=== PATIENT | female | born 1965 | race Caucasian/White ===

== ENCOUNTER 2016-07-23 20:27 | Observation (INO) | payer BC ==
[2016-07-23] MEDS ORDERED: BABY ASPIRIN 81 MG CHEW PO ONE (20:47)
[2016-07-23] MEDS ORDERED: Zofran 4 MG/2 ML VIAL IV ONE (20:53)
[2016-07-23] MEDS ORDERED: Hydromorphone 1 mg/ml Ampule IV ONE (20:54)
[2016-07-23] MEDS ORDERED: Sodium Chloride 0.9% 1000 ML 1,000 ML ONE (20:59)
[2016-07-23] MEDS ORDERED: Zofran 4 MG/2 ML VIAL ONE (20:59)
[2016-07-23] MEDS ORDERED: BABY ASPIRIN 81 MG CHEW ONE (20:59)
[2016-07-23] MEDS ORDERED: Hydromorphone 1 mg/ml Ampule ONE (20:59)
--- NOTE | 2016-07-23 21:00 | ERPHSYRPT ---
- History of Present Illness Time Seen by Provider: 07/23/16 20:45 Historian: patient Exam Limitations: clinical condition Patient Subjective Stated Complaint: pt is co pain in right shoulder radiating down arm to chest -increased pain with movement -no injury increased pain with movement Triage Nursing Assessment: pt is awake and alert and able to answer questions Physician History: PATIENT WITH A HISTORY OF HYPOTHYROIDISM COMPLAINS OF CHRONIC RIGHT SHOULDER PAIN FOR YEARS, NOW HAS RIGHT SIDED CHEST PAIN ADJACENT TO RIGHT SHOULDER. HAS HAD A PRODUCTIVE COUGH YELLOW GREEN SPUTUM FOR 3 WEEKS. DENIES FEVER OR CHILLS OR DYSPNEA. Timing/Duration: day(s) Activities at Onset: none Quality: sharpness Location: other (RIGHT LATERAL CHEST) Severity of Pain-Max: moderate Severity of Pain-Current: moderate Modifying Factors: Improves With: coughing, change in position Associated Symptoms: cough, hurts to breathe Prior Chest Pain/Cardiac Workup: no prior cardiac workup Nitro Today/Relief: no nitro taken today Aspirin Treatment Today: 81 mg x 4, provided by ED Allergies/Adverse Reactions: morphine Adverse Reaction (Mild, Verified 08/27/15 23:20) ITCH Home Medications: Acyclovir 800 mg [Zovirax 800 mg] 800 mg PO UD 07/20/15 [History] Duloxetine HCl 30 mg [Cymbalta 30 MG Capsule] 60 mg PO DAILY 07/20/15 [ History] Estradiol [Estrace] 2 mg PO DAILY 07/20/15 [History] Levothyroxine Sodium 150 Mcg [Synthroid 150 Mcg] 137 mcg PO DAILY 07/20/15 [History] Oxcarbazepine 300 mg [Trileptal 300 MG Tablet] 300 mg PO BID 07/20/15 [ History] Hx Tetanus, Diphtheria Vaccination/Date Given: Yes Hx Influenza Vaccination/Date Given: No Hx Pneumococcal Vaccination/Date Given: No - Review of Systems Constitutional: No Fever, No Chills Eyes: No Symptoms Ears, Nose, & Throat: No Symptoms Respiratory: Cough, No Dyspnea Cardiac: No Chest Pain, No Edema, No Syncope Abdominal/Gastrointestinal: No Symptoms, No Abdominal Pain, No Nausea, No Vomiting, No Diarrhea Genitourinary Symptoms: No Symptoms, No Dysuria Musculoskeletal: Joint Pain, Joint Swelling, No Back Pain, No Neck Pain Skin: No Rash Neurological: No Dizziness, No Focal Weakness, No Sensory Changes Psychological: No Symptoms Endocrine: No Symptoms All Other Systems: Reviewed and Negative - Past Medical History Pertinent Past Medical History: Yes Neurological History: No Pertinent History ENT History: No Pertinent History Cardiac History: No Pertinent History Respiratory History: No Pertinent History Endocrine Medical History: Diabetes Type II, Hypothyroidism Musculoskeletal History: No Pertinent History GI Medical History: No Pertinent History History: No Pertinent History Psycho-Social History: No Pertinent History Female Reproductive Disorders: Other Other Medical History: uterine ablation - Past Surgical History Past Surgical History: Yes Neuro Surgical History: No Pertinent History Cardiac: No Pertinent History Respiratory: No Pertinent History Gastrointestinal: No Pertinent History Musculoskeletal: Other Female Surgical History: Section, Hysterectomy, Lumpectomy Other Surgical History: carpal tunnel - Social History Smoking Status: Never smoker Exposure to second hand smoke: No Drug Use: none Patient Lives Alone: No Significant Family History: no pertinent family hx - Female History Hx Last Menstrual Period: hyst Hx Now: No - Nursing Vital Signs Temperature: 98 F Temperature Source: Oral Pulse Rate: 78 Respiratory Rate: 16 Pain Intensity: 8 - Physical Exam General Appearance: mild distress Eye Exam: PERRL/EOMI, eyes nml inspection Ears, Nose, Throat Exam: normal ENT inspection, moist mucous membranes Neck Exam: normal inspection, non-tender, supple, full range of motion Respiratory Exam: normal breath sounds, chest tenderness (TENDERNESS RIGHT CHEST WALL 1ST TO 4TH ICS ADJACENT TO RIGHT SHOULDER), diminished breath sounds (AT RIGHT BASE), No respiratory distress Cardiovascular Exam: regular rate/rhythm, normal heart sounds Gastrointestinal/Abdomen Exam: soft, normal bowel sounds, No tenderness, No mass Back Exam: normal inspection, No CVA tenderness, No vertebral tenderness Extremity Exam: normal inspection, limited range of motion, tenderness (MARKED TENDERNESS RIGHT HUMERAL HEAD, NO SWELLING OR ECCHYMOSIS) Neurologic Exam: alert, oriented x 3, cooperative, normal mood/affect, sensation nml, No motor deficits Skin Exam: normal color, warm, dry SpO2 Interpretation: normal SpO2: 99 Oxygen Delivery: Room Air - Course EKG Interpreted by Me: RATE, Sinus Rhythm, NORMAL AXIS, Right [place] Deviation - Radiology Exams Chest X-ray Interpretation: Interpreted by me (RIGHT INFRAHILAR INFILTRATE,) Ordered Tests: Active Orders 24 hr Category Date Time Status Activity as Tolerated TOLERATED Activity 07/23/16 23:26 Ordered Admission/Status Order ROUTINE Care 07/23/16 23:23 Ordered Call Admit Doctor for Orders ROUTINE Care 07/23/16 23:23 Ordered Code Status Order ROUTINE Care 07/23/16 23:23 Ordered EKG-ER Only STAT Care 07/23/16 20:47 Active EKG-ER Only STAT Care 07/23/16 20:50 Active IV Care Q6H Care 07/23/16 23:23 Ordered IV Insertion STAT Care 07/23/16 20:47 Active IV Insertion STAT Care 07/23/16 20:49 Active Implement Chest Pain Pathway ROUTINE Care 07/23/16 23:23 Ordered Oxygen-ED Only NASAL CANNULA 2 lpm Care 07/23/16 20:47 Active Jose Raul Alonzo, Apply ROUTINE Care 07/23/16 23:23 Ordered Telemetry ROUTINE Care 07/23/16 23:23 Ordered Vital Signs Q4H Care 07/23/16 23:23 Ordered Weight,Daily 0600 Care 07/23/16 23:23 Ordered Cardiac Diet Diet 07/23/16 Breakfast Ordered CHEST 1 VIEW (PORTABLE) Stat Exams 07/23/16 22:28 Taken BLOOD CULTURE Stat Lab 07/23/16 20:45 Ordered CBC W DIFF Stat Lab 07/23/16 21:02 Completed CMP Stat Lab 07/23/16 21:02 Completed D-DIMER QUANTITATION Stat Lab 07/23/16 21:00 Completed PROTIME WITH INR Stat Lab 07/23/16 21:02 Completed TROPONIN Q3H Lab 07/23/16 21:02 Completed TROPONIN Q3H Lab 07/24/16 00:00 Ordered TROPONIN Q3H Lab 07/24/16 03:00 Ordered TROPONIN Q3H Lab 07/24/16 06:00 Ordered TROPONIN Q3H Lab 07/24/16 09:00 Ordered EKG Q8HX2,QAMX3,PRN RT 07/23/16 23:23 Ordered Pulse Oximetry Q4H RT 07/23/16 23:23 Ordered Transfer Order Routine Transfer 07/23/16 23:22 Ordered Medication Summary Generic Name Dose Route Start Last Admin Trade Name Freq PRN Reason Stop Dose Admin Acetaminophen 650 mg 07/23/16 23:23 Tylenol 325 Mg PO 08/22/16 23:22 Q4H PRN PRN PAIN AND/OR FEVER Acetaminophen/Hydrocodone Bitart 1 tab 07/23/16 23:28 Lena 10/325 Mg Tablet PO 07/28/16 23:27 Q6H PRN PRN PAIN Aspirin 325 mg 07/24/16 10:00 Ecotrin 325 Mg PO 08/23/16 09:59 DAILY REGINA Duloxetine HCl 60 mg 07/24/16 22:00 Cymbalta 30 Mg Capsule PO 08/23/16 21:59 HS REGINA Sodium Chloride 1,000 mls @ 100 mls/hr 07/23/16 21:00 07/23/16 21:09 Sodium Chloride 0.9% 1000 Ml IV 08/22/16 20:59 100 mls/hr .Q10H REGINA Administration Azithromycin 250 mls @ 125 mls/hr 07/23/16 23:11 Zithromax 500 Mg/ 250 Ml Nacl Premix IV 07/24/16 01:10 STAT ONE Ceftriaxone Sodium/Dextrose 50 mls @ 100 mls/hr 07/23/16 23:11 07/23/16 23:23 Rocephin 1 Gm-D5w 50 Ml Bag IV 07/23/16 23:40 100 mls/hr STAT ONE Administration Ceftriaxone Sodium/Dextrose 1 g in 50 mls @ 100 mls/hr 07/23/16 23:30 Rocephin 1 Gm-D5w 50 Ml Bag IV 08/22/16 23:29 Q24H REGINA Sodium Chloride 500 mls @ 50 mls/hr 07/23/16 23:30 Sodium Chloride 0.9% 500 Ml IV 08/22/16 23:29 .Q10H [facility] Levothyroxine Sodium 150 mcg 07/24/16 10:00 Synthroid 150 Mcg PO 08/23/16 09:59 QAM [facility] Nitroglycerin 0.4 mg 07/23/16 23:23 Nitrostat 0.4 Mg Tablet SL 08/22/16 23:22 .Q5MIN PRN CHEST PAIN Ondansetron HCl 4 mg 07/23/16 23:23 Zofran 4 Mg/2 Ml Vial IV 08/22/16 23:22 Q4H PRN PRN NAUSEA/VOMITING Oxcarbazepine 300 mg 07/24/16 10:00 Trileptal 300 Mg Tablet PO 08/23/16 09:59 BID REGINA Discontinued Medications Generic Name Dose Route Start Last Admin Trade Name Guillermina PRKem Reason Stop Dose Admin Aspirin 324 mg 07/23/16 20:47 07/23/16 21:08 Baby Aspirin 81 Mg Chew PO 07/23/16 20:48 324 mg STAT ONE Administration Aspirin Confirm 07/23/16 20:59 Baby Aspirin 81 Mg Chew Administered 07/23/16 21:00 Dose 324 mg .ROUTE .STK-MED ONE Hydromorphone HCl 1 mg 07/23/16 20:54 07/23/16 21:09 Hydromorphone 1 Mg/Ml Ampule IV 07/23/16 20:55 1 mg STAT ONE Administration Hydromorphone HCl Confirm 07/23/16 20:59 Hydromorphone 1 Mg/Ml Ampule Administered 07/23/16 21:00 Dose 1 mg .ROUTE .STK-MED ONE Ceftriaxone Sodium/Dextrose Confirm 07/23/16 23:20 Rocephin 1 Gm-D5w 50 Ml Bag Administered 07/23/16 23:21 Dose 50 mls @ ud IV .STK-MED ONE Ketorolac Tromethamine 30 mg 07/23/16 22:11 07/23/16 22:23 Toradol 30 Mg Injection IV 07/23/16 22:12 30 mg STAT ONE Administration Ketorolac Tromethamine Confirm 07/23/16 22:21 Toradol 30 Mg Injection Administered 07/23/16 22:22 Dose 30 mg .ROUTE .STK-MED ONE Ondansetron HCl 4 mg 07/23/16 20:53 07/23/16 21:08 Zofran 4 Mg/2 Ml Vial IV 07/23/16 20:54 4 mg STAT ONE Administration Ondansetron HCl Confirm 07/23/16 20:59 Zofran 4 Mg/2 Ml Vial Administered 07/23/16 21:00 Dose 4 mg .ROUTE .STK-MED ONE Lab/Rad Data: Laboratory Result Diagrams 07/23/16 21:02 07/23/16 21:02 Laboratory Results 07/23/16 07/23/16 07/23/16 Range/Units 21:02 21:02 21:02 WBC (4.0-10.5) K/mm3 RBC (4.1-5.4) M/mm3 Hgb (12.0-16.0) gm/dl Hct (35-47) % MCV (78-100) fl MCH (26-32) pg MCHC (32-36) g/dl RDW (11.5-14.0) % Plt Count (150-450) K/mm3 MPV (6-9.5) fl Gran % (36.0-66.0) % Lymphocytes % (24.0-44.0) % Monocytes % (0.0-12.0) % Eosinophils % (0.00-5.0) % Basophils % (0.0-0.4) % Basophils # (0-0.4) INR 1.10 (0.8-3.0) D-Dimer (0.00-0.49) mg/L Sodium 137 (136-145) mEq/L Potassium 3.6 (3.5-5.1) mEq/L Chloride 101 (98-107) mEq/L Carbon Dioxide 29.1 (21-32) mEq/L Anion Gap 10.3 (5-15) MEQ/L BUN 24 H (9-20) mg/dL Creatinine 1.38 H (0.55-1.30) mg/dl Estimated GFR 43 ML/MIN Glucose 111 H (70-110) MG/DL Calcium 8.4 L (8.5-10.1) mg/dL Total Bilirubin 0.2 (0.2-1.0) mg/dL AST 22 (15-37) U/L ALT 15 (12-78) U/L Alkaline Phosphatase 149 H (46-116) U/L Troponin I < 0.017 (0.000-0.056) ng/ml Serum Total Protein 6.9 (6.4-8.2) gm/dL Albumin 3.4 (3.4-5.0) g/dL 07/23/16 07/23/16 Range/Units 21:02 21:00 WBC 10.6 H (4.0-10.5) K/mm3 RBC 4.24 (4.1-5.4) M/mm3 Hgb 12.2 (12.0-16.0) gm/dl Hct 37.0 (35-47) % MCV 87.3 (78-100) fl MCH 28.8 (26-32) pg MCHC 33.0 (32-36) g/dl RDW 12.9 (11.5-14.0) % Plt Count 280 (150-450) K/mm3 MPV 9.4 (6-9.5) fl Gran % 65.6 (36.0-66.0) % Lymphocytes % 25.2 (24.0-44.0) % Monocytes % 7.5 (0.0-12.0) % Eosinophils % 1.5 (0.00-5.0) % Basophils % 0.2 (0.0-0.4) % Basophils # 0.02 (0-0.4) INR (0.8-3.0) D-Dimer 0.257 (0.00-0.49) mg/L Sodium (136-145) mEq/L Potassium (3.5-5.1) mEq/L Chloride (98-107) mEq/L Carbon Dioxide (21-32) mEq/L Anion Gap (5-15) MEQ/L BUN (9-20) mg/dL Creatinine (0.55-1.30) mg/dl Estimated GFR ML/MIN Glucose (70-110) MG/DL Calcium (8.5-10.1) mg/dL Total Bilirubin (0.2-1.0) mg/dL AST (15-37) U/L ALT (12-78) U/L Alkaline Phosphatase (46-116) U/L Troponin I (0.000-0.056) ng/ml Serum Total Protein (6.4-8.2) gm/dL Albumin (3.4-5.0) g/dL - Progress Progress: improved Air Movement: good Blood Culture(s) Obtained: Yes Antibiotics given: Yes (ROCEPHIN 1GM, ZITHROMAX 500MG IVPB) Discussed with Dr.: Marc (AT 2245 FOR OBSERVATION) - Departure Time of Disposition: 23:30 Departure Disposition: Observation Clinical Impression: PNEUMONIA, ATYPICAL CHEST PAIN Condition: Stable Critical Care Time: No Referrals: DAHIANA DIAZ [Primary Care Provider] -
[2016-07-23 21:06] LABS: BASOPHIL % 0.2 % (0.0-0.4); Eosinophil % 1.5 % (0.00-5.0); Granulocytes % 65.6 % (36.0-66.0); Lymphocytes % 25.2 % (24.0-44.0); Mean Cell Volume 87.3 fl (78-100); Mean Corpuscular Hemoglobin 28.8 pg (26-32); Mean Platelet Volume 9.4 fl (6-9.5); Monocytes % 7.5 % (0.0-12.0); Platelet Count 280 K/mm3 (150-450); Red Blood Count 4.24 M/mm3 (4.1-5.4); Red Cell Distribution Width 12.9 % (11.5-14.0); White Blood Count 10.6 K/mm3 (4.0-10.5)
[2016-07-23] MEDS: Sodium Chloride 0.9% 1000 ML 1,000 ML IV SCH (21:09)
[2016-07-23 21:25] LABS: ALBUMIN 3.4 g/dL (3.4-5.0); ANION GAP 10.3 MEQ/L (5-15); BILIRUBIN,TOTAL 0.2 mg/dL (0.2-1.0); Carbon Dioxide 29.1 mEq/L (21-32); Potassium 3.6 mEq/L (3.5-5.1); Total Protein 6.9 gm/dL (6.4-8.2)
[2016-07-23 21:27] LABS: INR 1.1 (0.8-3.0); PROTIME 12.3 SECONDS (9.95-12.35)
[2016-07-23] MEDS ORDERED: TORAdol 30 mg Injection IV ONE (22:11)
[2016-07-23] MEDS ORDERED: TORAdol 30 mg Injection ONE (22:21)
[2016-07-23] MEDS ORDERED: ROCEPHIN 1 Gm-D5w 50 ml Bag** 50 ML IV ONE ×2 (23:11→23:20)
[2016-07-23] MEDS ORDERED: Zithromax 500 MG/ 250 ML NaCl Premix 250 ML IV ONE ×2 (23:11→23:33)
[2016-07-23] MEDS ORDERED: Nitrostat 0.4 MG Tablet SL PRN (23:23)
[2016-07-23] MEDS ORDERED: Zofran 4 MG/2 ML VIAL IV PRN (23:23)
[2016-07-23] MEDS ORDERED: TYLENOL 325 MG PO PRN (23:23)
[2016-07-23] MEDS ORDERED: ROCEPHIN 1 Gm-D5w 50 ml Bag** 1 G/50 ML IVPB IV SCH (23:30)
[2016-07-23] MEDS ORDERED: Sodium Chloride 0.9% 500 ML 500 ML IV SCH (23:30)
[2016-07-24] MEDS: Norco 10/325 MG Tablet PO PRN ×4 (01:41→20:54)
[2016-07-24] MEDS: Sodium Chloride 0.9% 1000 ML 1,000 ML IV SCH ×2 (07:12→20:58)
--- NOTE | 2016-07-24 08:45 | XRAY ---
Indication: Chest pain. Comparison: April 26, 2011. Portable chest less inflated today accentuating the cardiopulmonary structures. Query subtle right infrahilar infiltrate/atelectasis. Remaining heart, lungs, and bony thorax normal.
--- NOTE | 2016-07-24 09:14 | PCM.HP ---
History of Present Illness - Chief Complaint Chief Complaint: shoulder and chest pain History of Present Illness: is a 50 year old female who came to ER last night c/o R shoulder pain x 1 d. Pain is anterior R shoulder radiating into R upper chest and R upper back. Was 9/10 last night and she came to the ER. Worse with movement, better with pain meds. Troponins have been normal. CXR revealed R infrahilar infiltrates; abx given. D-dimer neg. BP elevated to 180 systolic. Creatinine elevated from past labs. Pt c/o some intermittent shoulder pain over the past few months. - Review of Systems Constitutional: Fever (2 wks ago) Respiratory: Cough (x 3 wjs) Cardiac: Chest Pain Abdominal/Gastrointestinal: Abdominal Pain (lower abd pain, intermittent, with diarrhea), Diarrhea (more frequent stools in past week or so. ) Musculoskeletal: Joint Pain Psychological: No Anxiety, No Depression, No Suicidal Ideations Medications & Allergies Home Medications: Home Medication List Acyclovir 800 mg [Zovirax 800 mg] 800 mg PO UD 07/20/15 [History Confirmed 07/24/16] Duloxetine HCl 30 mg [Cymbalta 30 MG Capsule] 60 mg PO DAILY 07/20/15 [ History Confirmed 07/24/16] Estradiol [Estrace] 2 mg PO DAILY 07/20/15 [History Confirmed 07/24/16] Levothyroxine Sodium 150 Mcg [Synthroid 150 Mcg] 137 mcg PO DAILY 07/20/15 [History Confirmed 07/24/16] Oxcarbazepine 300 mg [Trileptal 300 MG Tablet] 300 mg PO BID 07/20/15 [ History Confirmed 07/24/16] Hydrocodone/APAP 10/325 mg [[place] 10/325 MG Tablet] 1 tab PO Q4H PRN PRN # 15 tablet 08/28/15 [Rx Confirmed 07/24/16] Allergies/Adverse Reactions: Allergies Allergy/AdvReac Type Severity Reaction Status Date / Time morphine AdvReac Mild ITCH Verified 08/27/15 23:20 - Past Medical History Past Medical History: Yes Neurological History: No Pertinent History ENT History: No Pertinent History Cardiac History: No Pertinent History Respiratory History: No Pertinent History Endocrine Medical History: Hypothyroidism Musculoskelatal History: No Pertinent History GI Medical History: No Pertinent History History: No Pertinent History Pyscho-Social History: No Pertinent History Reproductive Disorders: Other Comment: uterine ablation - Female History Hx Last Menstrual Period: hyst Are you now?: No - Past Surgical History Past Surgical History: Yes Neuro Surgical History: No Pertinent History Cardiac History: No Pertinent History Respiratory Surgery: No Pertinent History GI Surgical History: No Pertinent History Genitourinary Surgical Hx: No Pertinent History Musculskeletal Surgical Hx: Other Female Surgical History: Section, Hysterectomy, Lumpectomy Other Surgical History: carpal tunnel - Social History Smoking Status: Never smoker Exposure to second hand smoke: No Alcohol: None Drug Use: none Significant Family History: no pertinent family hx - Physical Exam Vital Signs: Vital Signs - 24 hr Temp Pulse Resp BP Pulse Ox 07/24/16 08:00 20 07/24/16 07:58 97.9 F 72 20 180/81 94 L 07/24/16 04:00 97.7 F 73 22 153/71 98 07/24/16 00:26 97.9 F 82 17 138/17 97 General Appearance: no apparent distress, obese Neurologic Exam: alert, oriented x 3, cooperative Eye Exam: eyes nml inspection Neck Exam: normal inspection Respiratory Exam: normal breath sounds, lungs clear, other (R superior lateral chest ttp; no lesions), No crackles/rales, No rhonchi, No wheezing Cardiovascular Exam: regular rate/rhythm, normal heart sounds, No murmur Back Exam: normal inspection Extremity Exam: other (R shoulder ttp throughout; no lesions. no crepitus.), No pedal edema, No swelling Skin Exam: normal color, warm, dry Results - Labs Lab/Micro Results: Lab Results-Last 24 Hours 07/24/16 07/24/16 Range/Units 03:18 05:50 Troponin I < 0.017 < 0.017 (0.000-0.056) ng/ml - Other Procedures and Tests Respiratory Therapy 07/25/16 05:00 EKG DAILY 07/26/16 05:00 EKG DAILY 07/27/16 05:00 EKG DAILY Assessment/Plan (1) Chest pain Current Visit: Yes Status: Acute Assessment & Plan: troponins are negative Code(s): R07.9 - CHEST PAIN, UNSPECIFIED (2) Pneumonia Current Visit: Yes Status: Acute Qualifiers: Pneumonia type: due to unspecified organism Laterality: right Lung location: middle lobe of lung Qualified Code(s): J18.1 - Lobar pneumonia, unspecified organism Assessment & Plan: She is on zithromax and rocephin IV. exam benign. Code(s): J18.9 - PNEUMONIA, UNSPECIFIED ORGANISM (3) Shoulder pain Current Visit: Yes Status: Acute Qualifiers: Laterality: right Chronicity: acute Qualified Code(s): M25.511 - Pain in right shoulder Assessment & Plan: acute on chronic. check XR. Code(s): M25.519 - PAIN IN UNSPECIFIED SHOULDER (4) Renal insufficiency Current Visit: Yes Status: Acute Assessment & Plan: recheck in a.m., continue on IV fluids. previous Cr 1.09 in Apr 2016. (5) Elevated blood pressure reading without diagnosis of hypertension Current Visit: Yes Status: Acute Assessment & Plan: give norvasc here Code(s): R03.0 - ELEVATED BLOOD-PRESSURE READING, W/O DIAGNOSIS OF HTN
--- NOTE | 2016-07-24 09:48 | XRAY ---
Indication: Pain. No known injury. Comparison: None 3 views of the right shoulder demonstrates right lung calcified granuloma. No other bony, articular, or soft tissue abnormalities.
[2016-07-24] MEDS: SYNTHROID 150 MCG PO SCH (10:06)
[2016-07-24] MEDS: Trileptal 300 MG Tablet PO SCH ×2 (10:06→20:51)
[2016-07-24] MEDS: Ecotrin 325 MG PO SCH (10:06)
[2016-07-24] MEDS: NORVASC 5 MG PO SCH (10:08)
[2016-07-24] MEDS ORDERED: Cymbalta 30 MG Capsule PO SCH (22:00)
[2016-07-24] MEDS ORDERED: Zithromax 500 MG/ 250 ML NaCl Premix 250 ML IV SCH (22:00)
[2016-07-24] MEDS ORDERED: ROCEPHIN 1 Gm-D5w 50 ml Bag** 1 G/50 ML IVPB IV SCH (22:00)
[2016-07-25 06:01] LABS: BASOPHIL % 0.3 % (0.0-0.4); Eosinophil % 2.3 % (0.00-5.0); Lymphocytes % 34.3 % (24.0-44.0); Mean Cell Volume 89.1 fl (78-100); Mean Platelet Volume 9.5 fl (6-9.5); Monocytes % 5.1 % (0.0-12.0); Platelet Count 234 K/mm3 (150-450); Red Blood Count 3.96 M/mm3 (4.1-5.4); Red Cell Distribution Width 12.8 % (11.5-14.0); White Blood Count 6.8 K/mm3 (4.0-10.5)
[2016-07-25 07:20] VITALS: O2SAT 94
--- NOTE | 2016-07-25 08:50 | PCM.DS ---
Discharge Summary Date of Admission: 07/24/16 00:10 Admitting Physician: DAHIANA DIAZ Primary Care Provider: DAHIANA DIAZ Allergies Allergies morphine Adverse Reaction (Mild, Verified 08/27/15 23:20) ITCH Hospital Summary - Hospital Course Hospital Course: Pt admitted through ER with shoulder pain, found to have pneumonia. Today Pt is feeling much better. Shoulder pain has resolved. Maye po well. - Vitals & Intake/Output Vital Signs: Vital Signs Temperature 97.9 F 07/25/16 07:19 Pulse Rate 86 07/25/16 07:19 Respiratory Rate 18 07/25/16 07:19 Blood Pressure 135/65 07/25/16 07:19 O2 Sat by Pulse Oximetry 94 L 07/25/16 07:19 Intake & Output: Intake & Output 07/22/16 07/23/16 07/24/16 07/25/16 11:59 11:59 11:59 11:59 Intake Total 1323 3694 Output Total 600 Balance 723 3694 Weight 95.98 kg 96.887 kg - Lab Result Diagrams: 07/25/16 05:38 07/23/16 21:02 Lab Results-Last 24 Hrs: Lab Results-Last 24 Hours 07/24/16 07/25/16 Range/Units 09:00 05:38 WBC 6.8 (4.0-10.5) K/mm3 RBC 3.96 L (4.1-5.4) M/mm3 Hgb 11.5 L (12.0-16.0) gm/dl Hct 35.3 (35-47) % MCV 89.1 (78-100) fl MCH 29.0 (26-32) pg MCHC 32.6 (32-36) g/dl RDW 12.8 (11.5-14.0) % Plt Count 234 (150-450) K/mm3 MPV 9.5 (6-9.5) fl Gran % 58.0 (36.0-66.0) % Lymphocytes % 34.3 (24.0-44.0) % Monocytes % 5.1 (0.0-12.0) % Eosinophils % 2.3 (0.00-5.0) % Basophils % 0.3 (0.0-0.4) % Basophils # 0.02 (0-0.4) Troponin I < 0.017 (0.000-0.056) ng/ml - Radiology Exams Ordered Rad Exams-Entire Visit: Radiology Procedures Category Date Time Status SHOULDER Routine Exams 07/24/16 09:18 Completed - Procedures and Test Procedures and Tests throughout Hospitalization: Therapy Orders & Screens 07/23/16 23:23 EKG Q8HX2,QAMX3,PRN Comment: 07/24/16 06:59 EKG ROUTINE Comment: Diagnosis: shoulder and chest pain 07/25/16 05:00 EKG DAILY Comment: Diagnosis: shoulder and chest pain 07/26/16 05:00 EKG DAILY Comment: Diagnosis: shoulder and chest pain 07/27/16 05:00 EKG DAILY Comment: Diagnosis: shoulder and chest pain Discharge Exam General Appearance: no apparent distress Neurologic Exam: alert, oriented x 3, cooperative Skin Exam: normal color, warm, dry Respiratory Exam: normal breath sounds, lungs clear, No crackles/rales, No rhonchi, No wheezing Cardiovascular Exam: regular rate/rhythm, normal heart sounds, murmur Extremity Exam: No pedal edema, No swelling Back Exam: normal inspection Final Diagnosis/Problem List - Final Discharge Diagnosis/Problem (1) Chest pain Current Visit: Yes Status: Acute Assessment & Plan: MA ruled out. shoulder pain has resolved! Will discuss on follow up doing outpatient treadmill testing. (2) Pneumonia Current Visit: Yes Status: Acute Assessment & Plan: Home on po antibiotics after today's dose of IV antibiotics. (3) Shoulder pain Current Visit: Yes Status: Resolved (4) Renal insufficiency Current Visit: Yes Status: Resolved Assessment & Plan: Resolved with IV fluids. (5) Elevated blood pressure reading without diagnosis of hypertension Current Visit: Yes Status: Acute Assessment & Plan: much better; I started her on po norvasc and will continue this for now. Re- evaluate next week. - Discharge Disposition: Home, Self-Care Condition: Stable Prescriptions: New Amlodipine Besylate 5 mg [Norvasc 5 mg] 5 mg PO QAM #30 tablet Azithromycin [Zithromax] 250 mg PO DAILY #3 tablet Continue Estradiol [Estrace] 2 mg PO DAILY Duloxetine HCl 30 mg [Cymbalta 30 MG Capsule] 60 mg PO DAILY Oxcarbazepine 300 mg [Trileptal 300 MG Tablet] 300 mg PO BID Acyclovir 800 mg [Zovirax 800 mg] 800 mg PO UD Levothyroxine Sodium 150 Mcg [Synthroid 150 Mcg] 137 mcg PO DAILY Hydrocodone/APAP 10/325 mg [[place] 10/325 MG Tablet] 1 tab PO Q4H PRN PRN #15 tablet PRN Reason: Pain Follow up with: DAHIANA DIAZ [Primary Care Provider] -
[2016-07-25] MEDS: Ecotrin 325 MG PO SCH (09:27)
[2016-07-25] MEDS: SYNTHROID 150 MCG PO SCH (09:27)
[2016-07-25] MEDS: NORVASC 5 MG PO SCH (09:27)
[2016-07-25] MEDS: Trileptal 300 MG Tablet PO SCH (09:29)
[2016-07-25] MEDS ORDERED: FLUZONE QUAD 2016-2017 SYRINGE 36MO-64YO IM ONE (10:00)
[2016-07-25 11:44] VITALS: BP 133/72; PULSE 91
== END 2016-07-25 12:00 | disposition home or self-care (01) ==
LOC: ED 20:27 → MED SURG 07-24 00:10
PROVIDERS: ADMIT Family Medicine; ATTEND Family Medicine
DX: R07.9 Chest pain, unspecified (principal); J18.9 Pneumonia, unspecified organism; M25.511 Pain in right shoulder; N28.9 Disorder of kidney and ureter, unspecified; R03.0 Elevated blood-pressure reading, without diagnosis of hypertension; E03.9 Hypothyroidism, unspecified; Z79.899 Other long term (current) drug therapy; Z23 Encounter for immunization
CPT/HCPCS: 36000; 36415; 71010; 73030; 80048; 80053; 84484; 85025; 85379; 85610; 87040; 90686; 93005; 93268; 96374; 96375; 99285; G0378; J0456; J0696; J1170; J1885; J2405; A9270-GY

== ENCOUNTER 2017-10-04 06:08 | Day surgery (SDC) | payer BC ==
[2017-10-04] MEDS ORDERED: Ketamine HCl 50 MG/ML IV ONE (06:09)
[2017-10-04] MEDS ORDERED: DIPRIVAN 200 MG/20 ML IV ONE (06:09)
[2017-10-04] MEDS ORDERED: Lactated Ringers 1,000 ML IV ONE ×2 (06:21→08:27)
[2017-10-04] MEDS ORDERED: Lactated Ringers 1,000 ML IV SCH (06:30)
[2017-10-04 10:10] VITALS: O2SAT 98
[2017-10-04 10:12] VITALS: BP 155/89; PULSE 64
--- NOTE | 2017-10-04 12:55 | OP ---
SURGERY DATE/TIME: 10/04/2017 0800 PREOPERATIVE DIAGNOSIS: Screening colonoscopy. POSTOPERATIVE DIAGNOSIS: Proximal sigmoid colon polyp. PROCEDURE: Colonoscopy. SURGEON: Walter Crow M.D. ANESTHESIA: MAC by Ajith Vernon CRNA. ESTIMATED BLOOD LOSS: Minimal. SPECIMENS: Hot forceps polypectomy from proximal sigmoid colon. DESCRIPTION OF PROCEDURE: After informed written consent was obtained, the patient was taken to the endoscopy suite. She underwent monitored anesthesia and digital rectal exam showed normal sphincter tone and no internal lesions. The scope was inserted into the rectum and sequentially the entire colonic mucosa was traversed. The level of cecum was reached and verified with direct visualization of ileocecal valve. Upon withdrawal careful mucosal inspection revealed no gross abnormalities until the proximal sigmoid colon was reached. There was a sessile polyp which was removed with hot forceps in separate pieces with good hemostasis. The entire polyp appeared to be destroyed and removed following removal. No other lesions were encountered upon withdrawal. Retroflexion was performed and showed no internal lesions. The scope was removed and the patient was transferred to the recovery room in excellent condition.
== END 2017-10-04 09:45 | disposition home or self-care (01) ==
LOC: SDC 06:08
PROVIDERS: ATTEND Family Medicine
DX: K63.5 Polyp of colon (principal); Z12.11 Encounter for screening for malignant neoplasm of colon
CPT/HCPCS: 88305; J2704

== ENCOUNTER 2018-02-03 23:57 | Observation (INO) | payer BC ==
--- NOTE | 2018-02-04 00:22 | ERPHSYRPT ---
- History of Present Illness Time Seen by Provider: 02/04/18 00:16 Historian: patient Exam Limitations: no limitations Physician History: The patient is a 52-year-old female with her complaining of sudden onset of epigastric pain with nausea this afternoon. It was hurting before she ate lunch but became worse after eating. She's had similar pain for several years and has been intermittent but nothing this severe. She denies fever or chills. She denies vomiting. She denies diarrhea. Her past medical history is significant for hypothyroidism, trigeminal neuralgia, , and hysterectomy. Timing/Duration: today, hour(s) (9), sudden, worse Activities at Onset: none Quality: sharpness, stabbing Abdominal Pain Onset Location: epigastric Pain Radiation: no radiation Severity of Pain-Max: severe Severity of Pain-Current: severe Modifying Factors: Improves With: eating (worse) Associated Symptoms: nausea, No diarrhea, No fever/chills, No heartburn, No vomiting Previous symptoms: same symptoms as today, no recent treatment Allergies/Adverse Reactions: shrimp Allergy (Severe, Verified 10/04/17 07:14) Swelling of Tongue and Lips morphine Adverse Reaction (Mild, Verified 10/04/17 07:14) ITCH Home Medications: Estradiol [Estrace] 2 mg PO DAILY 07/20/15 [History] Levothyroxine Sodium 150 Mcg [Synthroid 150 Mcg] 150 mcg PO DAILY 07/20/15 [History] Oxcarbazepine 300 mg [Trileptal 300 MG Tablet] 300 mg PO BID 07/20/15 [ History] Bupropion HCl Xl 150 mg [Wellbutrin XL 150 MG] 150 mg PO DAILY 09/25/17 [ History] Duloxetine HCl 30 mg [Cymbalta 30 MG Capsule] 30 mg PO DAILY 10/04/17 [ History] Hx Tetanus, Diphtheria Vaccination/Date Given: Yes Hx Influenza Vaccination/Date Given: No Hx Pneumococcal Vaccination/Date Given: No - Review of Systems Constitutional: No Fever, No Chills Eyes: No Symptoms Ears, Nose, & Throat: No Symptoms Respiratory: No Cough, No Dyspnea Cardiac: No Chest Pain, No Edema, No Syncope Abdominal/Gastrointestinal: Abdominal Pain, Nausea, No Vomiting, No Diarrhea Genitourinary Symptoms: No Dysuria Musculoskeletal: No Back Pain, No Neck Pain Skin: No Rash Neurological: No Dizziness, No Focal Weakness, No Sensory Changes Psychological: No Symptoms Endocrine: No Symptoms Hematologic/Lymphatic: No Symptoms Immunological/Allergic: No Symptoms All Other Systems: Reviewed and Negative - Past Medical History Pertinent Past Medical History: Yes Neurological History: No Pertinent History ENT History: No Pertinent History Cardiac History: No Pertinent History Respiratory History: No Pertinent History Endocrine Medical History: Hypothyroidism Musculoskeletal History: No Pertinent History GI Medical History: Ulcer History: No Pertinent History Psycho-Social History: No Pertinent History Female Reproductive Disorders: Other Other Medical History: uterine ablation, hx of [facility]- 2014 - Past Surgical History Past Surgical History: Yes Neuro Surgical History: No Pertinent History Cardiac: No Pertinent History Respiratory: No Pertinent History Gastrointestinal: No Pertinent History Genitourinary: No Pertinent History Musculoskeletal: Other Female Surgical History: Section, Hysterectomy, Lumpectomy Other Surgical History: carpal tunnel- bilateral. uterine ablation - Social History Smoking Status: Never smoker Exposure to second hand smoke: No Drug Use: none Patient Lives Alone: No Significant Family History: no pertinent family hx - Nursing Vital Signs Nursing Vital Signs: Initial Vital Signs Temperature 98.4 F 02/03/18 23:58 Pulse Rate 84 02/03/18 23:58 Respiratory Rate 20 02/03/18 23:58 Blood Pressure 184/102 02/03/18 23:58 O2 Sat by Pulse Oximetry 95 02/03/18 23:58 Pain Scale Pain Intensity 9 - Physical Exam General Appearance: moderate distress, obese Eye Exam: PERRL/EOMI, eyes nml inspection Ears, Nose, Throat Exam: normal ENT inspection, pharynx normal, moist mucous membranes Neck Exam: normal inspection, non-tender, supple, full range of motion Respiratory Exam: normal breath sounds, lungs clear, No respiratory distress Cardiovascular Exam: regular rate/rhythm, normal heart sounds Gastrointestinal/Abdomen Exam: tenderness (epigastric) Pelvic Exam: not done Rectal Exam: not done Back Exam: normal inspection, normal range of motion, No CVA tenderness, No vertebral tenderness Extremity Exam: normal inspection, normal range of motion, pelvis stable Neurologic Exam: alert, oriented x 3, cooperative, normal mood/affect, nml cerebellar function, sensation nml, No motor deficits Skin Exam: normal color, warm, dry SpO2 Interpretation: normal SpO2: 95 Oxygen Delivery: Room Air - CT Exams Abdomen/Pelvis CT Interpretation: Tele-radiologist Report (per Dr Tinajero), Other (mild GB distention and mild wall edema) Ordered Tests: Active Orders 24 hr Category Date Time Status Clean Catch Urine Specimen STAT Care 02/04/18 00:25 Active EKG-ER Only STAT Care 02/04/18 00:25 Active IV Insertion STAT Care 02/04/18 00:25 Active ABDOMEN AND PELVIS W/0 CONTRAS [CT] Stat Exams 02/04/18 00:26 Taken CBC W DIFF Stat Lab 02/04/18 00:25 Completed CMP Stat Lab 02/04/18 00:25 Completed LIPASE Stat Lab 02/04/18 00:25 Completed Lactic Acid Stat Lab 02/04/18 00:25 Completed TROPONIN Q3H Lab 02/04/18 00:25 Received TROPONIN Q3H Lab 02/04/18 03:30 Ordered TROPONIN Q3H Lab 02/04/18 06:30 Ordered TROPONIN Q3H Lab 02/04/18 09:30 Ordered TROPONIN Q3H Lab 02/04/18 12:30 Ordered UA W/RFX UR CULTURE Stat Lab 02/04/18 00:25 Uncollected Urine Triage Profile Stat Lab 02/04/18 00:25 Uncollected Medication Summary Generic Name Dose Route Start Last Admin Trade Name Freq PRN Reason Stop Dose Admin Sodium Chloride 1,000 mls @ 999 mls/hr 02/04/18 00:25 02/04/18 00:55 Sodium Chloride 0.9% 1000 Ml IV 02/04/18 01:25 999 mls/hr .Q1H1M STA Administration Discontinued Medications Generic Name Dose Route Start Last Admin Trade Name Freq PRN Reason Stop Dose Admin Al Hydrox/Mg Hydrox/Simethicone Confirm 02/04/18 00:30 Maalox Es 30 Ml Unit Dose Administered 02/04/18 00:31 Dose 30 ml .ROUTE .STK-MED ONE Hydromorphone HCl 1 mg 02/04/18 00:25 02/04/18 00:55 Hydromorphone 1 Mg/Ml Ampule IV 02/04/18 00:26 1 mg STAT ONE Administration Hydromorphone HCl Confirm 02/04/18 00:42 Hydromorphone 1 Mg/Ml Ampule Administered 02/04/18 00:43 Dose 1 mg .ROUTE .STK-MED ONE Sodium Chloride Confirm 02/04/18 00:31 Sodium Chloride 0.9% 1000 Ml Administered 02/04/18 00:32 Dose 1,000 mls @ ud .ROUTE .STK-MED ONE Lidocaine HCl Confirm 02/04/18 00:30 Xylocaine Hcl Viscous * Administered 02/04/18 00:31 Dose 15 ml .ROUTE .STK-MED ONE Magnesium Hydroxide 45 ml 02/04/18 00:25 02/04/18 00:55 Gi Cocktail 45 Ml (Maalox/Lidocaine) PO 02/04/18 00:26 45 ml STAT ONE Administration Promethazine HCl 12.5 mg 02/04/18 00:25 02/04/18 00:55 Phenergan 25 Mg Inj IV 02/04/18 00:26 12.5 mg STAT ONE Administration Promethazine HCl Confirm 02/04/18 00:30 Phenergan 25 Mg Inj Administered 02/04/18 00:31 Dose 25 mg .ROUTE .STK-MED ONE Lab/Rad Data: Laboratory Result Diagrams 02/04/18 00:25 02/04/18 00:25 Laboratory Results 02/04/18 02/04/18 02/04/18 Range/Units 00:25 00:25 00:25 WBC 8.4 (4.0-10.5) K/mm3 RBC 4.98 (4.1-5.4) M/mm3 Hgb 14.6 (12.0-16.0) gm/dl Hct 42.8 (35-47) % MCV 85.9 (78-100) fl MCH 29.3 (26-32) pg MCHC 34.1 (32-36) g/dl RDW 13.1 (11.5-14.0) % Plt Count 310 (150-450) K/mm3 MPV 9.7 H (6-9.5) fl Gran % 57.9 (36.0-66.0) % Eos # (Auto) 0.19 (0-0.5) Absolute Lymphs (auto) 2.79 (1.0-4.6) Absolute Monos (auto) 0.55 (0.0-1.3) Lymphocytes % 33.1 (24.0-44.0) % Monocytes % 6.5 (0.0-12.0) % Eosinophils % 2.3 (0.00-5.0) % Basophils % 0.2 (0.0-0.4) % Absolute Granulocytes 4.87 (1.4-6.9) Basophils # 0.02 (0-0.4) Sodium 140 (137-145) mmol/L Potassium 4.1 (3.5-5.1) mmol/L Chloride 103 (98-107) mmol/L Carbon Dioxide 27 (22-30) mmol/L Anion Gap 15.2 H (5-15) MEQ/L BUN 22 H (7-17) mg/dL Creatinine 1.19 H (0.52-1.04) mg/dL Estimated GFR 50.6 ML/MIN Glucose 102 (74-106) mg/dL Lactic Acid 1.5 (0.4-2.0) Calcium 9.5 (8.4-10.2) mg/dL Total Bilirubin 0.20 (0.2-1.3) mg/dL AST 19 (14-36) U/L ALT 13 (0-35) U/L Alkaline Phosphatase 159 H (38-126) U/L Serum Total Protein 6.6 (6.3-8.2) g/dL Albumin 4.1 (3.5-5.0) g/dL Lipase 122 (23-300) U/L - Progress Progress: improved Discussed with : Marc Will see patient in: hospital (observation) Counseled pt/family regarding: lab results, diagnosis, rad results - Departure Time of Disposition: 01:19 Departure Disposition: Observation (per Dr Yovany Belcher) Clinical Impression: Abdominal pain, Gall bladder disease Condition: Stable Critical Care Time: No Referrals: DAHIANA DIAZ [Primary Care Provider] -
[2018-02-04] MEDS ORDERED: Sodium Chloride 0.9% 1000 ML 1,000 ML IV STA (00:25)
[2018-02-04] MEDS ORDERED: GI COCKTAIL 45 ML (Maalox/Lidocaine) PO ONE (00:25)
[2018-02-04] MEDS ORDERED: Hydromorphone 1 mg/ml Ampule IV ONE (00:25)
[2018-02-04] MEDS ORDERED: Phenergan 25 MG INJ IV ONE (00:25)
[2018-02-04] MEDS ORDERED: MAALOX ES 30 ML UNIT DOSE ONE (00:30)
[2018-02-04] MEDS ORDERED: XYLOCAINE HCl Viscous ONE (00:30)
[2018-02-04] MEDS ORDERED: Phenergan 25 MG INJ ONE (00:30)
[2018-02-04] MEDS ORDERED: Sodium Chloride 0.9% 1000 ML 1,000 ML ONE (00:31)
[2018-02-04 00:39] LABS: BASOPHIL % 0.2 % (0.0-0.4); Basophil (Absolute #) 0.02 (0-0.4); Eosinophil % 2.3 % (0.00-5.0); Eosinophil (Absolute #) 0.19 (0-0.5); Granulocyte Absolute (ANC) 4.87 (1.4-6.9); Granulocytes % 57.9 % (36.0-66.0); Hematocrit 42.8 % (35-47); Hemoglobin 14.6 gm/dl (12.0-16.0); Lymphocyte (Absolute #) 2.79 (1.0-4.6); Lymphocytes % 33.1 % (24.0-44.0); Mean Cell Volume 85.9 fl (78-100); Mean Corpuscular Hemoglobin 29.3 pg (26-32); Mean Corpuscular Hgb Concent. 34.1 g/dl (32-36); Mean Platelet Volume 9.7 fl (6-9.5); Monocyte (Absolute #) 0.55 (0.0-1.3); Monocytes % 6.5 % (0.0-12.0); Platelet Count 310 K/mm3 (150-450); Red Blood Count 4.98 M/mm3 (4.1-5.4); Red Cell Distribution Width 13.1 % (11.5-14.0); White Blood Count 8.4 K/mm3 (4.0-10.5)
[2018-02-04] MEDS ORDERED: Hydromorphone 1 mg/ml Ampule ONE (00:42)
[2018-02-04 01:03] LABS: ALBUMIN 4.1 g/dL (3.5-5.0); ANION GAP 15.2 MEQ/L (5-15); BILIRUBIN,TOTAL 0.2 mg/dL (0.2-1.3); Calcium 9.5 mg/dL (8.4-10.2); Creatinine 1 1.19 mg/dL (0.52-1.04); Potassium 4.1 mmol/L (3.5-5.1); Total Protein 6.6 g/dL (6.3-8.2)
[2018-02-04] MEDS ORDERED: Sodium Chloride 0.9% 1000 ML 1,000 ML IV SCH (02:20)
[2018-02-04] MEDS ORDERED: Zofran 4 MG/2 ML VIAL IV PRN (02:20)
[2018-02-04 02:26] LABS: Appearance SLIGHTLY CLOUDY (CLEAR); Bilirubin NEGATIVE (NEGATIVE); Blood SMALL Ery/ul (0-5); Glucose NEGATIVE (NEGATIVE); Ketones NEGATIVE (NEGATIVE); Leukocyte Esterase NEGATIVE (NEGATIVE); Nitrite NEGATIVE (NEGATIVE); Protein,Urine Dip NEGATIVE (Negative); Specific Gravity 1.027 (1.005-1.025); Urobilinogen 4 mg/dL (0-1)
[2018-02-04] MEDS: DILAUDID 2 MG INJECTION IV PRN ×2 (02:28→07:23)
[2018-02-04 02:34] LABS: Amphetamine,Urine NEGATIVE (NEGATIVE); Barbiturate,Urine NEGATIVE (NEGATIVE); Benzodiazepine,Urine NEGATIVE (NEGATIVE); Cocaine,Urine NEGATIVE (NEGATIVE); Methadone,Urine NEGATIVE (NEGATIVE); Opiate,Urine POSITIVE (NEGATIVE); PCP,Urine NEGATIVE (NEGATIVE); THC,Urine NEGATIVE (NEGATIVE)
[2018-02-04] MEDS: Unasyn 3GM / NaCl 100ML 3 GM/100 ML IVPB IV SCH ×3 (05:45→18:06)
[2018-02-04] MEDS ORDERED: Zemuron 100 MG/10 ML IJ ONE (06:00)
[2018-02-04] MEDS ORDERED: DIPRIVAN 200 MG/20 ML IV ONE (06:00)
[2018-02-04] MEDS ORDERED: BRIDION 200MG/2ML IV ONE (06:00)
[2018-02-04 06:56] LABS: BASOPHIL % 0.2 % (0.0-0.4); Basophil (Absolute #) 0.01 (0-0.4); Eosinophil % 2.3 % (0.00-5.0); Eosinophil (Absolute #) 0.15 (0-0.5); Granulocyte Absolute (ANC) 3.68 (1.4-6.9); Granulocytes % 56.1 % (36.0-66.0); Hematocrit 38.1 % (35-47); Hemoglobin 12.6 gm/dl (12.0-16.0); Lymphocyte (Absolute #) 2.26 (1.0-4.6); Lymphocytes % 34.5 % (24.0-44.0); Mean Cell Volume 88.6 fl (78-100); Mean Corpuscular Hemoglobin 29.3 pg (26-32); Mean Corpuscular Hgb Concent. 33.1 g/dl (32-36); Mean Platelet Volume 9.2 fl (6-9.5); Monocyte (Absolute #) 0.45 (0.0-1.3); Monocytes % 6.9 % (0.0-12.0); Platelet Count 233 K/mm3 (150-450); Red Cell Distribution Width 13.2 % (11.5-14.0); White Blood Count 6.6 K/mm3 (4.0-10.5)
[2018-02-04 07:25] LABS: ALBUMIN 3.4 g/dL (3.5-5.0); ALKALINE PHOSPHATASE 128 U/L (38-126); ANION GAP 8.8 MEQ/L (5-15); BILIRUBIN,TOTAL < 0.10 mg/dL (0.2-1.3); BLOOD UREA NITROGEN 23 mg/dL (7-17); CHLORIDE 106 mmol/L (98-107); Calcium 8.6 mg/dL (8.4-10.2); Carbon Dioxide 30 mmol/L (22-30); Creatinine 1 1.21 mg/dL (0.52-1.04); Glucose 93 mg/dL (74-106); Potassium 4.6 mmol/L (3.5-5.1); SGOT/AST 16 U/L (14-36); SGPT/ALT 11 U/L (0-35); SODIUM 141 mmol/L (137-145)
--- NOTE | 2018-02-04 08:48 | PCM.HP ---
History of Present Illness - Chief Complaint Chief Complaint: Abdominal pain, Gallbladder disease History of Present Illness: is a 52 year old female pt of mine from [facility] with hypothyroidism and trigeminal neuralgia who came in to ER yesterday c/o abdominal pain. She has had some abd pain off and on for about 3 years, but last night was having 10/10 sharp epigastric pain, constant, no relieved by position change or deep breathing. Came to ER where teleradiology reported CT abd/pelvis with distension of abdomen and gallbladder wall thickening. Pt had pain meds just before my exam and reports pain 2/10 currently. Has had some nausea, no vomiting. - Review of Systems Constitutional: No Fever Abdominal/Gastrointestinal: Abdominal Pain, Nausea Neurological: Vertigo (at times when lying down; sometimes light headed when standing), Other (trigem neuralgia) Psychological: No Anxiety, No Depression, No Suicidal Ideations All Other Systems: Reviewed and Negative Medications & Allergies Home Medications: Home Medication List Estradiol [Estrace] 2 mg PO DAILY 07/20/15 [History Confirmed 02/04/18] Levothyroxine Sodium 150 Mcg [Synthroid 150 Mcg] 150 mcg PO DAILY 07/20/15 [History Confirmed 02/04/18] Oxcarbazepine 300 mg [Trileptal 300 MG Tablet] 300 mg PO BID 07/20/15 [ History Confirmed 02/04/18] Bupropion HCl Xl 150 mg [Wellbutrin XL 150 MG] 150 mg PO DAILY 09/25/17 [ History Confirmed 02/04/18] Duloxetine HCl 30 mg [Cymbalta 30 MG Capsule] 30 mg PO DAILY 10/04/17 [ History Confirmed 02/04/18] Allergies/Adverse Reactions: Allergies Allergy/AdvReac Type Severity Reaction Status Date / Time shrimp Allergy Severe Swelling Verified 02/04/18 02:58 of Tongue and Lips morphine AdvReac Mild ITCH Verified 02/04/18 02:58 - Past Medical History Past Medical History: Yes Neurological History: Other ENT History: No Pertinent History Cardiac History: No Pertinent History Respiratory History: No Pertinent History Endocrine Medical History: Hypothyroidism Musculoskelatal History: No Pertinent History GI Medical History: Ulcer History: No Pertinent History Pyscho-Social History: No Pertinent History Reproductive Disorders: Other Comment: hx of shingles- 2015, trigeminal neuralgia - Female History Are you now?: No - Past Surgical History Past Surgical History: Yes Neuro Surgical History: No Pertinent History Cardiac History: No Pertinent History Respiratory Surgery: No Pertinent History GI Surgical History: No Pertinent History Genitourinary Surgical Hx: No Pertinent History Musculskeletal Surgical Hx: Other Female Surgical History: Section, Hysterectomy, Lumpectomy Other Surgical History: carpal tunnel- bilateral. uterine ablation - Social History Smoking Status: Never smoker Exposure to second hand smoke: No Alcohol: None Drug Use: none Significant Family History: no pertinent family hx - Physical Exam Vital Signs: Vital Signs - 24 hr Temp Pulse Resp BP Pulse Ox 02/04/18 07:23 98.5 F 71 17 138/75 96 02/04/18 04:20 98.4 F 86 16 149/78 98 02/04/18 02:47 98.4 F 74 18 171/81 98 02/04/18 01:40 141/86 02/04/18 01:23 95 02/04/18 00:48 83 164/93 98 02/03/18 23:58 98.4 F 84 20 184/102 95 General Appearance: no apparent distress, obese Neurologic Exam: alert, oriented x 3, cooperative Eye Exam: eyes nml inspection Ears, Nose, Throat Exam: other (mild dry mouth) Neck Exam: normal inspection, non-tender, No lymphadenopathy Respiratory Exam: normal breath sounds, lungs clear, No crackles/rales, No rhonchi, No wheezing Cardiovascular Exam: regular rate/rhythm, normal heart sounds, No murmur Gastrointestinal/Abdomen Exam: soft, tenderness (RLQ, RUQ, but particularly in epigastrum), No normal bowel sounds (hypoactive but present), No distention, No mass, No guarding, No rebound Back Exam: normal inspection, No rash Extremity Exam: normal inspection, No swelling (no pretibial edema bilat) Skin Exam: normal color, warm, dry, No rash Results - Labs Lab/Micro Results: Lab Results-Last 24 Hours 02/04/18 02/04/18 02/04/18 Range/Units 00:25 00:25 00:25 WBC 8.4 (4.0-10.5) K/mm3 RBC 4.98 (4.1-5.4) M/mm3 Hgb 14.6 (12.0-16.0) gm/dl Hct 42.8 (35-47) % MCV 85.9 (78-100) fl MCH 29.3 (26-32) pg MCHC 34.1 (32-36) g/dl RDW 13.1 (11.5-14.0) % Plt Count 310 (150-450) K/mm3 MPV 9.7 H (6-9.5) fl Gran % 57.9 (36.0-66.0) % Eos # (Auto) 0.19 (0-0.5) Absolute Lymphs (auto) 2.79 (1.0-4.6) Absolute Monos (auto) 0.55 (0.0-1.3) Lymphocytes % 33.1 (24.0-44.0) % Monocytes % 6.5 (0.0-12.0) % Eosinophils % 2.3 (0.00-5.0) % Basophils % 0.2 (0.0-0.4) % Absolute Granulocytes 4.87 (1.4-6.9) Basophils # 0.02 (0-0.4) Sodium 140 (137-145) mmol/L Potassium 4.1 (3.5-5.1) mmol/L Chloride 103 (98-107) mmol/L Carbon Dioxide 27 (22-30) mmol/L Anion Gap 15.2 H (5-15) MEQ/L BUN 22 H (7-17) mg/dL Creatinine 1.19 H (0.52-1.04) mg/dL Estimated GFR 50.6 ML/MIN Glucose 102 (74-106) mg/dL Lactic Acid 1.5 (0.4-2.0) Calcium 9.5 (8.4-10.2) mg/dL Total Bilirubin 0.20 (0.2-1.3) mg/dL AST 19 (14-36) U/L ALT 13 (0-35) U/L Alkaline Phosphatase 159 H (38-126) U/L Troponin I (0.000-0.034) ng/mL Serum Total Protein 6.6 (6.3-8.2) g/dL Albumin 4.1 (3.5-5.0) g/dL Lipase 122 (23-300) U/L Urine Color (YELLOW) Urine Appearance (CLEAR) Urine pH (5-6) Ur Specific [place] (1.005-1.025) Urine Protein (Negative) Urine Ketones (NEGATIVE) Urine Blood (0-5) Contreras/ul Urine Nitrite (NEGATIVE) Urine Bilirubin (NEGATIVE) Urine Urobilinogen (0-1) mg/dL Ur Leukocyte Esterase (NEGATIVE) Urine WBC (Auto) (0-5) /HPF Urine RBC (Auto) (0-2) /HPF U Epithel Cells (Auto) (FEW) /HPF Urine Bacteria (Auto) (NEGATIVE) /HPF Urine Mucus (Auto) (NEGATIVE) /HPF Urine Culture Reflexed (NO) Urine Glucose (NEGATIVE) mg/dL Urine Opiates Level (NEGATIVE) Ur Methadone (NEGATIVE) Urine Barbiturates (NEGATIVE) Ur Phencyclidine (PCP) (NEGATIVE) Urine Amphetamine (NEGATIVE) U Benzodiazepine Level (NEGATIVE) Urine Cocaine (NEGATIVE) Urine Marijuana (THC) (NEGATIVE) 02/04/18 02/04/18 02/04/18 Range/Units 00:25 02:00 02:00 WBC (4.0-10.5) K/mm3 RBC (4.1-5.4) M/mm3 Hgb (12.0-16.0) gm/dl Hct (35-47) % MCV (78-100) fl MCH (26-32) pg MCHC (32-36) g/dl RDW (11.5-14.0) % Plt Count (150-450) K/mm3 MPV (6-9.5) fl Gran % (36.0-66.0) % Eos # (Auto) (0-0.5) Absolute Lymphs (auto) (1.0-4.6) Absolute Monos (auto) (0.0-1.3) Lymphocytes % (24.0-44.0) % Monocytes % (0.0-12.0) % Eosinophils % (0.00-5.0) % Basophils % (0.0-0.4) % Absolute Granulocytes (1.4-6.9) Basophils # (0-0.4) Sodium (137-145) mmol/L Potassium (3.5-5.1) mmol/L Chloride (98-107) mmol/L Carbon Dioxide (22-30) mmol/L Anion Gap (5-15) MEQ/L BUN (7-17) mg/dL Creatinine (0.52-1.04) mg/dL Estimated GFR ML/MIN Glucose (74-106) mg/dL Lactic Acid (0.4-2.0) Calcium (8.4-10.2) mg/dL Total Bilirubin (0.2-1.3) mg/dL AST (14-36) U/L ALT (0-35) U/L Alkaline Phosphatase (38-126) U/L Troponin I < 0.012 (0.000-0.034) ng/mL Serum Total Protein (6.3-8.2) g/dL Albumin (3.5-5.0) g/dL Lipase (23-300) U/L Urine Color YELLOW (YELLOW) Urine Appearance SLIGHTLY CLOUDY (CLEAR) Urine pH 5.0 (5-6) Ur Specific [place] 1.027 (1.005-1.025) Urine Protein NEGATIVE (Negative) Urine Ketones NEGATIVE (NEGATIVE) Urine Blood SMALL (0-5) Contreras/ul Urine Nitrite NEGATIVE (NEGATIVE) Urine Bilirubin NEGATIVE (NEGATIVE) Urine Urobilinogen 4 (0-1) mg/dL Ur Leukocyte Esterase NEGATIVE (NEGATIVE) Urine WBC (Auto) 3-5 (0-5) /HPF Urine RBC (Auto) 6-10 (0-2) /HPF U Epithel Cells (Auto) RARE (FEW) /HPF Urine Bacteria (Auto) RARE (NEGATIVE) /HPF Urine Mucus (Auto) SLIGHT (NEGATIVE) /HPF Urine Culture Reflexed NO (NO) Urine Glucose NEGATIVE (NEGATIVE) mg/dL Urine Opiates Level POSITIVE (NEGATIVE) Ur Methadone NEGATIVE (NEGATIVE) Urine Barbiturates NEGATIVE (NEGATIVE) Ur Phencyclidine (PCP) NEGATIVE (NEGATIVE) Urine Amphetamine NEGATIVE (NEGATIVE) U Benzodiazepine Level NEGATIVE (NEGATIVE) Urine Cocaine NEGATIVE (NEGATIVE) Urine Marijuana (THC) NEGATIVE (NEGATIVE) 02/04/18 02/04/18 02/04/18 Range/Units 03:30 06:35 06:35 WBC 6.6 (4.0-10.5) K/mm3 RBC 4.30 (4.1-5.4) M/mm3 Hgb 12.6 (12.0-16.0) gm/dl Hct 38.1 (35-47) % MCV 88.6 (78-100) fl MCH 29.3 (26-32) pg MCHC 33.1 (32-36) g/dl RDW 13.2 (11.5-14.0) % Plt Count 233 (150-450) K/mm3 MPV 9.2 (6-9.5) fl Gran % 56.1 (36.0-66.0) % Eos # (Auto) 0.15 (0-0.5) Absolute Lymphs (auto) 2.26 (1.0-4.6) Absolute Monos (auto) 0.45 (0.0-1.3) Lymphocytes % 34.5 (24.0-44.0) % Monocytes % 6.9 (0.0-12.0) % Eosinophils % 2.3 (0.00-5.0) % Basophils % 0.2 (0.0-0.4) % Absolute Granulocytes 3.68 (1.4-6.9) Basophils # 0.01 (0-0.4) Sodium (137-145) mmol/L Potassium (3.5-5.1) mmol/L Chloride (98-107) mmol/L Carbon Dioxide (22-30) mmol/L Anion Gap (5-15) MEQ/L BUN (7-17) mg/dL Creatinine (0.52-1.04) mg/dL Estimated GFR ML/MIN Glucose (74-106) mg/dL Lactic Acid (0.4-2.0) Calcium (8.4-10.2) mg/dL Total Bilirubin (0.2-1.3) mg/dL AST (14-36) U/L ALT (0-35) U/L Alkaline Phosphatase (38-126) U/L Troponin I < 0.012 < 0.012 (0.000-0.034) ng/mL Serum Total Protein (6.3-8.2) g/dL Albumin (3.5-5.0) g/dL Lipase (23-300) U/L Urine Color (YELLOW) Urine Appearance (CLEAR) Urine pH (5-6) Ur Specific [place] (1.005-1.025) Urine Protein (Negative) Urine Ketones (NEGATIVE) Urine Blood (0-5) Contreras/ul Urine Nitrite (NEGATIVE) Urine Bilirubin (NEGATIVE) Urine Urobilinogen (0-1) mg/dL Ur Leukocyte Esterase (NEGATIVE) Urine WBC (Auto) (0-5) /HPF Urine RBC (Auto) (0-2) /HPF U Epithel Cells (Auto) (FEW) /HPF Urine Bacteria (Auto) (NEGATIVE) /HPF Urine Mucus (Auto) (NEGATIVE) /HPF Urine Culture Reflexed (NO) Urine Glucose (NEGATIVE) mg/dL Urine Opiates Level (NEGATIVE) Ur Methadone (NEGATIVE) Urine Barbiturates (NEGATIVE) Ur Phencyclidine (PCP) (NEGATIVE) Urine Amphetamine (NEGATIVE) U Benzodiazepine Level (NEGATIVE) Urine Cocaine (NEGATIVE) Urine Marijuana (THC) (NEGATIVE) 02/04/18 02/04/18 Range/Units 06:35 07:12 WBC (4.0-10.5) K/mm3 RBC (4.1-5.4) M/mm3 Hgb (12.0-16.0) gm/dl Hct (35-47) % MCV (78-100) fl MCH (26-32) pg MCHC (32-36) g/dl RDW (11.5-14.0) % Plt Count (150-450) K/mm3 MPV (6-9.5) fl Gran % (36.0-66.0) % Eos # (Auto) (0-0.5) Absolute Lymphs (auto) (1.0-4.6) Absolute Monos (auto) (0.0-1.3) Lymphocytes % (24.0-44.0) % Monocytes % (0.0-12.0) % Eosinophils % (0.00-5.0) % Basophils % (0.0-0.4) % Absolute Granulocytes (1.4-6.9) Basophils # (0-0.4) Sodium 141 (137-145) mmol/L Potassium 4.6 (3.5-5.1) mmol/L Chloride 106 (98-107) mmol/L Carbon Dioxide 30 (22-30) mmol/L Anion Gap 8.8 (5-15) MEQ/L BUN 23 H (7-17) mg/dL Creatinine 1.21 H (0.52-1.04) mg/dL Estimated GFR 49.7 ML/MIN Glucose 93 (74-106) mg/dL Lactic Acid 0.9 (0.4-2.0) Calcium 8.6 (8.4-10.2) mg/dL Total Bilirubin < 0.10 L (0.2-1.3) mg/dL AST 16 (14-36) U/L ALT 11 (0-35) U/L Alkaline Phosphatase 128 H (38-126) U/L Troponin I (0.000-0.034) ng/mL Serum Total Protein 6.0 L (6.3-8.2) g/dL Albumin 3.4 L (3.5-5.0) g/dL Lipase (23-300) U/L Urine Color (YELLOW) Urine Appearance (CLEAR) Urine pH (5-6) Ur Specific [place] (1.005-1.025) Urine Protein (Negative) Urine Ketones (NEGATIVE) Urine Blood (0-5) Contreras/ul Urine Nitrite (NEGATIVE) Urine Bilirubin (NEGATIVE) Urine Urobilinogen (0-1) mg/dL Ur Leukocyte Esterase (NEGATIVE) Urine WBC (Auto) (0-5) /HPF Urine RBC (Auto) (0-2) /HPF U Epithel Cells (Auto) (FEW) /HPF Urine Bacteria (Auto) (NEGATIVE) /HPF Urine Mucus (Auto) (NEGATIVE) /HPF Urine Culture Reflexed (NO) Urine Glucose (NEGATIVE) mg/dL Urine Opiates Level (NEGATIVE) Ur Methadone (NEGATIVE) Urine Barbiturates (NEGATIVE) Ur Phencyclidine (PCP) (NEGATIVE) Urine Amphetamine (NEGATIVE) U Benzodiazepine Level (NEGATIVE) Urine Cocaine (NEGATIVE) Urine Marijuana (THC) (NEGATIVE) - Radiology Impressions Radiology Exams & Impressions: Radiology Procedures Category Date Time Status ABDOMEN AND PELVIS W/0 CONTRAS [CT] Stat Exams 02/04/18 00:26 Taken GALLBLADDER [US] Urgent Exams 02/04/18 Ordered Assessment/Plan (1) Abdominal pain Current Visit: Yes Status: Acute Qualifiers: Abdominal location: epigastric Qualified Code(s): R10.13 - Epigastric pain Assessment & Plan: Gallbladder dz vs gastric pain. WBC nl and afebrile. Gallbladder u/s ordered for this morning. Surgery consulted, thank you. I let pt know that surgery may opt to do EGD prior to committing to surgery, depending on what Dr. Burns thinks of the imaging. Pt is being ruled out for DC due to epigastric pain; troponins neg x 3. Code(s): R10.9 - UNSPECIFIED ABDOMINAL PAIN (2) Renal insufficiency Current Visit: No Status: Resolved Assessment & Plan: recheck in a.m.
[2018-02-04] MEDS ORDERED: Lactated Ringers 1,000 ML IV SCH (09:00)
--- NOTE | 2018-02-04 09:27 | XRAY ---
Exam: CT of the abdomen and pelvis without IV contrast from 02/04/2018. CTDI: 23.48 Comparison: CT of the abdomen and pelvis with IV contrast from 02/28/2017. Indication: 52-year-old female with upper mid abdominal and epigastric pain since 1600 hrs. which has increased. The patient gives a history of prior hysterectomy and section. Technique: Non-IV contrast axial CT images were obtained through the abdomen and pelvis. Reconstructed coronal and sagittal images were created and reviewed. Findings: I see a couple prominent calcified granulomas at the right lung base representing no change. There are also 2 stable granulomatous calcifications adjacent to the anterior margin of the distal thoracic esophagus representing no change. The remainder of the visualized lung bases appears clear. There is mild to moderate gastric distention with abundant secretions and/or fluid within it as well as a mild amount of posterior dependent high attenuation material which may relate to medication. The small bowel and colon appear nonobstructed. Moderate scattered colonic stool is seen. I see no definite bowel wall thickening. The appendix appears unremarkable within the right lower quadrant. There is no evidence of appendicitis. Evaluation of the solid organs is limited on this non-IV contrast study only. With this limitation in mind, I see no abnormality of the liver. No intrahepatic biliary duct distention is seen. The gallbladder does appear borderline dilated measuring at least 4 cm in width. There is also a question of slight gallbladder wall thickening on axial images #21 and #22. Consider further evaluation with a gallbladder ultrasound and/or radionuclide hepatobiliary scan. The spleen measures 10.8 cm in craniocaudal dimension on coronal image #57. I believe it is towards the upper limits of normal in size. At least a couple small calcified splenic granulomas are seen. The spleen appears similar as compared to 02/28/2017. Both the pancreas and adrenal glands appear unremarkable. The kidneys reveal no calculi or hydronephrosis. The kidneys are unremarkable size and reveal no gross mass, although assessment is limited on this non-IV contrast study only. The ureters appear of unremarkable diameter and reveal no definite ureterolith. The urinary bladder is only minimally distended. I see no free intraperitoneal air. No ventral abdominal wall hernia is seen. There is a small amount of atherosclerotic vascular calcification within the abdominal aorta as well as a mild amount within the iliac arteries. No abdominal aortic aneurysm or abnormal retroperitoneal lymphadenopathy is seen. The uterus is surgically absent. No enlarged pelvic lymph nodes are seen. No other pelvic mass or free intraperitoneal fluid is seen. There are a few tiny calcified phleboliths within the lower pelvis on each side of midline. The skeleton reveals no acute fractures or other aggressive bone lesion. There is mild degenerative change at the anterior margin of the T11-T12 interspace with a small amount of vacuum disc phenomena and anterior vertebral endplate spurring representing no change. Slight kyphotic deformity is seen at T11-T12 representing no change in retrospect. There is mild facet joint arthropathy at L5-S1 bilaterally and minimal facet joint arthropathy on the right at L4-L5. Impression: 1. The stomach appears dilated with abundant secretions/fluid/food within its lumen. This may be due to gastric atony. Correlate clinically regarding need for further evaluation. Other than some moderate colonic stool retention, the remainder the bowel appears unremarkable. No free air or free fluid is seen. 2. The gallbladder is borderline dilated with a gallbladder width of about 4 cm. There is also a question of mild gallbladder wall thickening. Consider further evaluation with a gallbladder ultrasound and/or radionuclide hepatobiliary scan. 3. The patient is status post hysterectomy. 4. No other acute process is seen within the abdomen or pelvis.
[2018-02-04] MEDS ORDERED: FLUZONE QUAD (36mo-64yo) 2018-2019 SYRINGE IM ONE (10:00)
[2018-02-04] MEDS ORDERED: ESTRADIOL 2 MG PO SCH (10:00)
[2018-02-04] MEDS: SYNTHROID 150 MCG PO SCH (10:27)
[2018-02-04] MEDS: ESTRACE 1 MG PO SCH (10:28)
[2018-02-04] MEDS: Trileptal 300 MG Tablet PO SCH ×2 (10:28→21:49)
[2018-02-04] MEDS: Wellbutrin XL 150 MG PO SCH (10:28)
[2018-02-04] MEDS: Cymbalta 30 MG Capsule PO SCH (10:28)
[2018-02-04] MEDS: MEFOXIN 2 GM** 2 GM in Dextrose 5%/Water IV Soln. 100ML PLUS BAG 100 ML IV SCH ×2 (10:30→10:33)
--- NOTE | 2018-02-04 11:12 | XRAY ---
Exam: Gallbladder ultrasound examination from 02/04/2018. Comparison: CT of the abdomen and pelvis without IV contrast from 02/04/2018. Indication: 52-year-old female with abdominal pain. Technique: Longitudinal and transverse sonogram images were obtained of the right upper quadrant. Findings: The gallbladder reveals multiple echogenic stones within the gallbladder lumen diagnostic of cholelithiasis. Some posterior acoustical shadowing is seen on some of the images. The gallbladder does not appear dilated on the current study. The gallbladder wall thickness 2.8 mm which is normal. The proximal common bile duct measures 6 mm in diameter which is at the upper limits of normal to borderline enlarged. No intrahepatic biliary duct distention is seen. The pancreas is obscured by overlying bowel gas. It appeared grossly unremarkable on the non-IV contrast CT examination of the abdomen and pelvis from earlier today. Color blood flow towards the liver is seen within the main portal vein. The right kidney measures 11.0 cm in length and reveals no gross mass or hydronephrosis. Impression: 1. Fairly extensive cholelithiasis is seen. I do not appreciate any significant gallbladder enlargement or gallbladder wall thickening on the current study. 2. The proximal common bile duct measures 6 mm in diameter which is towards the upper limits of normal to borderline enlarged. No intrahepatic biliary duct distention is seen. 3. The pancreas and is obscured by overlying bowel gas, although this appeared grossly unremarkable on the non-IV contrast CT study from earlier today. 4. The remainder of the right upper quadrant abdominal ultrasound appears unremarkable.
--- NOTE | 2018-02-04 11:49 | CONS ---
CONSULT DATE: 02/04/2018 HISTORY: A 52 year-old female with some intermittent history of some upper abdominal pain radiating to her back, associated with nausea. It has been going on for a while in the past. It was worse yesterday after eating. She came into the emergency room late last night and ended up being admitted. She had CT scan of gallbladder. Preliminary report on the ultrasound was cholelithiasis. Question whether she had symptomatic cholelithiasis, chronic cholecystitis. She denies any recent upper endoscopy. PAST MEDICAL HISTORY: Includes history of some hypothyroidism in the past. She had some anxiety and depression as well. History of shingles in the past. PAST SURGICAL HISTORY: Lumpectomy in the past. Hysterectomy in the past. section in the past. Carpal tunnel in the past. Uterine ablation in the past. FAMILY HISTORY: Negative in regards to this problem. SOCIAL HISTORY: No smoking or alcohol abuse. REVIEW OF SYSTEMS: Twelve systems reviewed per admission assessment. No current chest pain or palpitations. Pertinent for the GI complaints as noted above. No chest pain or shortness of breath. PHYSICAL EXAMINATION: Axillary she has been afebrile. Pulse is 84. Blood pressure 149/79, respiratory rate 16. Pulse ox 98% on room air. GENERAL: No acute distress. HEENT: Sclera nonicteric when she was admitted. NECK: No JVD. CHEST: Equal excursion, nonlabored breathing. CVS: Regular rate and rhythm. ABDOMEN: Soft, some mild tenderness epigastrium. No peritoneal signs. EXTREMITIES: No significant edema. NEURO: Alert, moving extremities grossly symmetrically. LAB DATA AND TESTS: Labs reviewed. Lipase was okay. Liver function test was okay. White blood cell count was normal. Lactic acid normal. White blood cell count 6.6, hemoglobin 12.6, PLT 250,000. IMPRESSION: Acute upper abdominal pain. She had abnormal CT and ultrasound consistent with possible acute exacerbation of chronic cholecystitis and possible cholecystitis. I feel she would benefit from laparoscopic cholecystectomy possible open. Risks and benefits explained in detail but not limited to bleeding or infection, risk of trocar injury or hernia, small risk bowel, bladder or blood vessel injury, small risk of bile leak, bile duct injury, retained stone or sludge possibly requiring further procedure either open or ERCP, general risk of anesthesia, deep venous thrombosis, pulmonary embolism or pneumonia. Perioperative risk of aches, pains, bloating, constipation and/or loose stools possibly chronic in nature. She also understands possibility this procedure may not improve her symptoms that she may need further work up and/or testing, endoscopy, other studies or procedures. She understands and agrees to the planned procedure, will proceed with laparoscopic cholecystectomy possible open when OR time available later today. This patient is seen for Dr. Cota who was radiation oncology nurse for our group today when the consult came in. As he is tied up in [place] I will proceed with laparoscopic cholecystectomy possible open when OR time available.
[2018-02-04] MEDS ORDERED: Sensorcaine 0.25% 10 ML ONE (13:17)
[2018-02-04] MEDS ORDERED: SUBLIMAZE 100 MCG/2 ML ONE ×2 (14:28→14:52)
[2018-02-04] MEDS ORDERED: TORAdol 30 mg Injection ONE (14:42)
[2018-02-04] MEDS ORDERED: TRANDATE 100 MG/20 ML MDV FOR DRIP IV ONE (14:45)
--- NOTE | 2018-02-04 14:45 | OP ---
SURGERY DATE/TIME: 02/04/2018 1325 PREOPERATIVE DIAGNOSIS: Symptomatic cholelithiasis, chronic cholecystitis. POSTOPERATIVE DIAGNOSIS: Symptomatic cholelithiasis, chronic cholecystitis. PROCEDURE: Laparoscopic cholecystectomy. SURGEON: Dr. Anselmo Quigley. ANESTHESIA: General. ESTIMATED BLOOD LOSS: Minimal. INDICATIONS: As noted above. Risks and benefits explained in detail but not limited to and consent obtained. DESCRIPTION OF PROCEDURE AND FINDINGS: The patient was taken to the OR. General anesthesia induced. Abdomen prepped and draped in the usual sterile fashion. After official time out and no disagreement with planned procedure, a transverse incision made. She had some scarring whether from previous surgery or piercing in supraumbilical area going up above the clean area, a transverse incision made. Fascia grasped and pulled upward. Veress needle inserted and tested with saline. Pneumoperitoneum accomplished insufflating opening pressure of 0-15. An 11 mm bladeless port and camera inserted without difficulty followed by two - 5 mm right upper quadrant ports and 5 mm epigastric portion under direct vision of the camera. The gallbladder grasped and retracted over the edge of the liver. It had some chronic inflammatory reaction. Dissection carried posterior, lateral to anterior fashion. Slowly and carefully cystic duct and infundibular junction as well the main cystic artery was isolated until critical view obtained both anteriorly and posteriorly. Once this was accomplished cystic duct and cystic artery clipped x3 and divided in usual fashion. The gallbladder slowly and carefully dissected free from its dense almost concrete attachments to the liver bed staying directly on the gallbladder wall clipping additional oozing side branches off the cystic artery directly on the gallbladder wall as necessary. Just prior to releasing from final attachments to the anterior edge of the liver the liver bed re-inspected. Clips noted to be in place in cystic duct and cystic artery stumps. There is no sign of any active bleeding or bile leakage. It was felt there is no benefit from drain placement. Gallbladder released from final attachments to the anterior edge of the liver placed in Pleatman sac and pulled out through 11 port site at the supraumbilical area and passed off. This fascial defect closed with puncture closure device with #1 Vicryl. Liver bed re-inspected. Clips noted in place in cystic duct and cystic artery stumps. There were no signs of any active bleeding or bile leakage. It was felt there is no benefit from drain placement. Copious amount of irrigation accomplished lateral to the liver and subhepatic space irrigating until clear. At this point pneumoperitoneum decompressed. The wound was irrigated out. Skin incision closed with 4-0 Vicryl. Steri-Strips and sterile dressing applied. 0.25% Marcaine local injected along the skin incision fascial defect. The patient tolerated the procedure well. There were no immediate complications. Findings discussed with the family out in the waiting area. She was transferred to the recovery room in stable condition.
[2018-02-04] MEDS ORDERED: Lactated Ringers 0 ML IV ONE (15:14)
[2018-02-04] MEDS: SUBLIMAZE 100 MCG/2 ML IV PRN ×2 (16:36→21:09)
[2018-02-05] MEDS: Unasyn 3GM / NaCl 100ML 3 GM/100 ML IVPB IV SCH ×2 (00:17→06:06)
[2018-02-05] MEDS: SUBLIMAZE 100 MCG/2 ML IV PRN (00:23)
[2018-02-05] MEDS: NORCO 5/325 MG PO PRN ×2 (04:28→09:15)
[2018-02-05 05:43] LABS: BASOPHIL % 0.1 % (0.0-0.4); Basophil (Absolute #) 0.01 (0-0.4); Eosinophil % 1.2 % (0.00-5.0); Granulocyte Absolute (ANC) 6.85 (1.4-6.9); Granulocytes % 83.6 % (36.0-66.0); Hematocrit 36.5 % (35-47); Lymphocyte (Absolute #) 0.81 (1.0-4.6); Lymphocytes % 9.9 % (24.0-44.0); Mean Cell Volume 88.6 fl (78-100); Mean Corpuscular Hemoglobin 29.1 pg (26-32); Mean Corpuscular Hgb Concent. 32.9 g/dl (32-36); Mean Platelet Volume 8.8 fl (6-9.5); Monocyte (Absolute #) 0.43 (0.0-1.3); Monocytes % 5.2 % (0.0-12.0); Platelet Count 196 K/mm3 (150-450); Red Blood Count 4.12 M/mm3 (4.1-5.4); Red Cell Distribution Width 12.9 % (11.5-14.0); White Blood Count 8.2 K/mm3 (4.0-10.5)
[2018-02-05 06:13] LABS: ALBUMIN 3.6 g/dL (3.5-5.0); ALKALINE PHOSPHATASE 128 U/L (38-126); ANION GAP 8.6 MEQ/L (5-15); BLOOD UREA NITROGEN 13 mg/dL (7-17); CHLORIDE 99 mmol/L (98-107); Calcium 8.8 mg/dL (8.4-10.2); Carbon Dioxide 32 mmol/L (22-30); Glucose 105 mg/dL (74-106); Potassium 4.5 mmol/L (3.5-5.1); SGOT/AST 34 U/L (14-36); SGPT/ALT 17 U/L (0-35); SODIUM 135 mmol/L (137-145); Total Protein 6.2 g/dL (6.3-8.2)
[2018-02-05 07:32] VITALS: BP 142/81; PULSE 92; O2SAT 97
--- NOTE | 2018-02-05 08:50 | PCM.DS ---
Discharge Summary Date of Admission: 02/04/18 02:18 Admitting Physician: DAHIANA DIAZ Consults: Consults on Case 02/04/18 01:23 Consult Surgery ROUTINE Primary Care Provider: DAHIANA DIAZ Allergies Allergies shrimp Allergy (Severe, Verified 02/04/18 02:58) Swelling of Tongue and Lips morphine Adverse Reaction (Mild, Verified 02/04/18 02:58) ITCH Hospital Summary - Hospital Course Hospital Course: Pt is 52 yo female pt of mine from [facility] who was admitted through ER with abdominal pain. CT with some GB wall thickening; u/s showed cholelithiasis. Dr. Burns removed the patient's gallbladder laparoscopically, thank you. She is eating now and c/o abd soreness but no antoni pain. Urinating well. During surgery there was some concern about her breathing; she has failed a sleep study but it was years ago. She will get a sleep study outpatient. Her BP has been elevated in the 160s so I am starting her on po amlodipine 5mg/d. F/u with surgery as ordered and with me in 2 weeks. - Vitals & Intake/Output Vital Signs: Vital Signs Temperature 99.2 F 02/05/18 07:31 Pulse Rate 92 H 02/05/18 07:31 Respiratory Rate 18 02/05/18 07:31 Blood Pressure 142/81 02/05/18 07:31 O2 Sat by Pulse Oximetry 97 02/05/18 07:31 Oxygen-Last Documented O2 Percentage 2 Liters = 28% Intake & Output: Intake & Output 02/02/18 02/03/18 02/04/18 02/05/18 11:59 11:59 11:59 11:59 Intake Total 164 2573 Output Total 250 2600 Balance -86 -27 Weight 88 kg - Lab Result Diagrams: 02/05/18 05:33 02/05/18 05:33 Lab Results-Last 24 Hrs: Lab Results-Last 24 Hours 02/04/18 02/04/18 02/04/18 Range/Units 06:36 09:33 12:44 WBC (4.0-10.5) K/mm3 RBC (4.1-5.4) M/mm3 Hgb (12.0-16.0) gm/dl Hct (35-47) % MCV (78-100) fl MCH (26-32) pg MCHC (32-36) g/dl RDW (11.5-14.0) % Plt Count (150-450) K/mm3 MPV (6-9.5) fl Gran % (36.0-66.0) % Eos # (Auto) (0-0.5) Absolute Lymphs (auto) (1.0-4.6) Absolute Monos (auto) (0.0-1.3) Lymphocytes % (24.0-44.0) % Monocytes % (0.0-12.0) % Eosinophils % (0.00-5.0) % Basophils % (0.0-0.4) % Absolute Granulocytes (1.4-6.9) Basophils # (0-0.4) Sodium (137-145) mmol/L Potassium (3.5-5.1) mmol/L Chloride (98-107) mmol/L Carbon Dioxide (22-30) mmol/L Anion Gap (5-15) MEQ/L BUN (7-17) mg/dL Creatinine (0.52-1.04) mg/dL Estimated GFR ML/MIN Glucose (74-106) mg/dL Calcium (8.4-10.2) mg/dL Total Bilirubin (0.2-1.3) mg/dL Direct Bilirubin 0.1 (0.0-0.4) mg/dL AST (14-36) U/L ALT (0-35) U/L Alkaline Phosphatase (38-126) U/L Troponin I < 0.012 < 0.012 (0.000-0.034) ng/mL Serum Total Protein (6.3-8.2) g/dL Albumin (3.5-5.0) g/dL 02/05/18 02/05/18 Range/Units 05:33 05:33 WBC 8.2 (4.0-10.5) K/mm3 RBC 4.12 (4.1-5.4) M/mm3 Hgb 12.0 (12.0-16.0) gm/dl Hct 36.5 (35-47) % MCV 88.6 (78-100) fl MCH 29.1 (26-32) pg MCHC 32.9 (32-36) g/dl RDW 12.9 (11.5-14.0) % Plt Count 196 (150-450) K/mm3 MPV 8.8 (6-9.5) fl Gran % 83.6 H (36.0-66.0) % Eos # (Auto) 0.10 (0-0.5) Absolute Lymphs (auto) 0.81 L (1.0-4.6) Absolute Monos (auto) 0.43 (0.0-1.3) Lymphocytes % 9.9 L (24.0-44.0) % Monocytes % 5.2 (0.0-12.0) % Eosinophils % 1.2 (0.00-5.0) % Basophils % 0.1 (0.0-0.4) % Absolute Granulocytes 6.85 (1.4-6.9) Basophils # 0.01 (0-0.4) Sodium 135 L (137-145) mmol/L Potassium 4.5 (3.5-5.1) mmol/L Chloride 99 (98-107) mmol/L Carbon Dioxide 32 H (22-30) mmol/L Anion Gap 8.6 (5-15) MEQ/L BUN 13 (7-17) mg/dL Creatinine 0.80 (0.52-1.04) mg/dL Estimated GFR > 60.0 ML/MIN Glucose 105 (74-106) mg/dL Calcium 8.8 (8.4-10.2) mg/dL Total Bilirubin 0.30 (0.2-1.3) mg/dL Direct Bilirubin (0.0-0.4) mg/dL AST 34 (14-36) U/L ALT 17 (0-35) U/L Alkaline Phosphatase 128 H (38-126) U/L Troponin I (0.000-0.034) ng/mL Serum Total Protein 6.2 L (6.3-8.2) g/dL Albumin 3.6 (3.5-5.0) g/dL - Radiology Exams Ordered Rad Exams-Entire Visit: Radiology Procedures Category Date Time Status ABDOMEN AND PELVIS W/0 CONTRAS [CT] Stat Exams 02/04/18 00:26 Completed GALLBLADDER [US] Urgent Exams 02/04/18 10:00 Completed Discharge Exam General Appearance: no apparent distress, alert, obese Neurologic Exam: oriented x 3, cooperative Skin Exam: normal color, warm, dry, No rash Respiratory Exam: normal breath sounds, lungs clear, No crackles/rales, No rhonchi, No wheezing Cardiovascular Exam: regular rate/rhythm, normal heart sounds, No murmur Gastrointestinal/Abdomen Exam: soft, other (wounds c/d/i), No normal bowel sounds (hypoactive but present), No distention, No guarding, No rebound Extremity Exam: No pedal edema, No swelling Back Exam: normal inspection, No rash Final Diagnosis/Problem List - Final Discharge Diagnosis/Problem (1) S/P cholecystectomy Current Visit: Yes Status: Acute Assessment & Plan: Doing well - d/c home today. (2) Renal insufficiency Current Visit: No Status: Resolved Assessment & Plan: resolved today. - Discharge Disposition: Home, Self-Care Condition: Good Prescriptions: New Amlodipine Besylate 5 mg [Norvasc 5 mg] 5 mg PO QAM #30 tablet Continue Estradiol [Estrace] 2 mg PO DAILY Oxcarbazepine 300 mg [Trileptal 300 MG Tablet] 300 mg PO BID Levothyroxine Sodium 150 Mcg [Synthroid 150 Mcg] 150 mcg PO DAILY Bupropion HCl Xl 150 mg [Wellbutrin XL 150 MG] 150 mg PO DAILY Duloxetine HCl 30 mg [Cymbalta 30 MG Capsule] 30 mg PO DAILY Follow up with: ASTRID BROWNLEE [COURTESY STAFF] - 02/18/18 9:55 am ([facility] [place] [facility] [place]
[2018-02-05] MEDS ORDERED: FLUZONE QUAD (36mo-64yo) 2018-2019 SYRINGE IM ONE (09:00)
[2018-02-05] MEDS: ESTRACE 1 MG PO SCH (09:09)
[2018-02-05] MEDS: Wellbutrin XL 150 MG PO SCH (09:09)
[2018-02-05] MEDS: SYNTHROID 150 MCG PO SCH (09:10)
[2018-02-05] MEDS: Cymbalta 30 MG Capsule PO SCH (09:10)
[2018-02-05] MEDS: Trileptal 300 MG Tablet PO SCH (09:10)
[2018-02-05] MEDS ORDERED: Versed 2 MG/2 ML Injection IV ONE (09:44)
[2018-02-05] MEDS ORDERED: SUBLIMAZE 250 MCG/5 ML IJ ONE (09:44)
[2018-02-05] MEDS ORDERED: NORVASC 5 MG PO SCH (10:00)
== END 2018-02-05 09:45 | disposition home or self-care (01) ==
LOC: ED 23:57 → MED SURG 02-04 02:18
PROVIDERS: ADMIT Family Medicine; ATTEND Family Medicine
DX: K80.10 Calculus of gallbladder with chronic cholecystitis without obstruction (principal); E03.9 Hypothyroidism, unspecified; F41.9 Anxiety disorder, unspecified; F32.9 Major depressive disorder, single episode, unspecified; G47.33 Obstructive sleep apnea (adult) (pediatric); G50.0 Trigeminal neuralgia
CPT/HCPCS: 36000; 36415; 47562; 74176; 76705; 80053; 80307; 81001; 82248; 83605; 83690; 84484; 85025; 93005; 96360; 96374; 96375; 99285; G0378; 88304; 90686; G0008; J0295; J0694; J1170; J1885; J2250; J2550; J2704; J3010; A9270-GY

== ENCOUNTER 2018-08-31 01:57 | Emergency (ER) | payer BC ==
[2018-08-31 03:41] VITALS: O2SAT 96
[2018-08-31] MEDS ORDERED: Hydromorphone 1 mg/ml Ampule IV ONE (03:41)
[2018-08-31] MEDS ORDERED: Zofran 4 MG/2 ML VIAL IV ONE (03:41)
--- NOTE | 2018-08-31 03:41 | ERPHSYRPT ---
- History of Present Illness Time Seen by Provider: 08/31/18 03:35 Source: patient Exam Limitations: clinical condition Physician History: PATIENT WITH A HISTORY OF FACIAL AND SCALP NEURALGIA DUE TO SHINGLES, CHRONIC HEADACHES FOR 5 YEARS COMPLAINS OF A PERSISTENT HEADACHE FOR 4 DAYS ASSOCIATED WITH PHOTOPHOBIA,AND NAUSEA. DENIES FEVER, OR NECK STIFFNESS. Timing/Duration: day(s) Quality: throbbing Head Pain Location: global Severity of Pain-Max: severe Severity of Pain-Current: severe Recent Head Trauma: no recent headache/trauma Modifying Factors: Improves With: exposure to light Associated Symptoms: facial pain, sensitive to light Previous symptoms: same symptoms as today Allergies/Adverse Reactions: shrimp Allergy (Severe, Verified 08/31/18 03:59) Swelling of Tongue and Lips morphine Adverse Reaction (Mild, Verified 08/31/18 03:59) ITCH Home Medications: Estradiol [Estrace] 2 mg PO DAILY 07/20/15 [History] Levothyroxine Sodium 150 Mcg [Synthroid 150 Mcg] 200 mcg PO DAILY 07/20/15 [History] Oxcarbazepine 300 mg [Trileptal 300 MG Tablet] 300 mg PO DAILY 07/20/15 [ History] Duloxetine HCl 30 mg [Cymbalta 30 MG Capsule] 60 mg PO DAILY 10/04/17 [ History] Hx Tetanus, Diphtheria Vaccination/Date Given: Yes Hx Influenza Vaccination/Date Given: No Hx Pneumococcal Vaccination/Date Given: No - Review of Systems Constitutional: No Fever, No Chills Eyes: No Symptoms Ears, Nose, & Throat: No Symptoms Respiratory: No Symptoms, No Cough, No Dyspnea Cardiac: No Symptoms, No Chest Pain, No Edema, No Syncope Abdominal/Gastrointestinal: No Symptoms, No Abdominal Pain, No Nausea, No Vomiting, No Diarrhea Genitourinary Symptoms: No Symptoms, No Dysuria Musculoskeletal: No Symptoms, No Back Pain, No Neck Pain Skin: No Rash Neurological: Headache, No Dizziness, No Focal Weakness, No Sensory Changes Psychological: No Symptoms Endocrine: No Symptoms All Other Systems: Reviewed and Negative - Past Medical History Pertinent Past Medical History: Yes Neurological History: Other ENT History: No Pertinent History Cardiac History: No Pertinent History Respiratory History: Sleep Apnea Endocrine Medical History: Hypothyroidism Musculoskeletal History: No Pertinent History GI Medical History: Ulcer History: No Pertinent History Psycho-Social History: No Pertinent History Female Reproductive Disorders: Other Other Medical History: N/T into medial side of R foot, gallbladder removal surgery - Past Surgical History Past Surgical History: Yes Neuro Surgical History: No Pertinent History Cardiac: No Pertinent History Respiratory: No Pertinent History Gastrointestinal: No Pertinent History Genitourinary: No Pertinent History Musculoskeletal: Other Female Surgical History: Section, Hysterectomy, Lumpectomy Other Surgical History: carpal tunnel- bilateral. uterine ablation - Social History Smoking Status: Never smoker Exposure to second hand smoke: No Drug Use: none Patient Lives Alone: No Significant Family History: no pertinent family hx - Nursing Vital Signs Nursing Vital Signs: Initial Vital Signs Temperature 97.5 F 08/31/18 03:36 Pulse Rate 79 08/31/18 03:36 Respiratory Rate 18 08/31/18 03:36 Blood Pressure 148/97 08/31/18 03:36 O2 Sat by Pulse Oximetry 96 08/31/18 03:36 Pain Scale Pain Intensity 5 - Physical Exam General Appearance: mild distress Eye Exam: PERRL/EOMI Ears, Nose, Throat Exam: normal ENT inspection Neck Exam: normal inspection, non-tender Respiratory Exam: normal breath sounds Cardiovascular Exam: regular rate/rhythm Back Exam: normal inspection, normal range of motion Extremity Exam: normal inspection Mental Status Exam: 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, 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 Exam: normal hearing, normal speech Coordination/Gait Exam: normal finger to nose, positive Romberg's sign Motor/Sensory Exam: no motor deficit, no sensory deficit DTR Exam: bicep (R): 2+, bicep (L): 2+, tricep (R): 2+, tricep (L): 2+, knee (R) : 2+, knee (L): 2+, ankle (R): 2+, ankle (L): 2+ Skin Exam: normal color SpO2 Interpretation: normal SpO2: 96 - CT Exams Head CT Interpretation: Tele-radiologist Report, No/Intracranial Hemorrhag Ordered Tests: Active Orders 24 hr Category Date Time Status HEAD WITHOUT CONTRAST [CT] Stat Exams 08/31/18 03:42 Taken Medication Summary Generic Name Dose Route Start Last Admin Trade Name Freq PRN Reason Stop Dose Admin Sodium Chloride 1,000 mls @ 200 mls/hr 08/31/18 03:45 08/31/18 04:16 Sodium Chloride 0.9% 1000 Ml IV 09/30/18 03:44 200 mls/hr .Q5H REGINA Administration Discontinued Medications Generic Name Dose Route Start Last Admin Trade Name Guillermina PRN Reason Stop Dose Admin Fentanyl Citrate 100 mcg 08/31/18 05:46 08/31/18 05:52 Sublimaze 100 Mcg/2 Ml IV 08/31/18 05:47 100 mcg STAT ONE Administration Fentanyl Citrate Confirm 08/31/18 05:50 Sublimaze 100 Mcg/2 Ml Administered 08/31/18 05:51 Dose 100 mcg .ROUTE .STK-MED ONE Hydromorphone HCl 1 mg 08/31/18 03:41 08/31/18 04:17 Hydromorphone 1 Mg/Ml Ampule IV 08/31/18 03:42 1 mg STAT ONE Administration Hydromorphone HCl Confirm 08/31/18 04:13 Hydromorphone 1 Mg/Ml Ampule Administered 08/31/18 04:14 Dose 1 mg .ROUTE .STK-MED ONE Ketorolac Tromethamine 30 mg 08/31/18 05:31 08/31/18 05:36 Toradol 30 Mg Injection IV 08/31/18 05:32 30 mg STAT ONE Administration Ketorolac Tromethamine Confirm 08/31/18 05:32 Toradol 30 Mg Injection Administered 08/31/18 05:33 Dose 30 mg .ROUTE .STK-MED ONE Ondansetron HCl 4 mg 08/31/18 03:41 08/31/18 04:17 Zofran 4 Mg/2 Ml Vial IV 08/31/18 03:42 4 mg STAT ONE Administration Ondansetron HCl Confirm 08/31/18 04:12 Zofran 4 Mg/2 Ml Vial Administered 08/31/18 04:13 Dose 4 mg .ROUTE .STK-MED ONE - Progress Progress Note: 08/31/18 03:40 IV NORMAL SALINE 100ML/HR, ZOFRAN 4MG, DILAUDID 1MG IV, TORADOL 30MG, FENTANYL 100MCG IV, MARKED RELIEF OF PAIN. 08/31/18 06:29 Counseled pt/family regarding: diagnosis, rad results - Departure Departure Disposition: Home Clinical Impression: ACUTE CEPHALGIA Condition: Stable Critical Care Time: No Referrals: DAHIANA DIAZ [Primary Care Provider] - Additional Instructions: FIORINAL WITH CODEINE EVERY 6 HOURS NEEDED FOR PAIN. CONSULT YOUR PRIMARY CARE PROVIDER FOR EVALUATION IN 4-5 DAYS. RETURN TO EMERGENCY ROOM FOR INCREASING PAIN. Prescriptions: Codeine/Butalbital/ASA/Caffein [Fiorinal-Cod [id number] Cap] 1 each PO Q6H PRN PRN #10 capsule PRN Reason: Headache
[2018-08-31] MEDS ORDERED: Sodium Chloride 0.9% 1000 ML 1,000 ML IV SCH (03:45)
[2018-08-31] MEDS ORDERED: Zofran 4 MG/2 ML VIAL ONE (04:12)
[2018-08-31] MEDS ORDERED: Sodium Chloride 0.9% 1000 ML 1,000 ML ONE (04:13)
[2018-08-31] MEDS ORDERED: Hydromorphone 1 mg/ml Ampule ONE (04:13)
[2018-08-31] MEDS ORDERED: TORAdol 30 mg Injection IV ONE (05:31)
[2018-08-31] MEDS ORDERED: TORAdol 30 mg Injection ONE (05:32)
[2018-08-31] MEDS ORDERED: SUBLIMAZE 100 MCG/2 ML IV ONE (05:46)
[2018-08-31] MEDS ORDERED: SUBLIMAZE 100 MCG/2 ML ONE (05:50)
[2018-08-31 07:08] VITALS: BP 147/82; PULSE 70
--- NOTE | 2018-08-31 08:27 | XRAY ---
Indication: Headache, nausea, and photophobia. Multiple contiguous axial images obtained through the head without contrast. Comparison: November 05, 2011. Again normal appearing brain parenchyma, ventricles, and bony calvarium. Visualized paranasal sinuses and mastoid air cells are clear. Impression: Stable normal CT head without contrast exam. Comment: Preliminary interpretation was made by [facility]. No discrepancy. CTDI 68.98
== END 2018-08-31 07:17 | disposition home or self-care (01) ==
LOC: ED 01:57
DX: R51 Headache (principal)
CPT/HCPCS: 70450; 96360; 96361; 96374; 96375; 99284; J1170; J1885; J2405; J3010

== ENCOUNTER 2018-11-21 19:58 | Emergency (ER) | payer BC ==
[2018-11-21] MEDS ORDERED: NORCO 5/325 MG PO ONE ×2 (22:11→23:16)
--- NOTE | 2018-11-21 22:14 | ERPHSYRPT ---
- History of Present Illness Time Seen by Provider: 11/21/18 22:07 Source: patient Exam Limitations: no limitations Patient Subjective Stated Complaint: pt states, "I was mowing the yard and went to get off the mower, tripped and fell over a bungee cord and tried to catch myself, landing on my right wrist". Triage Nursing Assessment: pt alert and oriented, c/o pain to rt wrist, rt hand and rt forearm from fall. Slight edema noted to rt forearm, ice pack in place. Lungs clear, heart tones reg, abd soft with active bs x4 quad, non-tender. Rates pain to rt wrist a 6 on 0-10 scale. Physician History: 53-year-old white female arrives with complaint of pain in her right hand and wrist symptoms for 3 or 4:00 this afternoon she states she was mowing her lawn tripped and fell injuring her right hand and wrist she has pain in her right wrist and right hand she has decreased range of motion arrives wrist secondary to pain she also has pain with movement of her right hand located in the proximal hand. Past medical history includes hypothyroidism, pneumonia, sleep apnea, gallbladder disease, ulcers, Past surgical history includes tonsillectomy, , hysterectomy, lumpectomy, carpal tunnel, uterine ablation Occurred: this afternoon (3 or 4:00 this afternoon) Method of Injury: fell Quality: constant Severity of Pain-Max: moderate Severity of Pain-Current: moderate Extremities Pain Location: wrist: right, thumb: right Modifying Factors: Improves With: movement Associated Symptoms: none Allergies/Adverse Reactions: shrimp Allergy (Severe, Verified 08/31/18 03:59) Swelling of Tongue and Lips morphine Adverse Reaction (Mild, Verified 08/31/18 03:59) ITCH Home Medications: Estradiol [Estrace] 2 mg PO DAILY 07/20/15 [History] Oxcarbazepine 300 mg [Trileptal 300 MG Tablet] 300 mg PO DAILY 07/20/15 [ History] Hx Tetanus, Diphtheria Vaccination/Date Given: Yes Hx Influenza Vaccination/Date Given: No Hx Pneumococcal Vaccination/Date Given: No Immunizations Up to Date: Yes - Review of Systems Constitutional: No Fever, No Chills Eyes: No Symptoms Ears, Nose, & Throat: No Symptoms Respiratory: No Cough, No Dyspnea Cardiac: No Chest Pain, No Edema, No Syncope Abdominal/Gastrointestinal: No Abdominal Pain, No Nausea, No Vomiting, No Diarrhea Genitourinary Symptoms: No Dysuria Musculoskeletal: Other (right hand and wrist pain) Skin: No Rash Neurological: No Dizziness, No Focal Weakness, No Sensory Changes Psychological: No Symptoms Endocrine: No Symptoms All Other Systems: Reviewed and Negative - Past Medical History Pertinent Past Medical History: Yes Neurological History: Other ENT History: No Pertinent History Cardiac History: No Pertinent History Respiratory History: Pneumonia, Sleep Apnea Endocrine Medical History: Hypothyroidism Musculoskeletal History: No Pertinent History GI Medical History: Gallbladder Disease, Ulcer History: No Pertinent History Psycho-Social History: No Pertinent History Female Reproductive Disorders: Other Other Medical History: N/T into medial side of R foot - Past Surgical History Past Surgical History: Yes Neuro Surgical History: No Pertinent History Cardiac: No Pertinent History Respiratory: No Pertinent History Gastrointestinal: Cholecystectomy Genitourinary: No Pertinent History Musculoskeletal: Other Female Surgical History: Section, Hysterectomy, Lumpectomy Other Surgical History: carpal tunnel- bilateral. uterine ablation - Social History Smoking Status: Never smoker Exposure to second hand smoke: No Drug Use: none Patient Lives Alone: No Significant Family History: no pertinent family hx - Female History Hx Now: No - Nursing Vital Signs Nursing Vital Signs: Initial Vital Signs Temperature 98.4 F 11/21/18 19:58 Pulse Rate 96 H 11/21/18 19:58 Respiratory Rate 18 11/21/18 19:58 Blood Pressure 163/94 11/21/18 19:58 O2 Sat by Pulse Oximetry 97 11/21/18 19:58 Pain Scale Pain Intensity 7 - Physical Exam SpO2: 97 - Course Nursing assessment & vital signs reviewed: Yes - Radiology Exams Right Hand X-ray Interpretation: Interpreted by me (x-ray right hand no fracture, no subluxation) Right Wrist X-ray Interpretation: Interpreted by me (X-ray right wrist no fracture no subluxation) Ordered Tests: Active Orders 24 hr Category Date Time Status Splint STAT Care 11/21/18 23:15 Active HAND (MINIMUM 3 VIEWS) Stat Exams 11/21/18 22:11 Taken WRIST (MIN 3 VIEWS) Stat Exams 11/21/18 22:11 Taken Medication Summary Discontinued Medications Generic Name Dose Route Start Last Admin Trade Name Freq PRN Reason Stop Dose Admin Hydrocodone Bitart/Acetaminophen 1 tab 11/21/18 22:11 11/21/18 22:17 [place] 5/325 Mg PO 11/21/18 22:12 1 tab STAT ONE Administration Hydrocodone Bitart/Acetaminophen Confirm 11/21/18 22:16 [place] 5/325 Mg Administered 11/21/18 22:17 Dose 1 tab .ROUTE .STK-MED ONE Hydrocodone Bitart/Acetaminophen 2 tab 11/21/18 23:16 11/21/18 23:43 [place] 5/325 Mg PO 11/21/18 23:17 2 tab SENT HOME W/ PATIENT ONE Administration Hydrocodone Bitart/Acetaminophen Confirm 11/21/18 23:42 [place] 5/325 Mg Administered 11/21/18 23:43 Dose 2 tab .ROUTE .STK-MED ONE - Progress Progress: improved Progress Note: 11/21/18 23:11 Patient improved but still with pain right hand and wrist after receiving [place]. X-ray right hand and wrist no fracture no subluxation (my read). Will go ahead and place right wristlet. Will write for [place] for pain patient denies problem with narcotics and states she is not on any narcotics at this time. - Departure Departure Disposition: Home Clinical Impression: Right hand pain Accidental fall Qualifiers: Encounter type: initial encounter Qualified Code(s): W19.XXXA - Unspecified fall, initial encounter Right wrist sprain Qualifiers: Encounter type: initial encounter Qualified Code(s): S63.501A - Unspecified sprain of right wrist, initial encounter Condition: Fair Critical Care Time: No Referrals: DAHIANA DIAZ [Primary Care Provider] - Additional Instructions: Return home. Ice and elevate right hand and wrist 24-48 hours. Wear wristlet 48-72 hours longer if pain persists. [place] as prescribed. Followup with your family Dr. if symptoms are worse, no better in 48 hours to 72 hours or persist longer than one week. Return for acute distress or for severe symptoms Prescriptions: Hydrocodone/APAP 5-325 Tab^^^ [[place] 5-325 Tablet^^^] 1 tab PO Q6HPRN PRN #10 tablet MDD 6 PRN Reason: right wrist and hand pain
[2018-11-21] MEDS ORDERED: NORCO 5/325 MG ONE ×2 (22:16→23:42)
[2018-11-22 00:07] VITALS: BP 154/82; PULSE 77; O2SAT 95
--- NOTE | 2018-11-22 09:29 | XRAY ---
Indication: Pain following fall. Comparison: None 3 views of the right wrist demonstrates posterior carpal ossification without obvious donor site. Cortical fracture is of primary concern. No other bony, articular, or soft tissue abnormalities. Comment: Ossification not reported by preliminary interpreting ER clinician. Telephone report given to Dr. Tineo in the ER at 0925 hrs. on November 22, 2018.
--- NOTE | 2018-11-22 09:29 | XRAY ---
Indication: Pain following fall. Comparison: None 3 views of the right hand demonstrates tiny posterior wrist ossification without obvious donor site. Cortical fracture is of primary concern. No other bony, articular, or soft tissue abnormalities. Comment: Ossification not reported by preliminary interpreting ER clinician. Telephone report given to Dr. Tineo in the ER at 0925 hrs. on November 22, 2018.
== END 2018-11-21 23:58 | disposition home or self-care (01) ==
LOC: ED 19:58
DX: S62.101A Fracture of unspecified carpal bone, right wrist, initial encounter for closed fracture (principal); S63.501A Unspecified sprain of right wrist, initial encounter; M25.531 Pain in right wrist; M79.641 Pain in right hand; W01.198A Fall on same level from slipping, tripping and stumbling with subsequent striking against other object, initial encounter; Y93.H9 Activity, other involving exterior property and land maintenance, building and construction; Y92.096 Garden or yard of other non-institutional residence as the place of occurrence of the external cause
CPT/HCPCS: 73110; 73130; 99284; L3908; A9270-GY

== ENCOUNTER 2019-04-20 10:13 | Emergency (ER) | payer BC ==
[2019-04-20] MEDS ORDERED: Sodium Chloride 0.9% 1000 ML 1,000 ML IV STA ×2 (10:42→11:41)
[2019-04-20] MEDS ORDERED: Zofran 4 MG/2 ML VIAL IV ONE (10:42)
--- NOTE | 2019-04-20 10:49 | ERPHSYRPT ---
- History of Present Illness Time Seen by Provider: 04/20/19 10:48 Source: patient Exam Limitations: no limitations Patient Subjective Stated Complaint: Pt c/o of N&V, diarrhea since , last vomiting was Sunday Triage Nursing Assessment: Pt walked into the ER, hypertensive, pulses normal, bowel sounds heard in all 4, afebrile, decreased fluid intake, having trouble urinating Physician History: Pt c/o of N&V, diarrhea since , last vomiting was Sunday, no fever or chills Timing/Duration: day(s) (2 days) Severity: moderate Associated Symptoms: nausea, vomiting Allergies/Adverse Reactions: shrimp Allergy (Severe, Verified 04/20/19 10:26) Swelling of Tongue and Lips morphine Adverse Reaction (Mild, Verified 04/20/19 10:26) ITCH Home Medications: Estradiol [Estrace] 2 mg PO DAILY 07/20/15 [History] Oxcarbazepine 300 mg [Trileptal 300 MG Tablet] 300 mg PO DAILY 07/20/15 [ History] Amlodipine Besylate 5 mg [Norvasc 5 mg] 5 mg PO DAILY 04/20/19 [History] Duloxetine HCl [Cymbalta] 60 mg PO DAILY 04/20/19 [History] Levothyroxine Sodium [Tirosint] 150 mg PO DAILY 04/20/19 [History] Prasterone (Dhea) [Intrarosa] 6.5 mg VG UD 04/20/19 [History] Hx Tetanus, Diphtheria Vaccination/Date Given: Yes Hx Influenza Vaccination/Date Given: No Hx Pneumococcal Vaccination/Date Given: No - Review of Systems Constitutional: No Fever, No Chills Eyes: No Symptoms Ears, Nose, & Throat: No Symptoms Respiratory: No Cough, No Dyspnea Cardiac: No Chest Pain, No Edema, No Syncope Abdominal/Gastrointestinal: Nausea, Vomiting, Diarrhea, No Abdominal Pain Genitourinary Symptoms: No Dysuria Musculoskeletal: No Back Pain, No Neck Pain Skin: No Rash Neurological: No Dizziness, No Focal Weakness, No Sensory Changes Psychological: No Symptoms Endocrine: No Symptoms All Other Systems: Reviewed and Negative - Past Medical History Pertinent Past Medical History: Yes Neurological History: Other ENT History: No Pertinent History Cardiac History: No Pertinent History Respiratory History: Pneumonia, Sleep Apnea Endocrine Medical History: Hypothyroidism Musculoskeletal History: No Pertinent History GI Medical History: Gallbladder Disease, Ulcer History: No Pertinent History Psycho-Social History: No Pertinent History Female Reproductive Disorders: Other Other Medical History: N/T into medial side of R foot - Past Surgical History Past Surgical History: Yes Neuro Surgical History: No Pertinent History Cardiac: No Pertinent History Respiratory: No Pertinent History Gastrointestinal: Cholecystectomy Genitourinary: No Pertinent History Musculoskeletal: Other Female Surgical History: Section, Hysterectomy, Lumpectomy Other Surgical History: carpal tunnel- bilateral. uterine ablation - Social History Smoking Status: Never smoker Exposure to second hand smoke: No Drug Use: none Patient Lives Alone: No Significant Family History: no pertinent family hx - Female History Hx Now: No (hysterectomy) - Nursing Vital Signs Nursing Vital Signs: Initial Vital Signs Temperature 98.3 F 04/20/19 10:16 Pulse Rate 89 04/20/19 10:16 Blood Pressure 169/98 04/20/19 10:16 O2 Sat by Pulse Oximetry 98 04/20/19 10:16 Pain Scale Pain Intensity 6 - Physical Exam General Appearance: no apparent distress, alert Eye Exam: PERRL/EOMI, eyes nml inspection Ears, Nose, Throat Exam: normal ENT inspection, TMs normal, pharynx normal, moist mucous membranes Neck Exam: normal inspection, non-tender, supple, full range of motion Respiratory Exam: normal breath sounds, lungs clear, No respiratory distress Cardiovascular Exam: regular rate/rhythm, normal heart sounds, normal peripheral pulses Gastrointestinal/Abdomen Exam: soft, normal bowel sounds, No tenderness, No mass Back Exam: normal inspection, normal range of motion, No CVA tenderness, No vertebral tenderness Extremity Exam: normal inspection, normal range of motion, pelvis stable Neurologic Exam: alert, oriented x 3, cooperative, normal mood/affect, nml cerebellar function, nml station & gait, sensation nml, No motor deficits Skin Exam: normal color, warm, dry, No rash Lymphatic Exam: No adenopathy SpO2: 98 - Course Nursing assessment & vital signs reviewed: Yes Ordered Tests: Active Orders 24 hr Category Date Time Status AMYLASE Stat Lab 04/20/19 10:45 Completed CBC W DIFF Stat Lab 04/20/19 10:45 Completed CMP Stat Lab 04/20/19 10:45 Completed LIPASE Stat Lab 04/20/19 10:45 Completed Medication Summary Generic Name Dose Route Start Last Admin Trade Name Freq PRN Reason Stop Dose Admin Sodium Chloride 1,000 mls @ 999 mls/hr 04/20/19 11:41 Sodium Chloride 0.9% 1000 Ml IV 04/20/19 12:41 .Q1H1M STA Discontinued Medications Generic Name Dose Route Start Last Admin Trade Name Guillermina PRN Reason Stop Dose Admin Sodium Chloride 1,000 mls @ 999 mls/hr 04/20/19 10:42 04/20/19 11:13 Sodium Chloride 0.9% 1000 Ml IV 04/20/19 11:42 999 mls/hr .Q1H1M STA Administration Sodium Chloride Confirm 04/20/19 11:14 Sodium Chloride 0.9% 1000 Ml Administered 04/20/19 11:15 Dose 1,000 mls @ ud .ROUTE .STK-MED ONE Ondansetron HCl 4 mg 04/20/19 10:42 04/20/19 11:14 Zofran 4 Mg/2 Ml Vial IV 04/20/19 10:43 4 mg STAT ONE Administration Ondansetron HCl Confirm 04/20/19 11:14 Zofran 4 Mg/2 Ml Vial Administered 04/20/19 11:15 Dose 4 mg .ROUTE .STK-MED ONE Lab/Rad Data: Laboratory Result Diagrams 04/20/19 10:45 04/20/19 10:45 Laboratory Results 04/20/19 04/20/19 Range/Units 10:45 10:45 WBC 5.1 (4.0-10.5) K/mm3 RBC 4.74 (4.1-5.4) M/mm3 Hgb 14.1 (12.0-16.0) gm/dl Hct 40.7 (35-47) % MCV 85.9 (78-100) fl MCH 29.7 (26-32) pg MCHC 34.6 (32-36) g/dl RDW 13.7 (11.5-14.0) % Plt Count 221 (150-450) K/mm3 MPV 9.4 (6-9.5) fl Gran % 59.3 (36.0-66.0) % Eos # (Auto) 0.15 (0-0.5) Absolute Lymphs (auto) 1.37 (1.0-4.6) Absolute Monos (auto) 0.53 (0.0-1.3) Lymphocytes % 27.0 (24.0-44.0) % Monocytes % 10.5 (0.0-12.0) % Eosinophils % 3.0 (0.00-5.0) % Basophils % 0.2 (0.0-0.4) % Absolute Granulocytes 3.01 (1.4-6.9) Basophils # 0.01 (0-0.4) Sodium 136 L (137-145) mmol/L Potassium 3.3 L (3.5-5.1) mmol/L Chloride 105 (98-107) mmol/L Carbon Dioxide 24 (22-30) mmol/L Anion Gap 10.7 (5-15) MEQ/L BUN 20 H (7-17) mg/dL Creatinine 0.90 (0.52-1.04) mg/dL Estimated GFR > 60.0 ML/MIN Glucose 116 H (74-106) mg/dL Calcium 8.7 (8.4-10.2) mg/dL Total Bilirubin 0.30 (0.2-1.3) mg/dL AST 26 (14-36) U/L ALT 14 (0-35) U/L Alkaline Phosphatase 101 (38-126) U/L Serum Total Protein 6.7 (6.3-8.2) g/dL Albumin 3.7 (3.5-5.0) g/dL Amylase 94 (30-110) U/L Lipase 215 (23-300) U/L - Progress Progress: improved Counseled pt/family regarding: lab results, diagnosis, need for follow-up - Departure Departure Disposition: Home Clinical Impression: Gastroenteritis and colitis, viral, Dehydration Condition: Stable Critical Care Time: No Referrals: DAHIANA DIAZ [Primary Care Provider] - Instructions: Dehydration, Adult (DC) Additional Instructions: Discharge/Care Plan MARCELO RANGEL was seen on 04/20/19 in the Emergency Room. The patient was counseled regarding Diagnosis,Lab results, Imaging studies, need for follow up and when to return to the Emergency Room. Prescriptions given: Discharge Note I have spoken with the patient and/or caregivers. I have explained the patient' s condition, diagnosis and treatment plan based on the information available to me at this time. I have answered the patient's and/or caregiver's questions and addressed any concerns. The patient and/or caregivers have as good understanding of the patient's diagnosis, condition and treatment plan as can be expected at this point. The vital signs have been stable. The patient's condition is stable and appropriate for discharge from the emergency department. The patient will pursue further outpatient evaluation with the primary care physician or other designated or consulting physician as outlined in the discharge instructions. The patient and/or caregivers are agreeable to this plan of care and follow-up instructions have been explained in detail. The patient and/or caregivers have received these instruction. The patient/and or caregivers are aware that any significant change in condition or worsening of symptoms should prompt an immediate return to this or the closest emergency department or call 911. MARCELO RANGEL was seen on 04/20/19 n the Emergency Room. At that time you were treated for an emergent condition, during your visit Laboratory, Radiology and/or other procedures may have been ordered. It is very important that you follow-up with your Primary Care Physician DAHIANA DIAZ within the next 24-48 hours to review your Emergency Room visit and the final results of testing that was ordered. Some test results such as Urine Cultures, Blood Cultures, and other cultures if ordered will not be finalized for 24-48 hours. If you do not have a Primary Care Provider please call the medical records department at [phone] ext [phone] to obtain a copy of your results or you may sign into our patient portal to obtain these results by visiting us @ [email or web address] and completing the following steps: 1. Click on the Patient Portal link 2. Click the Patient Self Enrollment Link to complete the enrollment form and entering your 3. Once the enrollment form is completed you will receive an email with a temporary ID and password at the email address you provided. 4. Next choose a user name and password. Your user name must be at least 4 characters long and your password must be at least 4 characters long. 5. Choose a security question from the list and provide your answer to the question. If you already have signed into the Health Portal you may access your Health Care Information 13/11 by the following steps: 1. Login to our website @ [email or web address] 2. Enter your original user name and password. FAQS The [facility] Health Portal is an online tool that contains your Lab Results, Radiology Reports, Visit History, Discharge Instructions and Health Summary Lab and Radiology Results will not be available for 72 hours on the portal. The Portal is a secure site, passwords are encryted and URLs are re-written so they cannot be copied and pasted. You and authorized family members are the only ones who can access your Portal. Also there is a timeout feature that protects your information if you leave the Portal page open. If you have technical difficulty please use the Contact Us link on the page this will allow you to submit any questions you have regarding the Portal or you may contact the Medical Record Department at [phone] ext [phone]. Prescriptions: Ondansetron ODT 4 MG [Zofran Odt 4 mg] 4 mg PO Q6H PRN PRN #20 tab.rapdis PRN Reason: Nausea/Vomiting
[2019-04-20 10:58] LABS: Absolute Neutrophil Ct (ANC) 3.01 (1.4-6.9); BASOPHIL % 0.2 % (0.0-0.4); Basophil (Absolute #) 0.01 (0-0.4); Eosinophil (Absolute #) 0.15 (0-0.5); Hematocrit 40.7 % (35-47); Hemoglobin 14.1 gm/dl (12.0-16.0); Lymphocyte (Absolute #) 1.37 (1.0-4.6); Mean Cell Volume 85.9 fl (78-100); Mean Corpuscular Hemoglobin 29.7 pg (26-32); Mean Corpuscular Hgb Concent. 34.6 g/dl (32-36); Mean Platelet Volume 9.4 fl (6-9.5); Monocyte (Absolute #) 0.53 (0.0-1.3); Monocytes % 10.5 % (0.0-12.0); Neutrophil % 59.3 % (36.0-66.0); Platelet Count 221 K/mm3 (150-450); Red Blood Count 4.74 M/mm3 (4.1-5.4); Red Cell Distribution Width 13.7 % (11.5-14.0); White Blood Count 5.1 K/mm3 (4.0-10.5)
[2019-04-20 11:09] LABS: ALBUMIN 3.7 g/dL (3.5-5.0); ALKALINE PHOSPHATASE 101 U/L (38-126); AMYLASE 94 U/L (30-110); ANION GAP 10.7 MEQ/L (5-15); BLOOD UREA NITROGEN 20 mg/dL (7-17); CHLORIDE 105 mmol/L (98-107); Calcium 8.7 mg/dL (8.4-10.2); Carbon Dioxide 24 mmol/L (22-30); Glucose 116 mg/dL (74-106); LIPASE 215 U/L (23-300); Potassium 3.3 mmol/L (3.5-5.1); SGOT/AST 26 U/L (14-36); SGPT/ALT 14 U/L (0-35); SODIUM 136 mmol/L (137-145); Total Protein 6.7 g/dL (6.3-8.2)
[2019-04-20] MEDS ORDERED: Sodium Chloride 0.9% 1000 ML 1,000 ML ONE ×2 (11:14→11:56)
[2019-04-20] MEDS ORDERED: Zofran 4 MG/2 ML VIAL ONE (11:14)
[2019-04-20 12:56] VITALS: BP 148/99; PULSE 75; O2SAT 100
== END 2019-04-20 12:58 | disposition home or self-care (01) ==
LOC: ED 10:13
DX: A08.4 Viral intestinal infection, unspecified (principal); K52.9 Noninfective gastroenteritis and colitis, unspecified; E86.0 Dehydration
CPT/HCPCS: 36415; 80053; 82150; 83690; 85025; 96360; 96374; 99284; J2405

== ENCOUNTER 2020-03-13 17:50 | Emergency (ER) | payer BC ==
[2020-03-13] MEDS ORDERED: DUONEB 0.5-3 MG/3 ml Neb IH ONE ×2 (17:56→18:27)
--- NOTE | 2020-03-13 18:18 | ERPHSYRPT ---
- History of Present Illness Time Seen by Provider: 03/13/20 18:15 Source: patient Exam Limitations: no limitations Patient Subjective Stated Complaint: cough, MAYEN, congestion Triage Nursing Assessment: pt to ED c/o cough, MAYEN, and fevers x . was tested fir COVID in [place] and still awaiting results. 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 denies NV or loss taste and smell. states she has not been exposed to her knowledge but still works with public. Physician History: cough, MAYEN, congestion for 2 days. c/o cough, MAYEN, and fevers x . was tested for COVID in [place] and still awaiting results. 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 denies NV or loss taste and smell. states she has not been exposed to her knowledge but still works with public. Timing/Duration: day(s) (2 days) Cough Quality/Degree: dry cough Associated Symptoms: fever, chills, muscle aches, shortness of breath Allergies/Adverse Reactions: shrimp Allergy (Severe, Verified 03/13/20 18:07) Swelling of Tongue and Lips morphine Adverse Reaction (Mild, Verified 03/13/20 18:07) ITCH Home Medications: Estradiol [Estrace] 2 mg PO DAILY 07/20/15 [History] Oxcarbazepine 300 mg [Trileptal 300 MG Tablet] 300 mg PO DAILY 07/20/15 [History] Amlodipine Besylate 5 mg [Norvasc 5 mg] 5 mg PO DAILY 04/20/19 [History] Duloxetine HCl [Cymbalta] 60 mg PO DAILY 04/20/19 [History] Levothyroxine Sodium [Tirosint] 150 mg PO DAILY 04/20/19 [History] Prasterone (Dhea) [Intrarosa] 6.5 mg VG UD 04/20/19 [History] Hx Tetanus, Diphtheria Vaccination/Date Given: Yes Hx Influenza Vaccination/Date Given: No Hx Pneumococcal Vaccination/Date Given: No Immunizations Up to Date: Yes Travel Risk - International Travel Have you traveled outside of the country in past 3 weeks: No - Coronavirus Screening Are you exhibiting any of the following symptoms?: Yes Symptoms: Cough: New Onset, Shortness of Breath, Headaches/Body Aches/Fatigue Close contact with a COVID-19 positive Pt in past 14-21 Days: No - Review of Systems Constitutional: No Fever, No Chills Eyes: No Symptoms Ears, Nose, & Throat: No Symptoms Respiratory: Cough, No Dyspnea Cardiac: No Chest Pain, No Edema, No Syncope Abdominal/Gastrointestinal: No Abdominal Pain, No Nausea, No Vomiting, No Diarrhea Genitourinary Symptoms: No Dysuria Musculoskeletal: No Back Pain, No Neck Pain Skin: No Rash Neurological: No Dizziness, No Focal Weakness, No Sensory Changes Psychological: No Symptoms Endocrine: No Symptoms All Other Systems: Reviewed and Negative - Past Medical History Pertinent Past Medical History: Yes Neurological History: Other ENT History: No Pertinent History Cardiac History: No Pertinent History Respiratory History: Pneumonia, Sleep Apnea Endocrine Medical History: Hypothyroidism Musculoskeletal History: No Pertinent History GI Medical History: Gallbladder Disease, Ulcer History: No Pertinent History Psycho-Social History: No Pertinent History Female Reproductive Disorders: Other Other Medical History: N/T into medial side of R foot - Past Surgical History Past Surgical History: Yes Neuro Surgical History: No Pertinent History Cardiac: No Pertinent History Respiratory: No Pertinent History Gastrointestinal: Cholecystectomy Genitourinary: No Pertinent History Musculoskeletal: Other Female Surgical History: Section, Hysterectomy, Lumpectomy Other Surgical History: carpal tunnel- bilateral. uterine ablation - Social History Smoking Status: Never smoker Exposure to second hand smoke: No Drug Use: none Patient Lives Alone: No Significant Family History: no pertinent family hx - Nursing Vital Signs Nursing Vital Signs: Initial Vital Signs Temperature 99.2 F 03/13/20 17:54 Pulse Rate 103 H 03/13/20 17:54 Respiratory Rate 18 03/13/20 17:54 Blood Pressure 157/103 03/13/20 17:54 O2 Sat by Pulse Oximetry 97 03/13/20 17:54 Pain Scale Pain Intensity 5 - Physical Exam General Appearance: no apparent distress, alert Eye Exam: PERRL/EOMI, eyes nml inspection Ears, Nose, Throat Exam: normal ENT inspection, TMs normal, pharynx normal, moist mucous membranes Neck Exam: normal inspection, non-tender, supple, full range of motion Respiratory Exam: wheezing, No respiratory distress Cardiovascular Exam: regular rate/rhythm, normal heart sounds Gastrointestinal/Abdomen Exam: soft, No tenderness Back Exam: normal inspection, No CVA tenderness, No vertebral tenderness Extremity Exam: normal inspection, normal range of motion Neurologic Exam: alert, oriented x 3, cooperative, normal mood/affect, sensation nml, No motor deficits Skin Exam: normal color, warm, dry, No rash Lymphatic Exam: No adenopathy SpO2: 99 - Course Nursing assessment & vital signs reviewed: Yes - Radiology Exams Chest X-ray Interpretation: Reviewed by me, Negative, No Pneumonia Ordered Tests: Active Orders 24 hr Category Date Time Status CHEST 2 VIEWS (PA AND LAT) Stat Exams 03/13/20 17:57 Ordered CBC W DIFF Stat Lab 03/13/20 18:15 Completed CMP Stat Lab 03/13/20 18:15 Received Respiratory Therapy Assessment DAILY RT 03/13/20 18:31 Active Medication Summary Discontinued Medications Generic Name Dose Route Start Last Admin Trade Name Freq PRN Reason Stop Dose Admin Albuterol/Ipratropium 3 ml 03/13/20 17:56 03/13/20 18:29 Duoneb 0.5-3 Mg/3 Ml Neb IH 03/13/20 17:57 3 ml STAT ONE Administration Albuterol/Ipratropium Confirm 03/13/20 18:27 Duoneb 0.5-3 Mg/3 Ml Neb Administered 03/13/20 18:28 Dose 3 ml IH .STK-MED ONE Lab/Rad Data: Laboratory Result Diagrams 03/13/20 18:15 Laboratory Results 03/13/20 Range/Units 18:15 WBC 3.6 L (4.0-10.5) K/mm3 RBC 4.26 (4.1-5.4) M/mm3 Hgb 12.7 (12.0-16.0) gm/dl Hct 38.2 (35-47) % MCV 89.7 (78-100) fl MCH 29.8 (26-32) pg MCHC 33.2 (32-36) g/dl RDW 13.4 (11.5-14.0) % Plt Count 176 (150-450) K/mm3 MPV 9.8 (7.5-11.0) fl Gran % 56.8 (36.0-66.0) % Eos # (Auto) 0.09 (0-0.5) Absolute Lymphs (auto) 0.98 L (1.0-4.6) Absolute Monos (auto) 0.46 (0.0-1.3) Lymphocytes % 27.5 (24.0-44.0) % Monocytes % 12.9 H (0.0-12.0) % Eosinophils % 2.5 (0.00-5.0) % Basophils % 0.3 (0.0-0.4) % Absolute Granulocytes 2.03 (1.4-6.9) Basophils # 0.01 (0-0.4) - Progress Progress: unchanged Air Movement: good Blood Culture(s) Obtained: No Antibiotics given: No Counseled pt/family regarding: lab results, diagnosis, need for follow-up, rad results - Departure Departure Disposition: Home Clinical Impression: Cough with exposure to COVID-19 virus Condition: Stable Critical Care Time: No Referrals: LILA NATH MD [Primary Care Provider] - Instructions: Coronavirus Disease 2019 (COVID-19) (DC) Additional Instructions: Discharge/Care Plan CLAIREJENNIFERMARCELOFRANCO ELIAS was seen on 03/13/20 in the Emergency Room. The patient was counseled regarding Diagnosis,Lab results, Imaging studies, need for follow up a nd when to return to the Emergency Room. Prescriptions given: Discharge Note I have spoken with the patient and/or caregivers. I have explained the patient's condition, diagnosis and treatment plan based on the information available to me at this time. I have answered the patient's and/or caregiver's questions and addressed any concerns. The patient and/or caregivers have as good understanding of the patient's diagnosis, condition and treatment plan as can be expected at this point. The vital signs have been stable. The patient's condition is stable and appropriate for discharge from the emergency department. The patient will pursue further outpatient evaluation with the primary care physician or other designated or consulting physician as outlined in the discharge instructions. The patient and/or caregivers are agreeable to this plan of care and follow-up instructions have been explained in detail. The patient and/or caregivers have received these instruction. The patient/and or caregivers are aware that any significant change in condition or worsening of symptoms should prompt an immediate return to this or the closest emergency department or call 911. Prescriptions: Benzonatate [Tessalon Perle] 100 mg PO QID #30 capsule Azithromycin [Zithromax] 250 mg PO UD #6 tablet
[2020-03-13 18:20] LABS: Absolute Neutrophil Ct (ANC) 2.03 (1.4-6.9); BASOPHIL % 0.3 % (0.0-0.4); Basophil (Absolute #) 0.01 (0-0.4); Eosinophil % 2.5 % (0.00-5.0); Eosinophil (Absolute #) 0.09 (0-0.5); Hematocrit 38.2 % (35-47); Hemoglobin 12.7 gm/dl (12.0-16.0); Lymphocyte (Absolute #) 0.98 (1.0-4.6); Lymphocytes % 27.5 % (24.0-44.0); Mean Cell Volume 89.7 fl (78-100); Mean Corpuscular Hemoglobin 29.8 pg (26-32); Mean Corpuscular Hgb Concent. 33.2 g/dl (32-36); Mean Platelet Volume 9.8 fl (7.5-11.0); Monocyte (Absolute #) 0.46 (0.0-1.3); Monocytes % 12.9 % (0.0-12.0); Neutrophil % 56.8 % (36.0-66.0); Platelet Count 176 K/mm3 (150-450); Red Blood Count 4.26 M/mm3 (4.1-5.4); Red Cell Distribution Width 13.4 % (11.5-14.0); White Blood Count 3.6 K/mm3 (4.0-10.5)
[2020-03-13 18:38] LABS: ALBUMIN 3.3 g/dL (3.5-5.0); ALKALINE PHOSPHATASE 123 U/L (38-126); ANION GAP 9.7 MEQ/L (5-15); BLOOD UREA NITROGEN 21 mg/dL (7-17); CHLORIDE 106 mmol/L (98-107); Calcium 8.3 mg/dL (8.4-10.2); Carbon Dioxide 26 mmol/L (22-30); Creatinine 1 0.88 mg/dL (0.52-1.04); EST GLOMERULAR FILTRATION RATE > 60.0 ML/MIN; Glucose 123 mg/dL (74-106); SGOT/AST 30 U/L (14-36); SGPT/ALT 14 U/L (0-35); SODIUM 137 mmol/L (137-145); Total Protein 5.9 g/dL (6.3-8.2)
[2020-03-13] MEDS ORDERED: Zithromax 250 MG TABLET PO ONE (18:39)
[2020-03-13] MEDS ORDERED: Zithromax 250 MG TABLET ONE (18:42)
[2020-03-13 18:54] VITALS: BP 137/93; PULSE 95; O2SAT 98
--- NOTE | 2020-03-15 09:17 | XRAY ---
Indication: Cough and congestion 2 days. Comparison: July 23, 2016. PA/lateral chest demonstrates new mild left upper lobe infiltrate versus atelectasis and a few right lung calcified granulomas. Remaining heart and lungs unremarkable. Bony thorax intact. Comment: Left lung finding was reported to ordering clinician, Dr. Pickett at 1841 hrs. on March 13, 2020.
== END 2020-03-13 19:06 | disposition home or self-care (01) ==
LOC: ED 17:50
DX: R05 Cough (principal); Z20.828 Contact with and (suspected) exposure to other viral communicable diseases; R51.9 Headache, unspecified; R50.9 Fever, unspecified
CPT/HCPCS: 36415; 71046; 80053; 85025; 94640; 99284; A9270-GY

== ENCOUNTER 2021-02-16 15:15 | Day surgery (SDC) | payer BC ==
[2021-02-16] MEDS ORDERED: Decadron 4 MG INJ IV ONE (15:16)
[2021-02-16] MEDS ORDERED: Xylocaine 1% Vial 30 ML PF IJ ONE (15:16)
[2021-02-16] MEDS ORDERED: LIDOCAINE HCL 2% 100 MG/5 ML IJ ONE (15:16)
[2021-02-16] MEDS ORDERED: Lactated Ringers 1,000 ML IV ONE (17:30)
[2021-02-16] MEDS ORDERED: DIPRIVAN 200 MG/20 ML IV ONE ×2 (17:45→17:56)
--- NOTE | 2021-02-17 07:18 | XRAY ---
Indication: Right C2-C4 MBB. Intraoperative fluoroscopy provided for 44 seconds. 2 digital spot images submitted for interpretation demonstrates posterior needle tips projecting over the expected right C2-C4 nerve roots. Correlate with intraoperative findings/report.
--- NOTE | 2021-02-17 10:20 | XRAY ---
44 seconds fluoroscopy time in surgery for right C2-C4 MBB.
== END 2021-02-16 18:15 | disposition home or self-care (01) ==
LOC: SDC-PAIN 15:15
PROVIDERS: ATTEND Psychiatry & Neurology Pain Medicine
DX: M47.812 Spondylosis without myelopathy or radiculopathy, cervical region (principal); I10 Essential (primary) hypertension; Z79.899 Other long term (current) drug therapy
CPT/HCPCS: 64490; 64491; 72020; 77002; J1100; J2001; J2704

== ENCOUNTER 2021-03-09 13:14 | Day surgery (SDC) | payer BC ==
[2021-03-09] MEDS ORDERED: BUPIVACAINE 0.5% VIAL IJ ONE (13:15)
[2021-03-09] MEDS ORDERED: Xylocaine 1% Vial 30 ML PF IJ ONE (13:15)
[2021-03-09] MEDS ORDERED: Decadron 4 MG INJ IV ONE (13:15)
[2021-03-09] MEDS ORDERED: DIPRIVAN 200 MG/20 ML IV ONE ×2 (15:10→15:25)
[2021-03-09] MEDS ORDERED: MORPHINE SULFATE 2 MG INJ ONE (15:44)
--- NOTE | 2021-03-09 16:26 | XRAY ---
Indication: Right C2-C4 MBB. Intraoperative fluoroscopy provided for 1 minute 16 seconds. 5 digital spot images submitted for interpretation demonstrates posterior needle tips projecting over the expected right C2-C4 nerve roots. Correlate with intraoperative findings/report.
[2021-03-09] MEDS ORDERED: Lactated Ringers 1,000 ML IV ONE (16:29)
--- NOTE | 2021-03-09 16:29 | XRAY ---
1 minute and 16 seconds fluoroscopy time in surgery for right C2-C4 MBB.
== END 2021-03-09 15:51 | disposition home or self-care (01) ==
LOC: SDC-PAIN 13:14
PROVIDERS: ATTEND Psychiatry & Neurology Pain Medicine
DX: M47.812 Spondylosis without myelopathy or radiculopathy, cervical region (principal); Z79.891 Long term (current) use of opiate analgesic
CPT/HCPCS: 64490; 64491; 72040; 77002; J1100; J2001; J2270; J2704

== ENCOUNTER 2021-04-13 14:29 | Day surgery (SDC) | payer BC ==
[2021-04-13] MEDS ORDERED: Xylocaine 1% Vial 30 ML PF IJ ONE (14:30)
[2021-04-13] MEDS ORDERED: Decadron 4 MG INJ IV ONE (14:30)
[2021-04-13] MEDS ORDERED: BUPIVACAINE 0.5% VIAL IJ ONE (14:30)
[2021-04-13] MEDS ORDERED: Lactated Ringers 1,000 ML IV ONE (15:52)
[2021-04-13] MEDS ORDERED: DIPRIVAN 200 MG/20 ML IV ONE ×3 (16:37→17:00)
--- NOTE | 2021-04-13 18:52 | XRAY ---
Indication: Right C2-C4 RFA. Intraoperative fluoroscopy provided for 1 minutes 55 seconds. 3 digital spot image submitted for interpretation demonstrates posterior needle tips projecting over the expected right C2-C4 nerve roots. Correlate with intraoperative findings/report.
--- NOTE | 2021-04-14 09:07 | XRAY ---
1 minute and 55 seconds fluoroscopy time in surgery for right C2-C4 RFA.
== END 2021-04-13 17:25 | disposition home or self-care (01) ==
LOC: SDC-PAIN 14:29
PROVIDERS: ATTEND Psychiatry & Neurology Pain Medicine
DX: M47.812 Spondylosis without myelopathy or radiculopathy, cervical region (principal); I10 Essential (primary) hypertension; Z79.899 Other long term (current) drug therapy
CPT/HCPCS: 64633; 64634; 72040; 77002; 82947; J1100; J2001; J2704

== ENCOUNTER 2022-07-12 13:30 | Emergency (ER) | payer BC ==
--- NOTE | 2022-07-12 13:48 | ERPHSYRPT ---
- History of Present Illness Time Seen by Provider: 07/12/22 13:47 Historian: patient Exam Limitations: no limitations Physician History: This is a 56-year-old white female patient who presents with right upper quadrant and epigastric abdominal pain that began this morning while at work. Patient did not have any symptoms yesterday or this morning. She was sitting at work when the symptoms began. Patient does not have chest pain. She had no shortness of breath. She had no cough. She had no fevers. She has had no vomiting or diarrhea symptoms. She has had no urinary symptoms. She does states that in the last 2 weeks she has had some intermittent episodes are much milder. They became severe this morning. She has had a cholecystectomy in the past as well as a section and hysterectomy. Patient has a history of hypertension, diabetes, hypothyroidism, and sleep apnea. She is on Ozempic. She states that she has been on this medication for a while. There is been no recent change in her dosages. Timing/Duration: today Activities at Onset: none Quality: sharpness Abdominal Pain Onset Location: RUQ, epigastric Severity of Pain-Max: moderate Severity of Pain-Current: moderate Modifying Factors: Improves With: nothing Associated Symptoms: No chest pain, No fever/chills, No nausea, No neck pain Previous symptoms: no prior history Allergies/Adverse Reactions: shrimp Allergy (Severe, Verified 07/12/22 13:52) Swelling of Tongue and Lips morphine Adverse Reaction (Mild, Verified 07/12/22 13:52) ITCH Home Medications: estradioL [Estrace] 2 mg PO DAILY 07/20/15 [History] Amlodipine Besylate 5 mg [Norvasc 5 mg] 5 mg PO DAILY 04/20/19 [History] Duloxetine HCl [Cymbalta] 60 mg PO DAILY 04/20/19 [History] Levothyroxine Sodium [Tirosint] 137 mg PO DAILY 04/20/19 [History] Liothyronine Sodium [Cytomel] 5 mcg PO DAILY 07/12/22 [History] Metformin HCl Xr 500 mg [Glucophage XR 500 MG] 1,000 mg PO BID 07/12/22 [History] Metoprolol Succinate 25 mg Xl* [Toprol-Xl 25MG Tablets] 25 mg PO DAILY 07/12/22 [History] Pioglitazone 30 mg [Actos 30 MG] 30 mg PO DAILY 07/12/22 [History] Semaglutide [Ozempic] 1 mg SQ WEEKLY 07/12/22 [History] Hx Tetanus, Diphtheria Vaccination/Date Given: Yes Hx Influenza Vaccination/Date Given: No Hx Pneumococcal Vaccination/Date Given: No Travel Risk - International Travel Have you traveled outside of the country in past 3 weeks: No - Coronavirus Screening Are you exhibiting any of the following symptoms?: No Close contact with a COVID-19 positive Pt in past 14-21 Days: No - Review of Systems Constitutional: No Symptoms Eyes: No Symptoms Ears, Nose, & Throat: No Symptoms Respiratory: No Symptoms Cardiac: No Symptoms Abdominal/Gastrointestinal: Abdominal Pain (Right upper quadrant and epigastric), No Nausea, No Vomiting, No Diarrhea Genitourinary Symptoms: No Symptoms Musculoskeletal: No Symptoms Skin: No Symptoms Neurological: No Symptoms Psychological: No Symptoms Endocrine: No Symptoms Hematologic/Lymphatic: No Symptoms Immunological/Allergic: No Symptoms All Other Systems: Reviewed and Negative - Past Medical History Pertinent Past Medical History: Yes Neurological History: Other ENT History: No Pertinent History Cardiac History: No Pertinent History Respiratory History: Pneumonia, Sleep Apnea Endocrine Medical History: Hypothyroidism Musculoskeletal History: No Pertinent History GI Medical History: Gallbladder Disease, Ulcer History: No Pertinent History Psycho-Social History: No Pertinent History Female Reproductive Disorders: Other Other Medical History: N/T into medial side of R foot - Past Surgical History Past Surgical History: Yes Neuro Surgical History: No Pertinent History Cardiac: No Pertinent History Respiratory: No Pertinent History Gastrointestinal: Cholecystectomy Genitourinary: No Pertinent History Musculoskeletal: Other Female Surgical History: Section, Hysterectomy, Lumpectomy Other Surgical History: carpal tunnel- bilateral. uterine ablation - Social History Smoking Status: Never smoker Exposure to second hand smoke: No Drug Use: none Patient Lives Alone: No Significant Family History: no pertinent family hx - Nursing Vital Signs Nursing Vital Signs: Initial Vital Signs Temperature 97.5 F 07/12/22 13:41 Pulse Rate 76 07/12/22 13:41 Blood Pressure 165/88 07/12/22 13:41 O2 Sat by Pulse Oximetry 100 07/12/22 13:41 Pain Scale Pain Intensity 7 - Physical Exam General Appearance: no apparent distress, alert, anxiety Eye Exam: PERRL/EOMI, eyes nml inspection Ears, Nose, Throat Exam: normal ENT inspection, moist mucous membranes Neck Exam: normal inspection, non-tender, supple, full range of motion Respiratory Exam: normal breath sounds, lungs clear, airway intact, No chest tenderness, No respiratory distress Cardiovascular Exam: regular rate/rhythm, normal heart sounds, normal peripheral pulses Gastrointestinal/Abdomen Exam: soft, normal bowel sounds, tenderness, guarding (Right upper quadrant/epigastric region to palpation right upper quadrant/epigastric region to palpation), No rebound Pelvic Exam: not done Rectal Exam: not done Back Exam: normal inspection, normal range of motion, No CVA tenderness, No vertebral tenderness Extremity Exam: normal inspection, normal range of motion, pelvis stable Neurologic Exam: alert, oriented x 3, cooperative, administrative asst 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 nml as tested, normal mood/affect, nml cerebellar function, nml station & gait, sensation nml Skin Exam: normal color, warm, dry Lymphatic Exam: No adenopathy SpO2 Interpretation: normal O2 Delivery: Room Air - Course Nursing assessment & vital signs reviewed: Yes Ordered Tests: Active Orders 24 hr Category Date Time Status EKG-ER Only STAT Care 07/12/22 14:35 Active IV Insertion STAT Care 07/12/22 14:35 Active ABDOMEN AND PELVIS W/0 CONTRAS [CT] Stat Exams 07/12/22 14:35 Completed AMYLASE Stat Lab 07/12/22 13:50 Completed CBC W DIFF Stat Lab 07/12/22 13:50 Completed CMP Stat Lab 07/12/22 15:48 Completed LIPASE Stat Lab 07/12/22 13:50 Completed Lactic Acid Stat Lab 07/12/22 14:35 Completed TROPONIN Q4H Lab 07/12/22 13:50 Completed TROPONIN Q4H Lab 07/12/22 18:45 Ordered TROPONIN Q4H Lab 07/12/22 22:45 Ordered UA W/RFX UR CULTURE Stat Lab 07/12/22 14:35 Ordered Medication Summary Discontinued Medications Generic Name Dose Route Start Last Admin Trade Name Freq PRN Reason Stop Dose Admin Hydromorphone HCl 0.5 mg 07/12/22 16:08 Hydromorphone 1 Mg/1ml Inj 1 Mg/Ml Syringe IV 07/12/22 16:09 STAT ONE Magnesium Hydroxide 45 ml 07/12/22 16:08 Mag Hydrx/Alum Hyd/Simeth/Lido 45 Ml Bottle PO 07/12/22 16:09 STAT ONE Ondansetron HCl 4 mg 07/12/22 16:08 Ondansetron Hcl 4 Mg/2 Ml Vial IV 07/12/22 16:09 STAT ONE Lab/Rad Data: Laboratory Result Diagrams 07/12/22 13:50 07/12/22 15:48 Laboratory Results 07/12/22 07/12/22 07/12/22 Range/Units 15:48 14:35 13:50 WBC (4.0-10.5) x10^3/uL RBC (4.1-5.4) x10^6/uL Hgb (12.0-16.0) g/dL Hct (35-47) % MCV (78-100) fL MCH (26-32) pg MCHC (32-36) g/dL RDW (11.5-14.0) % Plt Count (150-450) x10^3/uL MPV (7.5-11.0) fL Gran % (36.0-66.0) % Immature Gran % (Auto) (0.00-0.4) % Nucleat RBC Rel Count (0.00-0.1) % Eos # (Auto) (0-0.5) x10^3/uL Immature Gran # (Auto) (0.00-0.03) x10^3u/L Absolute Lymphs (auto) (1.0-4.6) x10^3/uL Absolute Monos (auto) (0.0-1.3) x10^3/uL Absolute Nucleated RBC (0.00-0.01) x10^3u/L Lymphocytes % (24.0-44.0) % Monocytes % (0.0-12.0) % Eosinophils % (0.00-5.0) % Basophils % (0.0-0.4) % Absolute Granulocytes (1.4-6.9) x10^3/uL Basophils # (0-0.4) x10^3/uL Sodium 138 (137-145) mmol/L Potassium 4.1 (3.5-5.1) mmol/L Chloride 101 (98-107) mmol/L Carbon Dioxide 26 (22-30) mmol/L Anion Gap 15.9 H (5-15) MEQ/L BUN 22 H (7-17) mg/dL Creatinine 1.07 H (0.52-1.04) mg/dL Estimated GFR 56.4 ML/MIN Glucose 91 (74-106) mg/dL Lactic Acid 1.1 (0.4-2.0) Calcium 9.5 (8.4-10.2) mg/dL Total Bilirubin 0.40 (0.2-1.3) mg/dL AST 31 (14-36) U/L ALT 19 (0-35) U/L Alkaline Phosphatase 133 H (38-126) U/L Troponin I < 0.012 (0.000-0.034) ng/mL Serum Total Protein 7.4 (6.3-8.2) g/dL Albumin 4.4 (3.5-5.0) g/dL Amylase (30-110) U/L Lipase (23-300) U/L 07/12/22 07/12/22 Range/Units 13:50 13:50 WBC 7.5 (4.0-10.5) x10^3/uL RBC 4.77 (4.1-5.4) x10^6/uL Hgb 13.8 (12.0-16.0) g/dL Hct 41.0 (35-47) % MCV 86.0 (78-100) fL MCH 28.9 (26-32) pg MCHC 33.7 (32-36) g/dL RDW 12.8 (11.5-14.0) % Plt Count 324 (150-450) x10^3/uL MPV 10.4 (7.5-11.0) fL Gran % 58.9 (36.0-66.0) % Immature Gran % (Auto) 0.3 (0.00-0.4) % Nucleat RBC Rel Count 0.0 (0.00-0.1) % Eos # (Auto) 0.13 (0-0.5) x10^3/uL Immature Gran # (Auto) 0.02 (0.00-0.03) x10^3u/L Absolute Lymphs (auto) 2.39 (1.0-4.6) x10^3/uL Absolute Monos (auto) 0.50 (0.0-1.3) x10^3/uL Absolute Nucleated RBC 0.00 (0.00-0.01) x10^3u/L Lymphocytes % 32.0 (24.0-44.0) % Monocytes % 6.7 (0.0-12.0) % Eosinophils % 1.7 (0.00-5.0) % Basophils % 0.4 (0.0-0.4) % Absolute Granulocytes 4.39 (1.4-6.9) x10^3/uL Basophils # 0.03 (0-0.4) x10^3/uL Sodium (137-145) mmol/L Potassium (3.5-5.1) mmol/L Chloride (98-107) mmol/L Carbon Dioxide (22-30) mmol/L Anion Gap (5-15) MEQ/L BUN (7-17) mg/dL Creatinine (0.52-1.04) mg/dL Estimated GFR ML/MIN Glucose (74-106) mg/dL Lactic Acid (0.4-2.0) Calcium (8.4-10.2) mg/dL Total Bilirubin (0.2-1.3) mg/dL AST (14-36) U/L ALT (0-35) U/L Alkaline Phosphatase (38-126) U/L Troponin I (0.000-0.034) ng/mL Serum Total Protein (6.3-8.2) g/dL Albumin (3.5-5.0) g/dL Amylase 111 H (30-110) U/L Lipase 101 (23-300) U/L - Progress Progress: improved, pain not gone completely, re-examined Progress Note: 07/12/22 16:19 CAT scan of the abdomen and pelvis without contrast shows no acute intra- abdominal or intrapelvic abnormality. This patient's medical issue is 1 of moderate complexity. The level of complexity in the work-up performed were based on review of the patient's past medical history, review of the patient's medication list, review of the patient's allergy list (patient states that she can take Dilaudid without any problems), history of present illness and physical findings on examination. The work-up included placement of intravenous line, providing intravenous fluids, providing antiemetics, Dilaudid intravenously, CBC, CMP, amylase, lipase, urinalysis, CT scan of the abdomen pelvis. I reviewed the results of the studies and discussed them with the patient and her spouse. Discharge plan was also discussed with the patient and patient's spouse. Patient will begin with a clear liquid diet and advance as tolerated. She is to avoid fatty greasy spicy foods. She will follow-up with her primary care provider tomorrow by phone to make arrangements for follow-up appointment within 5 to 7 days to be referred to a test desk trouble locator or other individual to perform an endoscopy. We will provide her with a prescription for Zofran and [employer] 5/325 tablets. 07/12/22 16:25 Counseled pt/family regarding: lab results, diagnosis, need for follow-up, rad results Medical Desision Making - Independent Historian Additional History obtained from: Spouse - Discussion of managment Reviewed:: Test results, Need for additional workup Agreed on:: Treatment plan, need for follow-up - Diagnostic Testing Diagnostic test were ordered, analyzed, and reviewed by me: Yes Radiological Interpretation: Reviewed by me - Risk of complications The pt has a mod risk of morbidity or mortality based on: Need for prescription drug management - Departure Departure Disposition: Home Clinical Impression: Abdominal pain Condition: Stable Critical Care Time: No Referrals: LILA NATH MD [Primary Care Provider] - Follow up/PCP as directed Additional Instructions: Drink plenty of clear liquids before advancing diet. Avoid fatty greasy spicy foods. Call your primary care provider tomorrow to make arrangements for follow-up appointment in 5 to 7 days. Discuss with your primary care provider whether they feel that your symptoms may be related to Ozempic and for referral to specialist that can perform an upper endoscopy if indicated. Take all your medication as prescribed. Prescriptions: Ondansetron ODT 4 MG [Zofran Odt 4 mg] 4 mg PO Q6H PRN PRN #10 tablet PRN Reason: Vomiting Hydrocodone/APAP 5/325 [[employer] 5/325 mg] 1 each PO Q12H PRN PRN #6 tablet MDD 2 PRN Reason: Pain
[2022-07-12 15:05] LABS: Absolute Neutrophil Ct (ANC) 4.39 x10^3/uL (1.4-6.9); BASOPHIL % 0.4 % (0.0-0.4); Basophil (Absolute #) 0.03 x10^3/uL (0-0.4); Eosinophil % 1.7 % (0.00-5.0); Eosinophil (Absolute #) 0.13 x10^3/uL (0-0.5); Hemoglobin 13.8 g/dL (12.0-16.0); IMMATURE GRAN # 0.02 x10^3u/L (0.00-0.03); IMMATURE GRAN % 0.3 % (0.00-0.4); Lymphocyte (Absolute #) 2.39 x10^3/uL (1.0-4.6); Mean Corpuscular Hemoglobin 28.9 pg (26-32); Mean Corpuscular Hgb Concent. 33.7 g/dL (32-36); Mean Platelet Volume 10.4 fL (7.5-11.0); Monocytes % 6.7 % (0.0-12.0); Neutrophil % 58.9 % (36.0-66.0); Platelet Count 324 x10^3/uL (150-450); Red Blood Count 4.77 x10^6/uL (4.1-5.4); Red Cell Distribution Width 12.8 % (11.5-14.0); White Blood Count 7.5 x10^3/uL (4.0-10.5)
[2022-07-12 15:13] LABS: AMYLASE 111 U/L (30-110); LIPASE 101 U/L (23-300)
--- NOTE | 2022-07-12 15:23 | XRAY ---
Indication: Epigastric pain. Multiple contiguous axial images obtained through the abdomen and pelvis without contrast. Comparison: February 04, 2018 Lung bases clear again with a few incidental right lung calcified granulomas. Heart not enlarged. Stomach mildly distended with food/fluid. Noncontrasted stomach and bowel loops nonobstructed again with normal appendix. Again hysterectomy with interval cholecystectomy. No free fluid/air. Remaining liver, pancreas, spleen, adrenal glands, kidneys, ureters, and bladder are unremarkable for noncontrast exam. Again mild aortoiliac calcifications without AAA. Osseous structures intact. No ventral inguinal hernias. Impression: 1. 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 2. Remaining CT abdomen/pelvis without contrast exam is negative.
[2022-07-12 15:25] VITALS: BP 164/94
[2022-07-12 15:58] LABS: ALBUMIN 4.4 g/dL (3.5-5.0); ANION GAP 15.9 MEQ/L (5-15); BILIRUBIN,TOTAL 0.4 mg/dL (0.2-1.3); Calcium 9.5 mg/dL (8.4-10.2); Creatinine 1 1.07 mg/dL (0.52-1.04); EST GLOMERULAR FILTRATION RATE 56.4 ML/MIN; Potassium 4.1 mmol/L (3.5-5.1); Total Protein 7.4 g/dL (6.3-8.2)
[2022-07-12] MEDS ORDERED: Hydromorphone 1 mg/ml Injection IV ONE (16:08)
[2022-07-12] MEDS ORDERED: Zofran 4 MG/2 ML VIAL IV ONE (16:08)
[2022-07-12] MEDS ORDERED: GI COCKTAIL 45 ML (Maalox/Lidocaine) PO ONE (16:08)
[2022-07-12] MEDS ORDERED: Hydromorphone 1 mg/ml Injection ONE (16:24)
[2022-07-12] MEDS ORDERED: Zofran 4 MG/2 ML VIAL ONE (16:24)
[2022-07-12] MEDS ORDERED: MAALOX ES 30 ML UNIT DOSE ONE (16:25)
[2022-07-12] MEDS ORDERED: XYLOCAINE VISCOUS 2% 15 ML CUP ONE (16:25)
[2022-07-12 16:39] VITALS: PULSE 73; O2SAT 96
[2022-07-12 17:21] LABS: Appearance Cloudy (Clear); Bacteria None Seen /HPF (None Seen); Bilirubin Negative (Negative); Blood Negative (Negative); Epithelial Cells Rare /HPF (None Seen); Glucose, Urine Negative (Negative); Ketones Trace (Negative); Leukocyte Esterase Negative (Negative); Nitrite Negative (Negative); Ph 5.5 (4.6-8.0); Protein,Urine Dip Trace (Negative); Specific Gravity >=1.030 (1.005-1.030); WBC 0-2 /HPF (0-5)
[2022-07-12 18:00] LABS: ADD URINE CULTURE? NO (NO)
== END 2022-07-12 16:49 | disposition home or self-care (01) ==
LOC: ED 13:30
DX: R10.11 Right upper quadrant pain (principal); R10.13 Epigastric pain; I10 Essential (primary) hypertension; E11.9 Type 2 diabetes mellitus without complications; Z79.891 Long term (current) use of opiate analgesic; Z79.85 Long-term (current) use of injectable non-insulin antidiabetic drugs; Z79.84 Long term (current) use of oral hypoglycemic drugs; Z79.899 Other long term (current) drug therapy
CPT/HCPCS: 36000; 36415; 74176; 80053; 81001; 82150; 83605; 83690; 84484; 85025; 96374; 96375; 99284; J1170; J2405; A9270-GY

== ENCOUNTER 2023-03-01 06:19 | Day surgery (SDC) | payer BC ==
[2023-03-01 07:01] VITALS: RESP 18
[2023-03-01] MEDS ORDERED: Lactated Ringers 1,000 ML IV ONE (07:10)
[2023-03-01] MEDS ORDERED: Lactated Ringers 1,000 ML IV SCH (07:30)
[2023-03-01] MEDS ORDERED: Xylocaine-Mpf 2% 5 Ml Vial ONE (07:56)
[2023-03-01] MEDS ORDERED: DIPRIVAN 200 MG/20 ML IV ONE ×2 (07:57→08:14)
[2023-03-01] MEDS ORDERED: Versed 2 MG/2 ML Injection ONE (07:58)
--- NOTE | 2023-03-01 08:50 | OP ---
SURGERY DATE/TIME: 03/01/2023 0810 PREOPERATIVE DIAGNOSIS: Screening colonoscopy. POSTOPERATIVE DIAGNOSIS: 1) Normal colon. 2) Poor bowel prep. PROCEDURE: Screening colonoscopy. SURGEON: Walter Crow M.D. ANESTHESIA: MAC by Chandler Beckett CRNA. ESTIMATED BLOOD LOSS: None. SPECIMENS: None. DESCRIPTION OF PROCEDURE: After informed written consent was obtained, the patient was taken to the endoscopy suite and placed in the left lateral decubitus position. Anesthesia was titrated to desired level of consciousness and a digital rectal exam showed normal sphincter tone and no internal lesions. The scope was inserted into the rectum and sequentially the entire colonic mucosa was traversed. The level of cecum was reached and verified with direct visualization of the ileocecal valve. Careful mucosal inspection of the entire length of the colon revealed poor bowel prep and multiple areas with liquid and some semisolid stool present. Overall, there were no obvious mucosal abnormalities and the entire length of the colon was able to be traversed and visualization was fair throughout most of the length. Prior to withdrawal retroflexion showed no internal lesions. The scope was removed and the patient was transferred to the recovery room in good condition.
[2023-03-01 09:02] VITALS: O2SAT 100
[2023-03-01 09:33] VITALS: BP 152/98; PULSE 78; TEMP 97.2
== END 2023-03-01 09:45 | disposition home or self-care (01) ==
LOC: SDC 06:19
PROVIDERS: ATTEND Family Medicine
DX: Z12.11 Encounter for screening for malignant neoplasm of colon (principal); E11.9 Type 2 diabetes mellitus without complications
CPT/HCPCS: 82947; J2250; J2704

== ENCOUNTER 2023-03-07 15:05 | Day surgery (SDC) | payer BC ==
[2023-03-07] MEDS ORDERED: BUPIVACAINE 0.5% VIAL IJ ONE (15:06)
[2023-03-07] MEDS ORDERED: Decadron 4 MG INJ IV ONE (15:06)
[2023-03-07] MEDS ORDERED: XYLOCAINE-MPF 1% 5ML SDV IJ ONE (15:06)
[2023-03-07] MEDS ORDERED: DIPRIVAN 200 MG/20 ML IV ONE ×2 (16:48→17:05)
[2023-03-07] MEDS ORDERED: Lactated Ringers 1,000 ML IV ONE (17:55)
--- NOTE | 2023-03-07 20:57 | XRAY ---
Indication: Right C2-C4 RFA. Intraoperative fluoroscopy provided for 46 seconds. 6 digital spot images submitted for interpretation demonstrates posterior needle tips projecting over the right C2-C4 nerve roots. Correlate with intraoperative findings/report.
--- NOTE | 2023-03-08 08:46 | XRAY ---
46 seconds of fluoroscopy was used in surgery for a right C2-C4 RFA.
== END 2023-03-07 17:31 | disposition home or self-care (01) ==
LOC: SDC-PAIN 15:05
PROVIDERS: ATTEND Psychiatry & Neurology Pain Medicine
DX: M47.812 Spondylosis without myelopathy or radiculopathy, cervical region (principal); R73.03 Prediabetes
CPT/HCPCS: 64635; 64636; 72040; 77002; J1100; J2704

== ENCOUNTER → 2023-04-11 | Day surgery (SDC) | payer BC ==
[~2023-04-11] MED LIST: DIPRIVAN 200 MG/20 ML IV ONE; Decadron 4 MG INJ IV ONE; LIDOCAINE HCL 2% 100 MG/5 ML IJ ONE; Lactated Ringers 1,000 ML IV ONE
--- NOTE | 2023-04-11 16:40 | XRAY ---
Indication: Left C2-C4 MBB. Intraoperative fluoroscopy provided for 21 seconds. 2 digital spot images submitted for interpretation demonstrates posterior needle tips projecting over the expected left C2-C4 nerve roots. Correlate with intraoperative findings/report.
--- NOTE | 2023-04-11 16:56 | XRAY ---
21 seconds of fluoroscopy was used in surgery for a left C2-C4 MBB.
== END ==
LOC: SDC-PAIN 14:37
PROVIDERS: ATTEND Psychiatry & Neurology Pain Medicine
DX: M47.812 Spondylosis without myelopathy or radiculopathy, cervical region (principal); R73.03 Prediabetes
CPT/HCPCS: 64490; 64491; 72040; 77002; 82947; J1100; J2704

== ENCOUNTER 2023-05-09 07:02 | Day surgery (SDC) | payer BC ==
[2023-05-09] MEDS ORDERED: BUPIVACAINE 0.5% VIAL IJ ONE (07:03)
[2023-05-09] MEDS ORDERED: DIPRIVAN 200 MG/20 ML IV ONE (08:29)
[2023-05-09] MEDS ORDERED: Lactated Ringers 1,000 ML IV ONE ×2 (08:54→14:04)
--- NOTE | 2023-05-09 11:59 | XRAY ---
Indication: Left C2-C4 MBB. Intraoperative fluoroscopy provided for 33 seconds. 2 digital spot images submitted for interpretation demonstrates posterior needle tips projecting over the expected left C2-C4 nerve roots. Correlate with intraoperative findings/report.
--- NOTE | 2023-05-09 12:33 | XRAY ---
33 seconds of fluoroscopy was used in surgery for a left C2-C4 MBB.
== END 2023-05-09 09:02 | disposition home or self-care (01) ==
LOC: SDC-PAIN 07:02
PROVIDERS: ATTEND Psychiatry & Neurology Pain Medicine
DX: M47.812 Spondylosis without myelopathy or radiculopathy, cervical region (principal); R73.03 Prediabetes
CPT/HCPCS: 64490; 64491; 72040; 77002; 82947; J2704

== ENCOUNTER → 2023-05-23 11:53 | Day surgery (SDC) | payer BC ==
--- NOTE | 2023-05-23 11:40 | XRAY ---
Indication: Chest pain. Comparison: Mar 13, 2020 Portable chest again demonstrates incidental scattered mediastinal/hilar/pulmonary calcified granulomas. Minimal left mid to upper lung subsegmental atelectasis/scarring. No focal infiltrate, consolidation, or large effusion. Heart not enlarged. Bony thorax intact again with osteopenia and minimal scoliosis. Impression: Nonacute chest with chronic features.
[~2023-05-23 11:53] MED LIST changes: +APRESOLINE 20 MG/ML INJ IV ONE; +BUPIVACAINE 0.5% VIAL IJ ONE; +Hydromorphone 1 mg/ml Injection ONE; -LIDOCAINE HCL 2% 100 MG/5 ML IJ ONE; +MORPHINE SULFATE 2 MG INJ IV ONE; +MORPHINE SULFATE 2 MG INJ ONE; +TRANDATE 20 MG/4 ML SYRINGE IV ONE; +XYLOCAINE-MPF 1% 5ML SDV IJ ONE; +Zofran 4 MG/2 ML VIAL ONE
--- NOTE | 2023-05-23 12:01 | ERPHSYRPT ---
- History of Present Illness Time Seen by Provider: 05/23/23 11:59 Source: patient Exam Limitations: no limitations Physician History: This is a 57-year-old white female patient who was sent to the emergency department from outpatient surgery area where she was in the preop area for what appears to be injections for controlling pain. The patient denies shortness of breath patient denies chest pain. However a twelve-lead EKG was performed and there was concern of ST elevation. Although the electronic/computer readout does not state or suggest that there is any ST elevation present. Patient procedure was canceled and patient was sent to our emergency department for further evaluation. Patient has a history of hypertension, hypothyroidism, diabetes and sleep apnea. Timing/Duration: today Associated Symptoms: denies symptoms Allergies/Adverse Reactions: shrimp Allergy (Severe, Verified 05/23/23 12:00) Swelling of Tongue and Lips morphine Adverse Reaction (Mild, Verified 05/23/23 12:00) ITCH Home Medications: Amlodipine Besylate 5 mg [Norvasc 5 mg] 5 mg PO DAILY 04/20/19 [History] Duloxetine HCl [Cymbalta] 60 mg PO DAILY 04/20/19 [History] Liothyronine Sodium [Cytomel] 5 mcg PO DAILY 07/12/22 [History] Metformin HCl Xr 500 mg [Glucophage XR 500 MG] 1,000 mg PO BID 07/12/22 [History] Metoprolol Succinate 25 mg Xl* [Toprol-Xl 25MG Tablets] 25 mg PO DAILY 07/12/22 [History] Pioglitazone 30 mg [Actos 30 MG] 30 mg PO DAILY 07/12/22 [History] Semaglutide [Ozempic] 1 mg SQ WEEKLY 07/12/22 [History] Calcium Carbonate [Calcium] 1 tab PO DAILY 01/29/23 [History] Cholecalciferol (Vitamin D3) [Vitamin D3] 1 cap PO DAILY 01/29/23 [History] Levothyroxine Sodium [Tirosint] 1 cap PO DAILY 01/29/23 [History] Ropinirole HCl 1 tab PO TID 01/29/23 [History] Hx Tetanus, Diphtheria Vaccination/Date Given: Yes Hx Influenza Vaccination/Date Given: No Hx Pneumococcal Vaccination/Date Given: No Travel Risk - International Travel Have you traveled outside of the country in past 3 weeks: No - Coronavirus Screening Are you exhibiting any of the following symptoms?: No Close contact with a COVID-19 positive Pt in past 14-21 Days: No - Vaccine Status Have you recieved a Covid-19 vaccination: Yes Family Literacy Coordinator: Moderna - Vaccination Dates Date of 2cond Vaccination (if applicable): unknown - Review of Systems Constitutional: No Symptoms Eyes: No Symptoms Ears, Nose, & Throat: No Symptoms Respiratory: No Symptoms Cardiac: No Symptoms Abdominal/Gastrointestinal: No Symptoms Genitourinary Symptoms: No Symptoms Musculoskeletal: No Symptoms Skin: No Symptoms Neurological: No Symptoms Psychological: No Symptoms Endocrine: No Symptoms Hematologic/Lymphatic: No Symptoms Immunological/Allergic: No Symptoms All Other Systems: Reviewed and Negative - Past Medical History Pertinent Past Medical History: Yes Neurological History: Other ENT History: No Pertinent History Cardiac History: No Pertinent History Respiratory History: Pneumonia, Sleep Apnea Endocrine Medical History: Hypothyroidism Musculoskeletal History: No Pertinent History GI Medical History: Gallbladder Disease, Ulcer History: No Pertinent History Psycho-Social History: No Pertinent History Female Reproductive Disorders: Other Other Medical History: N/T into medial side of R foot - Past Surgical History Past Surgical History: Yes Neuro Surgical History: No Pertinent History Cardiac: No Pertinent History Respiratory: No Pertinent History Gastrointestinal: Cholecystectomy Genitourinary: No Pertinent History Musculoskeletal: Other Female Surgical History: Section, Hysterectomy, Lumpectomy Other Surgical History: carpal tunnel- bilateral. uterine ablation - Social History Smoking Status: Never smoker Exposure to second hand smoke: No Drug Use: none Patient Lives Alone: No Significant Family History: no pertinent family hx - Nursing Vital Signs Nursing Vital Signs: Initial Vital Signs Pulse Rate 81 05/23/23 12:00 Blood Pressure 182/105 05/23/23 12:00 O2 Sat by Pulse Oximetry 100 05/23/23 12:00 Pain Scale Pain Intensity 8 - Physical Exam General Appearance: no apparent distress, alert Eye Exam: PERRL/EOMI, eyes nml inspection Ears, Nose, Throat Exam: normal ENT inspection, moist mucous membranes Neck Exam: normal inspection, non-tender, supple, full range of motion Respiratory Exam: normal breath sounds, lungs clear, airway intact, No chest tenderness, No respiratory distress Cardiovascular Exam: regular rate/rhythm, normal heart sounds, normal peripheral pulses Gastrointestinal/Abdomen Exam: soft, normal bowel sounds, No tenderness Pelvic Exam: not done Rectal Exam: not done Back Exam: normal inspection, normal range of motion, No CVA tenderness, No vertebral tenderness Extremity Exam: normal inspection, normal range of motion, pelvis stable Neurologic Exam: alert, oriented x 3, cooperative, environmental research project manager II-XII nml as tested, normal mood/affect, nml cerebellar function, nml station & gait, sensation nml Skin Exam: normal color, warm, dry Lymphatic Exam: No adenopathy SpO2 Interpretation: normal O2 Delivery: Room Air - Course Nursing assessment & vital signs reviewed: Yes EKG Interpreted by Me: RATE (85), Sinus Rhythm, NORMAL AXIS, NORMAL INTERVALS, NORMAL QRS, NORMAL ST-T, Other (No acute ischemic changes on today's twelve-lead EKG. This initial twelve-lead EKG was done in the outpatient surgery. There was concern that there was some ST elevation present.) Ordered Tests: Active Orders 24 hr Category Date Time Status EKG-ER Only STAT Care 05/23/23 12:02 Active IV Insertion STAT Care 05/23/23 12:02 Active Pulse Oximetry (ED) STAT Care 05/23/23 12:02 Active CERVICAL SPINE (2 OR 3 VIEW) Routine Exams 05/23/23 15:01 Taken CHEST 1 VIEW (PORTABLE) Stat Exams 05/23/23 11:[address]O GUIDE NEEDLE PLACE-PMG Routine Exams 05/23/23 15:01 Taken HEAD WITHOUT CONTRAST [CT] Stat Exams 05/23/23 13:03 Completed CBC W DIFF Stat Lab 05/23/23 12:00 Completed CMP Stat Lab 05/23/23 12:00 Completed NT PRO BNPII Stat Lab 05/23/23 12:00 Completed POCT GLUCOSE Stat Lab 05/23/23 08:51 Completed TROPONIN Q4H Lab 05/23/23 12:00 Completed TROPONIN Q4H Lab 05/23/23 15:15 Completed TROPONIN Q4H Lab 05/23/23 20:15 Ordered EKG STAT RT 05/23/23 11:29 Completed Medication Summary Discontinued Medications Generic Name Dose Route Start Last Admin Trade Name Freq PRN Reason Stop Dose Admin Hydromorphone HCl 1 mg 05/23/23 14:52 05/23/23 15:08 Hydromorphone 1 Mg/1ml Inj IV 05/23/23 14:53 1 mg STAT ONE Administration Hydromorphone HCl Confirm 05/23/23 15:05 Hydromorphone 1 Mg/1ml Inj Administered 05/23/23 15:06 Dose 1 mg .ROUTE .STK-MED ONE Lactated Ringer's Confirm 05/23/23 12:26 Lactated Ringers Administered 05/23/23 12:27 Dose 1,000 mls @ ud IV .STK-MED ONE Labetalol HCl Confirm 05/23/23 11:25 Labetalol Hcl 20 Mg/4 Ml Disp.Syringe Administered 05/23/23 11:26 Dose 20 mg IV .STK-MED ONE Morphine Sulfate Confirm 05/23/23 11:37 Morphine Sulfate 2 Mg/Ml Inj Administered 05/23/23 11:38 Dose 2 mg .ROUTE .STK-MED ONE Ondansetron HCl 4 mg 05/23/23 14:52 05/23/23 15:07 Ondansetron Hcl 4 Mg/2 Ml Vial IV 05/23/23 14:53 4 mg STAT ONE Administration Ondansetron HCl Confirm 05/23/23 15:05 Ondansetron Hcl 4 Mg/2 Ml Vial Administered 05/23/23 15:06 Dose 4 mg .ROUTE .STK-MED ONE Propofol Confirm 05/23/23 10:33 Propofol 10 Mg/Ml 20ml Vial Administered 05/23/23 10:34 Dose 200 mg IV .STK-MED ONE Propofol Confirm 05/23/23 10:47 Propofol 10 Mg/Ml 20ml Vial Administered 05/23/23 10:48 Dose 200 mg IV .STK-MED ONE Lab/Rad Data: Laboratory Result Diagrams 05/23/23 12:00 05/23/23 12:00 Laboratory Results 05/23/23 05/23/23 05/23/23 Range/Units 15:15 12:00 12:00 WBC (4.0-10.5) x10^3/uL RBC (4.1-5.4) x10^6/uL Hgb (12.0-16.0) g/dL Hct (35-47) % MCV (78-100) fL MCH (26-32) pg MCHC (32-36) g/dL RDW (11.5-14.0) % Plt Count (150-450) x10^3/uL MPV (7.5-11.0) fL Gran % (36.0-66.0) % Immature Gran % (Auto) (0.00-0.4) % Nucleat RBC Rel Count (0.00-0.1) % Eos # (Auto) (0-0.5) x10^3/uL Immature Gran # (Auto) (0.00-0.03) x10^3u/L Absolute Lymphs (auto) (1.0-4.6) x10^3/uL Absolute Monos (auto) (0.0-1.3) x10^3/uL Absolute Nucleated RBC (0.00-0.01) x10^3u/L Lymphocytes % (24.0-44.0) % Monocytes % (0.0-12.0) % Eosinophils % (0.00-5.0) % Basophils % (0.0-0.4) % Absolute Granulocytes (1.4-6.9) x10^3/uL Basophils # (0-0.4) x10^3/uL Sodium 136 L (137-145) mmol/L Potassium 3.8 (3.5-5.1) mmol/L Chloride 107 (98-107) mmol/L Carbon Dioxide 23 (22-30) mmol/L Anion Gap 10.1 (5-15) MEQ/L BUN 17 (7-17) mg/dL Creatinine 0.67 (0.52-1.04) mg/dL Estimated GFR 101.9 ML/MIN Glucose 98 (74-106) mg/dL POC Glucometer (74 to 106) mg/dL Calcium 9.5 (8.4-10.2) mg/dL Total Bilirubin 0.50 (0.2-1.3) mg/dL AST 24 (14-36) U/L ALT 15 (0-35) U/L Alkaline Phosphatase 148 H (38-126) U/L Troponin I < 0.012 < 0.012 (0.000-0.034) ng/mL NT-Pro-B Natriuret Pep 141 (<300) pg/mL Serum Total Protein 6.1 L (6.3-8.2) g/dL Albumin 3.7 (3.5-5.0) g/dL 01/31/24 01/31/24 Range/Units 12:00 08:51 WBC 5.3 (4.0-10.5) x10^3/uL RBC 4.37 (4.1-5.4) x10^6/uL Hgb 12.6 (12.0-16.0) g/dL Hct 37.3 (35-47) % MCV 85.4 (78-100) fL MCH 28.8 (26-32) pg MCHC 33.8 (32-36) g/dL RDW 12.4 (11.5-14.0) % Plt Count 202 (150-450) x10^3/uL MPV 10.8 (7.5-11.0) fL Gran % 54.1 (36.0-66.0) % Immature Gran % (Auto) 0.2 (0.00-0.4) % Nucleat RBC Rel Count 0.0 (0.00-0.1) % Eos # (Auto) 0.11 (0-0.5) x10^3/uL Immature Gran # (Auto) 0.01 (0.00-0.03) x10^3u/L Absolute Lymphs (auto) 1.97 (1.0-4.6) x10^3/uL Absolute Monos (auto) 0.33 (0.0-1.3) x10^3/uL Absolute Nucleated RBC 0.00 (0.00-0.01) x10^3u/L Lymphocytes % 37.0 (24.0-44.0) % Monocytes % 6.2 (0.0-12.0) % Eosinophils % 2.1 (0.00-5.0) % Basophils % 0.4 (0.0-0.4) % Absolute Granulocytes 2.89 (1.4-6.9) x10^3/uL Basophils # 0.02 (0-0.4) x10^3/uL Sodium (137-145) mmol/L Potassium (3.5-5.1) mmol/L Chloride (98-107) mmol/L Carbon Dioxide (22-30) mmol/L Anion Gap (5-15) MEQ/L BUN (7-17) mg/dL Creatinine (0.52-1.04) mg/dL Estimated GFR ML/MIN Glucose (74-106) mg/dL POC Glucometer 82 (74 to 106) mg/dL Calcium (8.4-10.2) mg/dL Total Bilirubin (0.2-1.3) mg/dL AST (14-36) U/L ALT (0-35) U/L Alkaline Phosphatase (38-126) U/L Troponin I (0.000-0.034) ng/mL NT-Pro-B Natriuret Pep (<300) pg/mL Serum Total Protein (6.3-8.2) g/dL Albumin (3.5-5.0) g/dL - Progress Progress: unchanged, re-examined Progress Note: 05/23/23 12:07 This patient's medical issue is 1 of moderate complexity. The level complex in the workup performed is based on review of the patient's past medical history, review of the patient's medication list, review of patient drug allergy list, history present illness and physical findings on examination. We repeated the twelve-lead EKG and again the twelve-lead EKG that was performed on 05/23/2023 at 1158, in my review does not show any acute ST elevation. Heart rate is 76 bpm and is normal sinus rhythm. The QRS is normal. The intervals are normal. The axis deviation is normal. The 2 twelve-lead EKGs were compared to that twelve- lead EKG that was done on 02/04/2018. There are no changes when the 3 twelve- lead EKGs are compared to one another. We will perform a CBC, CMP, BNP and a troponin level. 05/23/23 14:01 CT scan of the head without contrast was interpreted by radiologist and I reviewed the impression. Impression states normal CT scan of the head without contrast 05/23/23 14:52 Patient states that she has had Dilaudid and morphine without any adverse effects. In fact, patient states that she was given morphine earlier today. I interpreted the patient's laboratory data results. There is no evidence of any acute, emergent medical issue based on the patient's current laboratory data results. We are waiting for a 3-hour troponin level to be drawn at 1500. If this level is normal she will be discharged to home. 05/23/23 16:09 Patient's headache has resolved. Patient does not have chest pain at this time. She has had 2 twelve-lead EKGs do not show any acute ischemic changes. She has had 2 troponin levels which were also negative. Patient be discharged home with instruction to follow-up with her primary care provider with possible referral to senior advisor if indicated. Counseled pt/family regarding: lab results, diagnosis, need for follow-up, rad results Medical Desision Making - Independent Historian Additional History obtained from: Spouse - Diagnostic Testing Diagnostic test were ordered, analyzed, and reviewed by me: Yes Radiological Interpretation: Reviewed by me - Risk of complications Low Risk: Low risk of morbidity from additional dx testing or treatment - Departure Departure Disposition: Home Clinical Impression: Nonspecific chest pain, Headache Condition: Stable Critical Care Time: No Referrals: NURY HINTON DO [Primary Care Provider] - Follow up/PCP as directed Additional Instructions: Drink plenty of fluids follow your postoperative orders. Resume your medications as the postoperative orders indicate. Call your primary care provider tomorrow, 05/24/2023 to make arrangements for further evaluation and management within the next 3 to 5 days.
[2023-05-23 12:08] LABS: Absolute Neutrophil Ct (ANC) 2.89 x10^3/uL (1.4-6.9); BASOPHIL % 0.4 % (0.0-0.4); Basophil (Absolute #) 0.02 x10^3/uL (0-0.4); Eosinophil % 2.1 % (0.00-5.0); Eosinophil (Absolute #) 0.11 x10^3/uL (0-0.5); Hematocrit 37.3 % (35-47); Hemoglobin 12.6 g/dL (12.0-16.0); IMMATURE GRAN # 0.01 x10^3u/L (0.00-0.03); IMMATURE GRAN % 0.2 % (0.00-0.4); Lymphocyte (Absolute #) 1.97 x10^3/uL (1.0-4.6); Mean Cell Volume 85.4 fL (78-100); Mean Corpuscular Hemoglobin 28.8 pg (26-32); Mean Corpuscular Hgb Concent. 33.8 g/dL (32-36); Mean Platelet Volume 10.8 fL (7.5-11.0); Monocyte (Absolute #) 0.33 x10^3/uL (0.0-1.3); Monocytes % 6.2 % (0.0-12.0); Neutrophil % 54.1 % (36.0-66.0); Platelet Count 202 x10^3/uL (150-450); Red Blood Count 4.37 x10^6/uL (4.1-5.4); Red Cell Distribution Width 12.4 % (11.5-14.0); White Blood Count 5.3 x10^3/uL (4.0-10.5)
[2023-05-23 12:27] LABS: ALBUMIN 3.7 g/dL (3.5-5.0); ANION GAP 10.1 MEQ/L (5-15); BILIRUBIN,TOTAL 0.5 mg/dL (0.2-1.3); Calcium 9.5 mg/dL (8.4-10.2); Creatinine 1 0.67 mg/dL (0.52-1.04); EST GLOMERULAR FILTRATION RATE 101.9 ML/MIN; Potassium 3.8 mmol/L (3.5-5.1); Total Protein 6.1 g/dL (6.3-8.2)
[2023-05-23 12:30] VITALS: TEMP 97.6
--- NOTE | 2023-05-23 13:36 | XRAY ---
Indication: Headache. Hypertension. Multiple contiguous axial images obtained through the head without contrast. Comparison: August 31, 2018 new Normal appearing brain parenchyma, ventricles, and bony calvarium. Visualized paranasal sinuses and mastoid air cells are clear. Impression: Continued normal CT head without contrast exam.
[2023-05-23] MEDS: Zofran 4 MG/2 ML VIAL IV ONE (15:07)
[2023-05-23] MEDS: Hydromorphone 1 mg/ml Injection IV ONE (15:08)
[2023-05-23 15:13] VITALS: RESP 14
[2023-05-23 16:42] VITALS: BP 134/70; PULSE 87; O2SAT 97
--- NOTE | 2023-05-24 09:15 | XRAY ---
29 seconds of fluoroscopy was used in surgery for a left C2-C4 RFA.
--- NOTE | 2023-05-24 09:17 | XRAY ---
Indication: Left C2-C4 RFA. Intraoperative fluoroscopy provided for 29 seconds. 4 digital spot images submitted for interpretation demonstrates posterior needle tips projecting over the expected left C2-C4 nerve roots. Correlate with intraoperative findings/report.
== END | disposition home or self-care (01) ==
LOC: SDC-PAIN 08:31 → EDSTATUS 10:41 → SDC-PAIN 11:53 → EDSTATUS 11:55 → ED 11:55
PROVIDERS: ATTEND Psychiatry & Neurology Pain Medicine
DX: M47.812 Spondylosis without myelopathy or radiculopathy, cervical region (principal); R73.03 Prediabetes; I10 Essential (primary) hypertension; Z79.899 Other long term (current) drug therapy
CPT/HCPCS: 36000; 36415; 64633; 64634; 70450; 71045; 72040; 77002; 80053; 82947; 83880; 84484; 85025; 93005; 94760; 96374; 96375; 99284; J0360; J1100; J1170; J2270; J2405; J2704

== ENCOUNTER 2023-05-23 11:54 | Emergency (ER) | payer BC | END 2023-05-23 16:43 | disposition home or self-care (01) | LOC: ED 11:54 | DX: R07.9 Chest pain, unspecified (principal); R51.9 Headache, unspecified; R94.31 Abnormal electrocardiogram [ECG] [EKG]; I10 Essential (primary) hypertension; E11.9 Type 2 diabetes mellitus without complications; Z79.84 Long term (current) use of oral hypoglycemic drugs; Z79.85 Long-term (current) use of injectable non-insulin antidiabetic drugs; Z79.899 Other long term (current) drug therapy | CPT/HCPCS: 36000; 93005; 94760; 96374; 96375; 99284 ==

== ENCOUNTER 2023-10-29 05:02 | Emergency (ER) | payer BC ==
[2023-10-29 05:22] VITALS: TEMP 97.2
[2023-10-29] MEDS ORDERED: Sodium Chloride 0.9% 1000 ML 1,000 ML ONE ×2 (05:31→07:51)
[2023-10-29] MEDS ORDERED: Zofran 4 MG/2 ML VIAL ONE (05:31)
[2023-10-29] MEDS ORDERED: Hydromorphone 1 mg/ml Injection ONE ×2 (05:31→06:30)
--- NOTE | 2023-10-29 05:31 | ERPHSYRPT ---
- History of Present Illness Historian: patient Exam Limitations: no limitations Patient Subjective Stated Complaint: severe abd cramping that started around midnight, pt states she has been having this stomach pain for months and has seen her PCP and a GI specialist and they could not find anything wrong. Triage Nursing Assessment: pt ambulatory to bed by self with steady gait, pt alert and oriented x3, skin pwd, pt c/o severe abd cramping that started around midnight and woke pt up from her sleep, pt denies any n/v/d, pt moaning and grasping abdomen, pt restless, bowel sounds active in all quadrants. Hx Tetanus, Diphtheria Vaccination/Date Given: Yes Hx Influenza Vaccination/Date Given: No Hx Pneumococcal Vaccination/Date Given: No <HOLDEN JACOBS - Last Filed: 10/29/23 06:54> <MARY GRIFFIN - Last Filed: 10/29/23 07:46> - History of Present Illness Time Seen by Provider: 10/29/23 05:21 Physician History: For the past 5 hours 20 minutes pt has had constant sharp 10/10 generalized abdominal pain and nausea; LBM was today & wnl. Pt denies chest pain, shortness of air, fever, vomiting. (HOLDEN JACOBS) Allergies/Adverse Reactions: shrimp Allergy (Severe, Verified 10/29/23 05:13) Swelling of Tongue and Lips morphine Adverse Reaction (Mild, Verified 10/29/23 05:13) ITCH Home Medications: Amlodipine Besylate 5 mg [Norvasc 5 mg] 5 mg PO DAILY 04/20/19 [History] Semaglutide [Ozempic] 2 mg SQ WEEKLY 07/12/22 [History] Calcium Carbonate [Calcium] 2 tab PO DAILY 01/29/23 [History] Cholecalciferol (Vitamin D3) [Vitamin D3] 1 cap PO DAILY 01/29/23 [History] Biotin 5,000 mcg PO DAILY 10/29/23 [History] Cyanocobalamin/Folic Acid [Vitamin W39-Gvkvc Acid Tablet] 1 tab PO DAILY 10/29/23 [History] Escitalopram Oxalate [Lexapro] 10 mg PO DAILY 10/29/23 [History] Levothyroxine Sodium [Tirosint] 1 tab PO DAILY 10/29/23 [History] PANTOPRAZOLE 40 mg Tablet [Protonix 40MG Tablet] 40 mg PO DAILY 10/29/23 [History] Travel Risk - International Travel Have you traveled outside of the country in past 3 weeks: No - Emerging Infectious Disease Are you exhibiting symptoms associated with any current EIDs: Yes Symptoms: Abdominal Pain <HOLDEN JACOBS - Last Filed: 10/29/23 06:54> - Review of Systems Constitutional: No Fever Respiratory: No Dyspnea Cardiac: No Chest Pain Abdominal/Gastrointestinal: Abdominal Pain, Nausea, No Vomiting Neurological: No Headache <HOLDEN JACOBS - Last Filed: 10/29/23 06:54> - Past Medical History Pertinent Past Medical History: Yes Neurological History: Other ENT History: No Pertinent History Cardiac History: No Pertinent History Respiratory History: Pneumonia, Sleep Apnea Endocrine Medical History: Hypothyroidism Musculoskeletal History: No Pertinent History GI Medical History: Gallbladder Disease, Ulcer History: No Pertinent History Psycho-Social History: No Pertinent History Female Reproductive Disorders: Other Other Medical History: N/T into medial side of R foot - Past Surgical History Past Surgical History: Yes Neuro Surgical History: No Pertinent History Cardiac: No Pertinent History Respiratory: No Pertinent History Gastrointestinal: Cholecystectomy Genitourinary: No Pertinent History Musculoskeletal: Other Female Surgical History: Section, Hysterectomy, Lumpectomy Other Surgical History: carpal tunnel- bilateral. uterine ablation Significant Family History: no pertinent family hx - Social History Smoking Status: Never smoker Exposure to second hand smoke: No Drug Use: none Patient Lives Alone: No - Social Determinants of Health Will the patient participate in the screening: Yes Do you worry about a steady place to live?: No Do you have any problems with any of the following?: No known problems In the past 12 months,have you had to go without utilities?: No Transportation Issues: No Has anyone in your support network made you feel unsafe?: No Have you or anyone in your house had to go without enough: No <HOLDEN JACOBS - Last Filed: 10/29/23 06:54> - Physical Exam General Appearance: alert Eye Exam: PERRL/EOMI Ears, Nose, Throat Exam: TMs normal, pharynx normal Neck Exam: normal inspection Respiratory Exam: lungs clear, airway intact Cardiovascular Exam: normal heart sounds Gastrointestinal/Abdomen Exam: No normal bowel sounds (B.S. moderately hyperactive and normotonic) Extremity Exam: No pedal edema Neurologic Exam: alert, cooperative Skin Exam: warm, dry, No cyanosis SpO2 Interpretation: normal SpO2: 98 O2 Delivery: Room Air <HOLDEN JACOBS - Last Filed: 10/29/23 06:54> - Nursing Vital Signs Nursing Vital Signs: Initial Vital Signs Temperature 97.2 F 10/29/23 05:13 Pulse Rate 86 10/29/23 05:13 Respiratory Rate 18 10/29/23 05:13 Blood Pressure 197/114 10/29/23 05:13 O2 Sat by Pulse Oximetry 98 10/29/23 05:13 Pain Scale Pain Intensity 0 Ordered Tests: Active Orders 24 hr Category Date Time Status IV Insertion STAT Care 10/29/23 05:26 Active Oxygen-ED Only Nasal Cannula 2 lpm Care 10/29/23 06:40 Active ABDOMEN AND PELVIS W/0 CONTRAS [CT] Stat Exams 10/29/23 05:26 Completed AMYLASE Stat Lab 10/29/23 05:04 Completed CBC W DIFF Stat Lab 10/29/23 05:04 Completed CMP Stat Lab 10/29/23 05:04 Completed CULTURE,URINE Stat Lab 10/29/23 07:22 Received HCG QUALITATIVE, SERUM Stat Lab 10/29/23 05:04 Completed LIPASE Stat Lab 10/29/23 05:04 Completed MAGNESIUM Stat Lab 10/29/23 05:04 Completed UA W/RFX UR CULTURE Stat Lab 10/29/23 07:22 Completed Medication Summary Generic Name Dose Route Start Last Admin Trade Name Freq PRN Reason Stop Dose Admin Sodium Chloride 1,000 mls @ 100 mls/hr 10/29/23 05:30 10/29/23 07:32 Sodium Chloride 0.9% 1000 Ml IV 11/28/23 05:29 999 mls/hr .Q10H REGINA Infusion Sodium Chloride 1,000 mls @ 999 mls/hr 10/29/23 06:53 Sodium Chloride 0.9% 1000 Ml IV 10/29/23 07:53 .Q1H1M STA Discontinued Medications Generic Name Dose Route Start Last Admin Trade Name Freq PRN Reason Stop Dose Admin Hydromorphone HCl 1 mg 10/29/23 05:26 10/29/23 05:36 Hydromorphone 1 Mg/1ml Inj IV 10/29/23 05:27 1 mg STAT ONE Administration Hydromorphone HCl Confirm 10/29/23 05:31 Hydromorphone 1 Mg/1ml Inj Administered 10/29/23 05:32 Dose 1 mg .ROUTE .STK-MED ONE Hydromorphone HCl Confirm 10/29/23 06:30 Hydromorphone 1 Mg/1ml Inj Administered 10/29/23 06:31 Dose 1 mg .ROUTE .STK-MED ONE Hydromorphone HCl 1 mg 10/29/23 06:53 10/29/23 06:38 Hydromorphone 1 Mg/1ml Inj IV 10/29/23 06:54 1 mg STAT ONE Administration Ondansetron HCl 4 mg 10/29/23 05:26 10/29/23 05:35 Ondansetron Hcl 4 Mg/2 Ml Vial IV 10/29/23 05:27 4 mg STAT ONE Administration Ondansetron HCl Confirm 10/29/23 05:31 Ondansetron Hcl 4 Mg/2 Ml Vial Administered 10/29/23 05:32 Dose 4 mg .ROUTE .STK-MED ONE Lab/Rad Data: Laboratory Result Diagrams 10/29/23 05:04 10/29/23 05:04 Laboratory Results 10/29/23 10/29/23 10/29/23 Range/Units 07:22 05:04 05:04 WBC (3.98-10.04) x10^3/uL RBC (3.93-5.22) x10^6/uL Hgb (11.2-15.7) g/dL Hct (34.1-44.9) % MCV (79.4-94.8) fL MCH (25.6-32.2) pg MCHC (32.2-35.5) g/dL RDW (11.7-14.4) % Plt Count (182-369) x10^3/uL MPV (9.4-12.3) fL Gran % (34.0-71.1) % Immature Gran % (Auto) (0.001-0.429) % Nucleat RBC Rel Count (0.00-0.2) % Eos # (Auto) (0.04-0.36) x10^3/uL Immature Gran # (Auto) (0.001-0.031) x10^3u/L Absolute Lymphs (auto) (1.18-3.74) x10^3/uL Absolute Monos (auto) (0.24-0.86) x10^3/uL Absolute Nucleated RBC (0.00-0.012) x10^3u/L Lymphocytes % (19.3-51.7) % Monocytes % (4.7-12.5) % Eosinophils % (0.7-5.8) % Basophils % (0.1-1.2) % Absolute Granulocytes (1.56-6.13) x10^3/uL Basophils # (0.01-0.08) x10^3/uL Sodium 139 (135-145) mmol/L Potassium 3.8 (3.5-5.1) mmol/L Chloride 106 (98-107) mmol/L Carbon Dioxide 24 (22-30) mmol/L Anion Gap 13.5 (5-15) MEQ/L BUN 24 H (7-17) mg/dL Creatinine 0.98 (0.52-1.04) mg/dL Estimated GFR 66.9 ML/MIN Glucose 97 (74-106) mg/dL Calcium 9.6 (8.4-10.2) mg/dL Magnesium 1.8 (1.6-2.3) mg/dL Total Bilirubin 0.40 (0.2-1.3) mg/dL AST 43 H (14-36) U/L ALT 26 (0-35) U/L Alkaline Phosphatase 158 H (38-126) U/L Serum Total Protein 6.9 (6.3-8.2) g/dL Albumin 4.1 (3.5-5.0) g/dL Amylase 142 H (30-110) U/L Lipase 197 (23-300) U/L Serum HCG, Qual NEGATIVE (NEGATIVE) Urine Color Yellow (Yellow) Urine Appearance Cloudy A (Clear) Urine pH 5.0 (4.6-8.0) Ur Specific [place] 1.025 (1.005-1.030) Urine Protein Negative (Negative) Urine Glucose (UA) Negative (Negative) mg/dL Urine Ketones Trace A (Negative) Urine Blood Small A (Negative) Urine Nitrite Negative (Negative) Urine Bilirubin Negative (Negative) Urine Urobilinogen 1.0 A (0.2) mg/dL Ur Leukocyte Esterase Negative (Negative) U Hyaline Cast (Auto) NONE SEEN (0-2) /LPF Urine Microscopic RBC 21-50 A (0-5) /HPF Urine Microscopic WBC 3-5 (0-5) /HPF Ur Epithelial Cells Rare (None Seen) /HPF Urine Bacteria Many A (None Seen) /HPF Urine Culture Reflexed YES (NO) 10/29/23 Range/Units 05:04 WBC 5.6 (3.98-10.04) x10^3/uL RBC 4.80 (3.93-5.22) x10^6/uL Hgb 13.5 (11.2-15.7) g/dL Hct 39.6 (34.1-44.9) % MCV 82.5 (79.4-94.8) fL MCH 28.1 (25.6-32.2) pg MCHC 34.1 (32.2-35.5) g/dL RDW 12.7 (11.7-14.4) % Plt Count 250 (182-369) x10^3/uL MPV 9.5 (9.4-12.3) fL Gran % 52.1 (34.0-71.1) % Immature Gran % (Auto) 0.2 (0.001-0.429) % Nucleat RBC Rel Count 0.0 (0.00-0.2) % Eos # (Auto) 0.11 (0.04-0.36) x10^3/uL Immature Gran # (Auto) 0.01 (0.001-0.031) x10^3u/L Absolute Lymphs (auto) 2.16 (1.18-3.74) x10^3/uL Absolute Monos (auto) 0.39 (0.24-0.86) x10^3/uL Absolute Nucleated RBC 0.00 (0.00-0.012) x10^3u/L Lymphocytes % 38.4 (19.3-51.7) % Monocytes % 6.9 (4.7-12.5) % Eosinophils % 2.0 (0.7-5.8) % Basophils % 0.4 (0.1-1.2) % Absolute Granulocytes 2.93 (1.56-6.13) x10^3/uL Basophils # 0.02 (0.01-0.08) x10^3/uL Sodium (135-145) mmol/L Potassium (3.5-5.1) mmol/L Chloride (98-107) mmol/L Carbon Dioxide (22-30) mmol/L Anion Gap (5-15) MEQ/L BUN (7-17) mg/dL Creatinine (0.52-1.04) mg/dL Estimated GFR ML/MIN Glucose (74-106) mg/dL Calcium (8.4-10.2) mg/dL Magnesium (1.6-2.3) mg/dL Total Bilirubin (0.2-1.3) mg/dL AST (14-36) U/L ALT (0-35) U/L Alkaline Phosphatase (38-126) U/L Serum Total Protein (6.3-8.2) g/dL Albumin (3.5-5.0) g/dL Amylase (30-110) U/L Lipase (23-300) U/L Serum HCG, Qual (NEGATIVE) Urine Color (Yellow) Urine Appearance (Clear) Urine pH (4.6-8.0) Ur Specific [place] (1.005-1.030) Urine Protein (Negative) Urine Glucose (UA) (Negative) mg/dL Urine Ketones (Negative) Urine Blood (Negative) Urine Nitrite (Negative) Urine Bilirubin (Negative) Urine Urobilinogen (0.2) mg/dL Ur Leukocyte Esterase (Negative) U Hyaline Cast (Auto) (0-2) /LPF Urine Microscopic RBC (0-5) /HPF Urine Microscopic WBC (0-5) /HPF Ur Epithelial Cells (None Seen) /HPF Urine Bacteria (None Seen) /HPF Urine Culture Reflexed (NO) - Progress Counseled pt/family regarding: lab results, diagnosis, need for follow-up, rad results <MARY GRIFFIN - Last Filed: 10/29/23 07:46> - Progress Progress Note: 10/29/23 07:32 Care of this patient was transferred to al at shift change (7 AM). I int erpreted the patient's laboratory data results. The urinalysis is still pending. CT scan of the abdomen pelvis without contrast was interpreted by the radiologist and I reviewed the impression. The impression states prominent fluid-filled ascending colon and cecum. No definite evidence of mechanical obstruction. No CT evidence of acute appendicitis. Large duodenal diverticulum first portion of the duodenum. (MARY GRIFFIN) - Departure Critical Care Time: No <HOLDEN JACOBS - Last Filed: 10/29/23 06:54> - Departure Departure Disposition: Home <MARY GRIFFIN - Last Filed: 10/29/23 07:46> - Departure Clinical Impression: Abdominal pain, Nausea, Duodenal diverticulum Condition: Stable Referrals: NURY HINTON DO [Primary Care Provider] - Follow up/PCP as directed Additional Instructions: Avoid fatty greasy spicy foods. Drink plenty of clear liquids before advancing your diet. Take your antibiotics as prescribed. Call your prescribing provider and your fingernail technician today to make them aware of your symptoms and visit to the emergency department and to arrange follow-up and management of your pain as an outpatient. Prescriptions: Ondansetron ODT 4 MG [Zofran Odt 4 mg] 4 mg PO Q6H PRN PRN #10 tablet PRN Reason: Vomiting Metronidazole 500 mg [Flagyl 500 MG] 500 mg PO TID #21 tablet
[2023-10-29] MEDS: Zofran 4 MG/2 ML VIAL IV ONE (05:35)
[2023-10-29] MEDS: Sodium Chloride 0.9% 1000 ML 1,000 ML IV SCH (05:36)
[2023-10-29] MEDS: Hydromorphone 1 mg/ml Injection IV ONE ×2 (05:36→06:38)
[2023-10-29 05:38] LABS: Absolute Neutrophil Ct (ANC) 2.93 x10^3/uL (1.56-6.13); BASOPHIL % 0.4 % (0.1-1.2); Basophil (Absolute #) 0.02 x10^3/uL (0.01-0.08); Eosinophil (Absolute #) 0.11 x10^3/uL (0.04-0.36); Hematocrit 39.6 % (34.1-44.9); Hemoglobin 13.5 g/dL (11.2-15.7); IMMATURE GRAN # 0.01 x10^3u/L (0.001-0.031); IMMATURE GRAN % 0.2 % (0.001-0.429); Lymphocyte (Absolute #) 2.16 x10^3/uL (1.18-3.74); Lymphocytes % 38.4 % (19.3-51.7); Mean Cell Volume 82.5 fL (79.4-94.8); Mean Corpuscular Hemoglobin 28.1 pg (25.6-32.2); Mean Corpuscular Hgb Concent. 34.1 g/dL (32.2-35.5); Mean Platelet Volume 9.5 fL (9.4-12.3); Monocyte (Absolute #) 0.39 x10^3/uL (0.24-0.86); Monocytes % 6.9 % (4.7-12.5); Neutrophil % 52.1 % (34.0-71.1); Platelet Count 250 x10^3/uL (182-369); Red Cell Distribution Width 12.7 % (11.7-14.4); White Blood Count 5.6 x10^3/uL (3.98-10.04)
[2023-10-29 05:49] LABS: HCG SERUM TEST NEGATIVE (NEGATIVE)
[2023-10-29 05:51] LABS: ALBUMIN 4.1 g/dL (3.5-5.0); ANION GAP 13.5 MEQ/L (5-15); BILIRUBIN,TOTAL 0.4 mg/dL (0.2-1.3); Calcium 9.6 mg/dL (8.4-10.2); Creatinine 1 0.98 mg/dL (0.52-1.04); EST GLOMERULAR FILTRATION RATE 66.9 ML/MIN; MAGNESIUM 1.8 mg/dL (1.6-2.3); Potassium 3.8 mmol/L (3.5-5.1); Total Protein 6.9 g/dL (6.3-8.2)
--- NOTE | 2023-10-29 07:14 | XRAY ---
CLINICAL HISTORY: abdominal pain COMPARISON: None. TECHNIQUE: CT of the abdomen and pelvis was performed with axial images as well as sagittal and coronal reconstruction images without intravenous contrast. One of the following dose reduction techniques was utilized for this exam: Automated exposure control, adjustment of the mA and/or kV according to patient size, and use of iterative reconstruction. Total CTDI: 8.53 mGy, DLP: 436.96 mGy-cm. FINDINGS: Abdomen: Prominent fluid-filled ascending colon and cecum ( reaching about 7.5 cm in diameter). No definite evidence of rectal or small bowel dilatation. No abrupt transition point is seen. No CT evidence of definite sizable masses could be detected. The appendix is unremarkable. Average-sized liver. No focal or diffuse parenchymal abnormality. The intrahepatic biliary radicals and the bile ducts are normal. The pancreas and adrenal glands are unremarkable. Few scattered splenic calcific foci; likely post-granulomatous. The kidneys are unremarkable. They are normal in size and shape. No calculi or hydronephrosis. The gallbladder is surgically removed. Large 1st duodenal part diverticulum is noted. A dilated stomach is noted. There is no evidence of significant enlargement of the mesenteric or retroperitoneal lymph nodes. Scanned lung bases show bilateral scattered calcified pulmonary; likely benign (post granulomatous). Pelvis: The urinary bladder is unremarkable. The uterus is surgically removed. No evidence of pelvic lymphadenopathy. The osseous structures in the pelvis, lower rib cage, and lumbar spine show no abnormality. No lytic or sclerotic bone lesions. IMPRESSION: 1. Prominent fluid-filled ascending colon and cecum ( cecum reaching about 7.5 cm in diameter). No definite evidence of mechanical intestinal obstruction. Clinical correlation and follow-up are advised. 2. No CT evidence of acute appendicitis. 3. Large 1st duodenal part diverticulum. "[facility] ER was called at [phone] at 6:07 AM CONSULTING ANALYST, 10/29/2023 and results were verbally communicated to Ranjan Jc." Electronically Signed by: Louis Miller MD. (10/29/2023 07:09:29 EDT)
[2023-10-29 07:32] LABS: Appearance Cloudy (Clear); Bacteria Many /HPF (None Seen); Bilirubin Negative (Negative); Blood Small (Negative); Epithelial Cells Rare /HPF (None Seen); Glucose, Urine Negative (Negative); Hyaline Casts NONE SEEN /LPF (0-2); Ketones Trace (Negative); Leukocyte Esterase Negative (Negative); Nitrite Negative (Negative); Protein,Urine Dip Negative (Negative); RBC 21-50 /HPF (0-5); Specific Gravity 1.025 (1.005-1.030)
[2023-10-29 07:40] LABS: ADD URINE CULTURE? YES (NO)
[2023-10-29] MEDS: Sodium Chloride 0.9% 1000 ML 1,000 ML IV STA (07:57)
[2023-10-29 08:13] VITALS: RESP 16
[2023-10-29] MEDS ORDERED: NORCO 5/325 MG ONE (08:29)
[2023-10-29] MEDS: NORCO 5/325 MG PO ONE (08:31)
[2023-10-29 08:49] VITALS: BP 132/73; PULSE 66; O2SAT 98
== END 2023-10-29 08:55 | disposition home or self-care (01) ==
LOC: ED 05:02
DX: R10.84 Generalized abdominal pain (principal); R11.0 Nausea; K57.10 Diverticulosis of small intestine without perforation or abscess without bleeding; Z79.85 Long-term (current) use of injectable non-insulin antidiabetic drugs; Z79.899 Other long term (current) drug therapy
CPT/HCPCS: 36000; 36415; 74176; 80053; 81001; 82150; 83690; 83735; 84703; 85025; 87086; 96374; 96375; 96376; 99284; J1170; J2405; A9270-GY

== ENCOUNTER 2023-12-05 14:20 | Day surgery (SDC) | payer BC ==
[2023-12-05] MEDS ORDERED: LIDOCAINE HCL 1% 50 MG/5 ML VL PF IJ ONE (14:21)
[2023-12-05] MEDS ORDERED: BUPIVACAINE 0.5% VIAL IJ ONE (14:21)
[2023-12-05] MEDS ORDERED: Depo-Medrol 40 MG/ML IM ONE (14:21)
--- NOTE | 2023-12-05 17:26 | XRAY ---
Indication: Bilateral SI joint injection. Intraoperative fluoroscopy provided for 17 seconds. 2 digital spot image submitted for interpretation demonstrates posterior needle tips projecting over expected left and right SI joint. Small amount of contrast injected for needle tip placement. Correlate with intraoperative findings/report.
--- NOTE | 2023-12-05 17:28 | XRAY ---
17 seconds of fluoroscopy was used in surgery for a bilateral sacroiliac joint injection.
== END 2023-12-05 16:30 | disposition home or self-care (01) ==
LOC: SDC-PAIN 14:20
PROVIDERS: ATTEND Psychiatry & Neurology Pain Medicine
DX: M46.1 Sacroiliitis, not elsewhere classified (principal); R73.03 Prediabetes
CPT/HCPCS: 27096; 72202; 77002; 82947; J2001; Q9966; G0260

== ENCOUNTER 2024-01-31 21:31 | Observation (INO) | payer BC ==
[2024-01-31 22:49] LABS: Appearance Clear (Clear); Bacteria None Seen /HPF (None Seen); Bilirubin Negative (Negative); Blood NHT (Negative); Epithelial Cells None Seen /HPF (None Seen); Glucose, Urine Negative (Negative); Ketones Negative (Negative); Leukocyte Esterase Negative (Negative); Nitrite Negative (Negative); Protein,Urine Dip Trace (Negative); Specific Gravity >=1.030 (1.005-1.030); WBC 0-2 /HPF (0-5)
[2024-01-31] MEDS ORDERED: Zofran 4 MG/2 ML VIAL ONE (22:50)
[2024-01-31] MEDS ORDERED: Hydromorphone 1 mg/ml Injection ONE (22:50)
[2024-01-31] MEDS: Zofran 4 MG/2 ML VIAL IV ONE (22:51)
[2024-01-31] MEDS: Hydromorphone 1 mg/ml Injection IV ONE (22:52)
[2024-01-31 22:54] LABS: Absolute Neutrophil Ct (ANC) 3.26 x10^3/uL (1.56-6.13); BASOPHIL % 0.5 % (0.1-1.2); Basophil (Absolute #) 0.03 x10^3/uL (0.01-0.08); Eosinophil % 1.5 % (0.7-5.8); Eosinophil (Absolute #) 0.09 x10^3/uL (0.04-0.36); Hematocrit 34.8 % (34.1-44.9); Hemoglobin 11.8 g/dL (11.2-15.7); IMMATURE GRAN # 0.01 x10^3u/L (0.001-0.031); IMMATURE GRAN % 0.2 % (0.001-0.429); Lymphocyte (Absolute #) 2.23 x10^3/uL (1.18-3.74); Lymphocytes % 36.6 % (19.3-51.7); Mean Cell Volume 84.7 fL (79.4-94.8); Mean Corpuscular Hemoglobin 28.7 pg (25.6-32.2); Mean Corpuscular Hgb Concent. 33.9 g/dL (32.2-35.5); Mean Platelet Volume 9.5 fL (9.4-12.3); Monocyte (Absolute #) 0.47 x10^3/uL (0.24-0.86); Monocytes % 7.7 % (4.7-12.5); Neutrophil % 53.5 % (34.0-71.1); Platelet Count 222 x10^3/uL (182-369); Red Blood Count 4.11 x10^6/uL (3.93-5.22); Red Cell Distribution Width 12.9 % (11.7-14.4); White Blood Count 6.1 x10^3/uL (3.98-10.04)
[2024-01-31 23:14] LABS: ALBUMIN 3.8 g/dL (3.5-5.0); ANION GAP 13.9 MEQ/L (5-15); BILIRUBIN,TOTAL 0.4 mg/dL (0.2-1.3); Calcium 9.1 mg/dL (8.4-10.2); Creatinine 1 1.05 mg/dL (0.52-1.04); EST GLOMERULAR FILTRATION RATE 61.6 ML/MIN; Potassium 3.5 mmol/L (3.5-5.1); Total Protein 6.4 g/dL (6.3-8.2)
--- NOTE | 2024-01-31 23:57 | ERPHSYRPT ---
- History of Present Illness Time Seen by Provider: 01/31/24 21:32 Historian: patient Exam Limitations: no limitations Patient Subjective Stated Complaint: c/o of epigastric pain Triage Nursing Assessment: Pt brought to ED by with c/o of epigastric pain. Patient stated that this has occured in the past and the pain started 2 hours ago became more intense within the last hour. Rated pain 8/10 and states it radiated to the back. patient's stated she had a colonoscopy done last week and has an ulstrasound scheduled on Sunday02/04/2024.Patient gait steady, hypertensive, skin wnd, pt doesn't appear to be in any distress at this time. Physician History: 58 years old female with history of chronic abdominal pain for quite some time coming in episodes presented in the ER with 3 hours history of sudden onset upper abdominal pain in the epigastric area with progressive worsening and currently rates 8/10 intensity with no significant aggravating or relieving factors. Denies any chest pain. No nausea or vomiting. Denies any associated constipation or diarrhea. Reports having similar symptoms multiple times in the past with thorough workup done including multiple CAT scans which are negative. Patient does have history of cholecystectomy. Reports having colonoscopy done last week as scheduled for ultrasound in 3 days. Allergies/Adverse Reactions: shrimp Allergy (Severe, Verified 10/29/23 05:13) Swelling of Tongue and Lips morphine Adverse Reaction (Mild, Verified 01/31/24 21:57) ITCH Home Medications: Amlodipine Besylate 5 mg [Norvasc 5 mg] 5 mg PO HS 04/20/19 [History] Semaglutide [Ozempic] 2 mg SQ WEEKLY 07/12/22 [History] Calcium Carbonate [Calcium] 2 tab PO HS 01/29/23 [History] Cholecalciferol (Vitamin D3) [Vitamin D3] 1 cap PO HS 01/29/23 [History] Biotin 5,000 mcg PO HS 10/29/23 [History] Cyanocobalamin/Folic Acid [Vitamin B84-Obqfp Acid Tablet] 1 tab PO HS 10/29/23 [History] Escitalopram Oxalate [Lexapro] 10 mg PO HS 10/29/23 [History] PANTOPRAZOLE 40 mg Tablet [Protonix 40MG Tablet] 40 mg PO DAILY 10/29/23 [History] Levothyroxine Sodium [Tirosint] 137 mcg PO DAILY 01/31/24 [History] Liothyronine Sodium 5 mg PO DAILY 01/31/24 [History] Hx Tetanus, Diphtheria Vaccination/Date Given: No (unknown) Hx Influenza Vaccination/Date Given: No Hx Pneumococcal Vaccination/Date Given: Yes Travel Risk - International Travel Have you traveled outside of the country in past 3 weeks: No - Emerging Infectious Disease Are you exhibiting symptoms associated with any current EIDs: Yes Symptoms: Abdominal Pain - Review of Systems Constitutional: No Symptoms Eyes: No Symptoms Ears, Nose, & Throat: No Symptoms Respiratory: No Symptoms Cardiac: No Symptoms Abdominal/Gastrointestinal: Abdominal Pain Genitourinary Symptoms: No Symptoms Musculoskeletal: No Symptoms Skin: No Symptoms Neurological: No Symptoms Endocrine: No Symptoms Hematologic/Lymphatic: No Symptoms Immunological/Allergic: No Symptoms - Past Medical History Pertinent Past Medical History: Yes Neurological History: Other ENT History: No Pertinent History Cardiac History: No Pertinent History Respiratory History: Pneumonia, Sleep Apnea Endocrine Medical History: Hypothyroidism Musculoskeletal History: No Pertinent History GI Medical History: Gallbladder Disease, Ulcer, Other History: No Pertinent History Psycho-Social History: No Pertinent History Female Reproductive Disorders: Other Other Medical History: N/T into medial side of R foot - Past Surgical History Past Surgical History: Yes Neuro Surgical History: No Pertinent History Cardiac: No Pertinent History Respiratory: No Pertinent History Gastrointestinal: Cholecystectomy Genitourinary: No Pertinent History Musculoskeletal: Other Female Surgical History: Section, Hysterectomy, Lumpectomy Other Surgical History: carpal tunnel- bilateral colonoscopy done last week and ultrasound being done sunday02/04/2024. uterine ablation Significant Family History: no pertinent family hx - Social History Smoking Status: Never smoker Exposure to second hand smoke: No Drug Use: none Patient Lives Alone: No - Social Determinants of Health Will the patient participate in the screening: Yes Do you worry about a steady place to live?: No Do you have any problems with any of the following?: No known problems In the past 12 months,have you had to go without utilities?: No Transportation Issues: No Has anyone in your support network made you feel unsafe?: No Have you or anyone in your house had to go without enough: No - Nursing Vital Signs Nursing Vital Signs: Initial Vital Signs Temperature 96.2 F 01/31/24 21:45 Pulse Rate 77 01/31/24 21:45 Respiratory Rate 17 01/31/24 21:45 Blood Pressure 162/113 01/31/24 21:45 O2 Sat by Pulse Oximetry 98 01/31/24 21:45 Pain Scale Pain Intensity 8 - Physical Exam General Appearance: no apparent distress, alert Eye Exam: PERRL/EOMI Ears, Nose, Throat Exam: normal ENT inspection Neck Exam: normal inspection, non-tender, supple, full range of motion Respiratory Exam: normal breath sounds, lungs clear Cardiovascular Exam: regular rate/rhythm, normal heart sounds Gastrointestinal/Abdomen Exam: soft, normal bowel sounds, tenderness (Epigastric/upper abdomen. No guarding or rebound tenderness.) Extremity Exam: normal inspection, normal range of motion Neurologic Exam: alert, oriented x 3, cooperative Skin Exam: normal color SpO2 Interpretation: normal SpO2: 97 O2 Delivery: Room Air - Course EKG Interpreted by Me: RATE (72), Sinus Rhythm, NORMAL AXIS, NORMAL INTERVALS, Non-specific ST Changes Ordered Tests: Active Orders 24 hr Category Date Time Status EKG-ER Only STAT Care 01/31/24 23:53 Active IV Insertion STAT Care 01/31/24 22:37 Active CHEST 1 VIEW (PORTABLE) Stat Exams 02/01/24 01:03 Taken CBC W DIFF Stat Lab 01/31/24 22:50 Completed CMP Stat Lab 01/31/24 22:50 Completed CULTURE,URINE Stat Lab 01/31/24 22:00 Received LIPASE Stat Lab 01/31/24 22:50 Completed TROPONIN Q3H Lab 01/31/24 22:50 Completed TROPONIN Q3H Lab 02/01/24 02:53 Ordered TROPONIN Q3H Lab 02/01/24 05:53 Ordered TROPONIN Q3H Lab 02/01/24 08:53 Ordered UA W/RFX UR CULTURE Stat Lab 01/31/24 22:00 Completed Transfer Order Routine Transfer 02/01/24 Ordered Medication Summary Discontinued Medications Generic Name Dose Route Start Last Admin Trade Name Freq PRN Reason Stop Dose Admin Aspirin 324 mg 02/01/24 00:50 02/01/24 01:02 Aspirin 81 Mg Tab.Chew PO 02/01/24 00:51 324 mg STAT ONE Administration Aspirin Confirm 02/01/24 01:01 Aspirin 81 Mg Tab.Chew Administered 02/01/24 01:02 Dose 324 mg .ROUTE .STK-MED ONE Hydromorphone HCl 1 mg 01/31/24 22:37 01/31/24 22:52 Hydromorphone 1 Mg/1ml Inj IV 01/31/24 22:38 1 mg STAT ONE Administration Hydromorphone HCl Confirm 01/31/24 22:50 Hydromorphone 1 Mg/1ml Inj Administered 01/31/24 22:51 Dose 1 mg .ROUTE .STK-MED ONE Nitroglycerin 0.5 gm 02/01/24 00:50 02/01/24 01:03 Nitroglycerin 1 Gm Packet TOP 02/01/24 00:51 0.5 gm STAT ONE Administration Nitroglycerin Confirm 02/01/24 01:01 Nitroglycerin 1 Gm Packet Administered 02/01/24 01:02 Dose 1 gm .ROUTE .STK-MED ONE Ondansetron HCl 4 mg 01/31/24 22:37 01/31/24 22:51 Ondansetron Hcl 4 Mg/2 Ml Vial IV 01/31/24 22:38 4 mg STAT ONE Administration Ondansetron HCl Confirm 01/31/24 22:50 Ondansetron Hcl 4 Mg/2 Ml Vial Administered 01/31/24 22:51 Dose 4 mg .ROUTE .STK-MED ONE Lab/Rad Data: Laboratory Result Diagrams 01/31/24 22:50 01/31/24 22:50 Laboratory Results 01/31/24 01/31/24 01/31/24 Range/Units 22:50 22:50 22:50 WBC 6.1 (3.98-10.04) x10^3/uL RBC 4.11 (3.93-5.22) x10^6/uL Hgb 11.8 (11.2-15.7) g/dL Hct 34.8 (34.1-44.9) % MCV 84.7 (79.4-94.8) fL MCH 28.7 (25.6-32.2) pg MCHC 33.9 (32.2-35.5) g/dL RDW 12.9 (11.7-14.4) % Plt Count 222 (182-369) x10^3/uL MPV 9.5 (9.4-12.3) fL Gran % 53.5 (34.0-71.1) % Immature Gran % (Auto) 0.2 (0.001-0.429) % Nucleat RBC Rel Count 0.0 (0.00-0.2) % Eos # (Auto) 0.09 (0.04-0.36) x10^3/uL Immature Gran # (Auto) 0.01 (0.001-0.031) x10^3u/L Absolute Lymphs (auto) 2.23 (1.18-3.74) x10^3/uL Absolute Monos (auto) 0.47 (0.24-0.86) x10^3/uL Absolute Nucleated RBC 0.00 (0.00-0.012) x10^3u/L Lymphocytes % 36.6 (19.3-51.7) % Monocytes % 7.7 (4.7-12.5) % Eosinophils % 1.5 (0.7-5.8) % Basophils % 0.5 (0.1-1.2) % Absolute Granulocytes 3.26 (1.56-6.13) x10^3/uL Basophils # 0.03 (0.01-0.08) x10^3/uL Sodium 141 (135-145) mmol/L Potassium 3.5 (3.5-5.1) mmol/L Chloride 106 (98-107) mmol/L Carbon Dioxide 25 (22-30) mmol/L Anion Gap 13.9 (5-15) MEQ/L BUN 28 H (7-17) mg/dL Creatinine 1.05 H (0.52-1.04) mg/dL Estimated GFR 61.6 ML/MIN Glucose 104 (74-106) mg/dL Calcium 9.1 (8.4-10.2) mg/dL Total Bilirubin 0.40 (0.2-1.3) mg/dL AST 34 (14-36) U/L ALT 21 (0-35) U/L Alkaline Phosphatase 137 H (38-126) U/L Troponin I 0.803 H* (0.000-0.033) ng/mL Serum Total Protein 6.4 (6.3-8.2) g/dL Albumin 3.8 (3.5-5.0) g/dL Lipase 128 (23-300) U/L Urine Color (Yellow) Urine Appearance (Clear) Urine pH (4.6-8.0) Ur Specific [place] (1.005-1.030) Urine Protein (Negative) Urine Glucose (UA) (Negative) mg/dL Urine Ketones (Negative) Urine Blood (Negative) Urine Nitrite (Negative) Urine Bilirubin (Negative) Urine Urobilinogen (0.2) mg/dL Ur Leukocyte Esterase (Negative) U Hyaline Cast (Auto) (0-2) /LPF Urine Microscopic RBC (0-5) /HPF Urine Microscopic WBC (0-5) /HPF Ur Epithelial Cells (None Seen) /HPF Urine Bacteria (None Seen) /HPF Urine Culture Reflexed (NO) 01/31/24 Range/Units 22:00 WBC (3.98-10.04) x10^3/uL RBC (3.93-5.22) x10^6/uL Hgb (11.2-15.7) g/dL Hct (34.1-44.9) % MCV (79.4-94.8) fL MCH (25.6-32.2) pg MCHC (32.2-35.5) g/dL RDW (11.7-14.4) % Plt Count (182-369) x10^3/uL MPV (9.4-12.3) fL Gran % (34.0-71.1) % Immature Gran % (Auto) (0.001-0.429) % Nucleat RBC Rel Count (0.00-0.2) % Eos # (Auto) (0.04-0.36) x10^3/uL Immature Gran # (Auto) (0.001-0.031) x10^3u/L Absolute Lymphs (auto) (1.18-3.74) x10^3/uL Absolute Monos (auto) (0.24-0.86) x10^3/uL Absolute Nucleated RBC (0.00-0.012) x10^3u/L Lymphocytes % (19.3-51.7) % Monocytes % (4.7-12.5) % Eosinophils % (0.7-5.8) % Basophils % (0.1-1.2) % Absolute Granulocytes (1.56-6.13) x10^3/uL Basophils # (0.01-0.08) x10^3/uL Sodium (135-145) mmol/L Potassium (3.5-5.1) mmol/L Chloride (98-107) mmol/L Carbon Dioxide (22-30) mmol/L Anion Gap (5-15) MEQ/L BUN (7-17) mg/dL Creatinine (0.52-1.04) mg/dL Estimated GFR ML/MIN Glucose (74-106) mg/dL Calcium (8.4-10.2) mg/dL Total Bilirubin (0.2-1.3) mg/dL AST (14-36) U/L ALT (0-35) U/L Alkaline Phosphatase (38-126) U/L Troponin I (0.000-0.033) ng/mL Serum Total Protein (6.3-8.2) g/dL Albumin (3.5-5.0) g/dL Lipase (23-300) U/L Urine Color Yellow (Yellow) Urine Appearance Clear (Clear) Urine pH 6.0 (4.6-8.0) Ur Specific [place] >=1.030 A (1.005-1.030) Urine Protein Trace A (Negative) Urine Glucose (UA) Negative (Negative) mg/dL Urine Ketones Negative (Negative) Urine Blood NHT (Negative) Urine Nitrite Negative (Negative) Urine Bilirubin Negative (Negative) Urine Urobilinogen 1.0 A (0.2) mg/dL Ur Leukocyte Esterase Negative (Negative) U Hyaline Cast (Auto) 3-5 A (0-2) /LPF Urine Microscopic RBC 6-10 A (0-5) /HPF Urine Microscopic WBC 0-2 (0-5) /HPF Ur Epithelial Cells None Seen (None Seen) /HPF Urine Bacteria None Seen (None Seen) /HPF Urine Culture Reflexed YES (NO) - Progress Progress: improved, re-examined Progress Note: 02/01/24 01:34 58 years old is evaluated in the ER for upper abdominal/epigastric pain. She is given morphine along with Protonix, feeling much improved on reevaluation. EKG showed sinus rhythm with no acute ST elevations. Has some questionable elevation in inferior leads which compared with the previous EKG on file shows no new changes since April 2023. Has normal white count, chemistries fairly unremarkable but patient's troponins are 0.8. She denies any chest pain or palpitations. She does have history of chest pains in the past and has nuclear stress test done few months ago which was negative. Chest x-ray is negative for any acute cardiopulmonary findings. Abdominal exam improved. Patient has previous CAT scans done which were negative. Do not think she needs another CT abdomen pelvis. She is given aspirin and Nitropaste. I have shared the results of workup with patient and family and need for possible transfer but she prefers to stay here. With her elevated troponin I have discussed with hospitalist Dr. Anderson, reviewed history, workup and agreed with observation admission. Will obtain second troponin and here and if remains the same or trending down, patient can be admitted here. Discussed with : Chacha Counseled pt/family regarding: lab results, diagnosis, rad results Medical Desision Making - Independent Historian Additional History obtained from: Spouse - Discussion of managment Care discussed with:: hospitalist Reviewed:: Test results Agreed on:: Treatment plan, place in obs Will see patient: in hospital - Diagnostic Testing Diagnostic test were ordered, analyzed, and reviewed by me: Yes Radiological Interpretation: Interpreted by me, Reviewed by me - Risk of complications The pt has a mod risk of morbidity or mortality based on: Need for prescription drug management The pt has a high risk of morbidity or mortality based on: Decision regarding hospitilization or escalation of hosp level of care - Departure Departure Disposition: Observation Clinical Impression: Epigastric pain, Elevated troponin Condition: Stable Critical Care Time: No Referrals: NURY HINTON DO [Primary Care Provider] - Follow up/PCP as directed
[2024-02-01] MEDS ORDERED: NITRO-BID 2% UD PACKETS ONE (01:01)
[2024-02-01] MEDS ORDERED: BABY ASPIRIN 81 MG CHEW ONE (01:01)
[2024-02-01] MEDS: BABY ASPIRIN 81 MG CHEW PO ONE (01:02)
[2024-02-01] MEDS: NITRO-BID 2% UD PACKETS TOP ONE (01:03)
[2024-02-01] MEDS ORDERED: ZOFRAN ODT 4 MG PO PRN (03:54)
[2024-02-01] MEDS ORDERED: NORCO 10-325 MG PO PRN (03:56)
[2024-02-01] MEDS ORDERED: Zofran 4 MG/2 ML VIAL ONE (04:35)
[2024-02-01] MEDS: Hydromorphone 1 mg/ml Injection IV PRN (04:40)
[2024-02-01 05:38] LABS: Hematocrit 36.1 % (34.1-44.9); Hemoglobin 11.9 g/dL (11.2-15.7); Mean Cell Volume 86.2 fL (79.4-94.8); Mean Corpuscular Hemoglobin 28.4 pg (25.6-32.2); Mean Platelet Volume 9.9 fL (9.4-12.3); Platelet Count 232 x10^3/uL (182-369); Red Blood Count 4.19 x10^6/uL (3.93-5.22); Red Cell Distribution Width 12.9 % (11.7-14.4); White Blood Count 5.2 x10^3/uL (3.98-10.04)
[2024-02-01 06:04] LABS: ANION GAP 12.4 MEQ/L (5-15); Creatinine 1 0.99 mg/dL (0.52-1.04); EST GLOMERULAR FILTRATION RATE 66.1 ML/MIN; Potassium 3.8 mmol/L (3.5-5.1)
--- NOTE | 2024-02-01 06:44 | PCM.HP ---
History of Present Illness - Chief Complaint Chief Complaint: abdominal pain Date: 02/01/24 History of Present Illness: is a 58 year old female with h/o chronic abdominal pain, GERD, HTN, hypothyroidism, here with recurrent but varying midepigastric pain. Patient has had chronic midepigastric abdominal pain, currently being worked up with Dr. Enrique Chavez in [place]. She has had multiple CT and colonoscopy, and no abnormality to date except mild elevation in AlkPhos. She is pending RUQ U/S and EGD with Dr. Chavez. Today presents with sudden recurrence of her sharp stabbing midepigastric abdominal pain. Somewhat different from usual pain in that is rad iating to the back, and associated with some "chest fluttering" that is described as non-painful. Associated with some nausea and dyspnea. Symptoms occur at rest, and she ahs no exertional component. She had a nuclear stress test in October that was negative for ischemia. However, in the ED, she was found to have elevated troponin. Her pain was initially relieved by Dilaudid in ED, but is recurring upon arriving to floor. - Review of Systems All Other Systems: Reviewed and Negative Medications & Allergies Home Medications: Home Medication List Amlodipine Besylate 5 mg [Norvasc 5 mg] 5 mg PO HS 04/20/19 [History Confirmed 01/31/24] Semaglutide [Ozempic] 2 mg SQ WEEKLY 07/12/22 [History Confirmed 01/31/24] Calcium Carbonate [Calcium] 2 tab PO HS 01/29/23 [History Confirmed 01/31/24] Cholecalciferol (Vitamin D3) [Vitamin D3] 1 cap PO HS 01/29/23 [History Confirmed 01/31/24] Biotin 5,000 mcg PO HS 10/29/23 [History Confirmed 01/31/24] Cyanocobalamin/Folic Acid [Vitamin Q96-Wjxve Acid Tablet] 1 tab PO HS 10/29/23 [History Confirmed 01/31/24] Escitalopram Oxalate [Lexapro] 10 mg PO HS 10/29/23 [History Confirmed 01/31/24] Ondansetron ODT 4 MG [Zofran Odt 4 mg] 4 mg PO Q6H PRN PRN #10 tablet 10/29/23 [Rx Confirmed 01/31/24] PANTOPRAZOLE 40 mg Tablet [Protonix 40MG Tablet] 40 mg PO DAILY 10/29/23 [History Confirmed 01/31/24] Levothyroxine Sodium [Tirosint] 137 mcg PO DAILY 01/31/24 [History Confirmed 01/31/24] Liothyronine Sodium 5 mg PO DAILY 01/31/24 [History Confirmed 01/31/24] Allergies/Adverse Reactions: Allergies Allergy/AdvReac Type Severity Reaction Status Date / Time shrimp Allergy Severe Swelling Verified 10/29/23 05:13 of Tongue and Lips morphine AdvReac Mild ITCH Verified 01/31/24 21:57 - Past Medical History Past Medical History: Yes Neurological History: Other ENT History: No Pertinent History Cardiac History: No Pertinent History Respiratory History: Pneumonia, Sleep Apnea Endocrine Medical History: Hypothyroidism Musculoskelatal History: No Pertinent History GI Medical History: Gallbladder Disease, Ulcer, Other History: No Pertinent History Pyscho-Social History: No Pertinent History Reproductive Disorders: Other Comment: N/T into medial side of R foot - Past Surgical History Past Surgical History: Yes Neuro Surgical History: No Pertinent History Cardiac History: No Pertinent History Respiratory Surgery: No Pertinent History GI Surgical History: Cholecystectomy Genitourinary Surgical Hx: No Pertinent History Musculskeletal Surgical Hx: Other Female Surgical History: Section, Hysterectomy, Lumpectomy Other Surgical History: carpal tunnel- bilateral colonoscopy done last week and ultrasound being done sunday02/04/2024. uterine ablation Significant Family History: no pertinent family hx - Social History Smoking Status: Never smoker Exposure to second hand smoke: Yes Alcohol: None Drug Use: none - Social Determinants of Health Will the patient participate in the screening: Yes Do you worry about a steady place to live?: No Do you have any problems with any of the following?: No known problems In the past 12 months,have you had to go without utilities?: No Have you or anyone in your house had to go without enough: No Transportation Issues: No Has anyone in your support network made you feel unsafe?: No Does the patient want assistance with any of the above?: No - Physical Exam Vital Signs: Vital Signs - 24 hr Temp Pulse Resp BP BP Pulse Ox 02/01/24 05:12 72 16 96 02/01/24 04:48 97 F 76 16 186/84 99 02/01/24 03:00 77 18 129/78 96 02/01/24 02:30 151/82 91 L 02/01/24 02:00 70 16 154/77 96 02/01/24 01:55 97 02/01/24 01:30 76 18 161/87 96 02/01/24 01:00 77 18 166/108 100 02/01/24 00:30 147/82 98 02/01/24 00:00 127/76 97 01/31/24 23:30 147/76 84 L 01/31/24 23:00 154/86 88 L 01/31/24 22:31 80 16 153/101 94 L 01/31/24 22:00 163/98 96 01/31/24 21:45 96.2 F 77 17 162/113 98 General Appearance: no apparent distress Neurologic Exam: alert, oriented x 3, No motor deficits, No sensory deficit Respiratory Exam: normal breath sounds, lungs clear, No respiratory distress, No accessory muscle use Cardiovascular Exam: regular rate/rhythm, normal heart sounds, No edema Gastrointestinal/Abdomen Exam: tenderness (diffusely), No distention, No guarding, No rebound Results - Labs Lab/Micro Results: Lab Results-Last 24 Hours 01/31/24 01/31/24 01/31/24 Range/Units 22:00 22:50 22:50 WBC 6.1 (3.98-10.04) x10^3/uL RBC 4.11 (3.93-5.22) x10^6/uL Hgb 11.8 (11.2-15.7) g/dL Hct 34.8 (34.1-44.9) % MCV 84.7 (79.4-94.8) fL MCH 28.7 (25.6-32.2) pg MCHC 33.9 (32.2-35.5) g/dL RDW 12.9 (11.7-14.4) % Plt Count 222 (182-369) x10^3/uL MPV 9.5 (9.4-12.3) fL Gran % 53.5 (34.0-71.1) % Immature Gran % (Auto) 0.2 (0.001-0.429) % Nucleat RBC Rel Count 0.0 (0.00-0.2) % Eos # (Auto) 0.09 (0.04-0.36) x10^3/uL Immature Gran # (Auto) 0.01 (0.001-0.031) x10^3u/L Absolute Lymphs (auto) 2.23 (1.18-3.74) x10^3/uL Absolute Monos (auto) 0.47 (0.24-0.86) x10^3/uL Absolute Nucleated RBC 0.00 (0.00-0.012) x10^3u/L Lymphocytes % 36.6 (19.3-51.7) % Monocytes % 7.7 (4.7-12.5) % Eosinophils % 1.5 (0.7-5.8) % Basophils % 0.5 (0.1-1.2) % Absolute Granulocytes 3.26 (1.56-6.13) x10^3/uL Basophils # 0.03 (0.01-0.08) x10^3/uL Sodium 141 (135-145) mmol/L Potassium 3.5 (3.5-5.1) mmol/L Chloride 106 (98-107) mmol/L Carbon Dioxide 25 (22-30) mmol/L Anion Gap 13.9 (5-15) MEQ/L BUN 28 H (7-17) mg/dL Creatinine 1.05 H (0.52-1.04) mg/dL Estimated GFR 61.6 ML/MIN Glucose 104 (74-106) mg/dL Calcium 9.1 (8.4-10.2) mg/dL Total Bilirubin 0.40 (0.2-1.3) mg/dL AST 34 (14-36) U/L ALT 21 (0-35) U/L Alkaline Phosphatase 137 H (38-126) U/L Troponin I (0.000-0.033) ng/mL Serum Total Protein 6.4 (6.3-8.2) g/dL Albumin 3.8 (3.5-5.0) g/dL Lipase 128 (23-300) U/L Urine Color Yellow (Yellow) Urine Appearance Clear (Clear) Urine pH 6.0 (4.6-8.0) Ur Specific Dearing >=1.030 A (1.005-1.030) Urine Protein Trace A (Negative) Urine Glucose (UA) Negative (Negative) mg/dL Urine Ketones Negative (Negative) Urine Blood NHT (Negative) Urine Nitrite Negative (Negative) Urine Bilirubin Negative (Negative) Urine Urobilinogen 1.0 A (0.2) mg/dL Ur Leukocyte Esterase Negative (Negative) U Hyaline Cast (Auto) 3-5 A (0-2) /LPF Urine Microscopic RBC 6-10 A (0-5) /HPF Urine Microscopic WBC 0-2 (0-5) /HPF Ur Epithelial Cells None Seen (None Seen) /HPF Urine Bacteria None Seen (None Seen) /HPF Urine Culture Reflexed YES (NO) 01/31/24 02/01/24 02/01/24 Range/Units 22:50 02:10 05:15 WBC 5.2 (3.98-10.04) x10^3/uL RBC 4.19 (3.93-5.22) x10^6/uL Hgb 11.9 (11.2-15.7) g/dL Hct 36.1 (34.1-44.9) % MCV 86.2 (79.4-94.8) fL MCH 28.4 (25.6-32.2) pg MCHC 33.0 (32.2-35.5) g/dL RDW 12.9 (11.7-14.4) % Plt Count 232 (182-369) x10^3/uL MPV 9.9 (9.4-12.3) fL Gran % (34.0-71.1) % Immature Gran % (Auto) (0.001-0.429) % Nucleat RBC Rel Count (0.00-0.2) % Eos # (Auto) (0.04-0.36) x10^3/uL Immature Gran # (Auto) (0.001-0.031) x10^3u/L Absolute Lymphs (auto) (1.18-3.74) x10^3/uL Absolute Monos (auto) (0.24-0.86) x10^3/uL Absolute Nucleated RBC (0.00-0.012) x10^3u/L Lymphocytes % (19.3-51.7) % Monocytes % (4.7-12.5) % Eosinophils % (0.7-5.8) % Basophils % (0.1-1.2) % Absolute Granulocytes (1.56-6.13) x10^3/uL Basophils # (0.01-0.08) x10^3/uL Sodium (135-145) mmol/L Potassium (3.5-5.1) mmol/L Chloride (98-107) mmol/L Carbon Dioxide (22-30) mmol/L Anion Gap (5-15) MEQ/L BUN (7-17) mg/dL Creatinine (0.52-1.04) mg/dL Estimated GFR ML/MIN Glucose (74-106) mg/dL Calcium (8.4-10.2) mg/dL Total Bilirubin (0.2-1.3) mg/dL AST (14-36) U/L ALT (0-35) U/L Alkaline Phosphatase (38-126) U/L Troponin I 0.803 H* 0.672 H* (0.000-0.033) ng/mL Serum Total Protein (6.3-8.2) g/dL Albumin (3.5-5.0) g/dL Lipase (23-300) U/L Urine Color (Yellow) Urine Appearance (Clear) Urine pH (4.6-8.0) Ur Specific Dearing (1.005-1.030) Urine Protein (Negative) Urine Glucose (UA) (Negative) mg/dL Urine Ketones (Negative) Urine Blood (Negative) Urine Nitrite (Negative) Urine Bilirubin (Negative) Urine Urobilinogen (0.2) mg/dL Ur Leukocyte Esterase (Negative) U Hyaline Cast (Auto) (0-2) /LPF Urine Microscopic RBC (0-5) /HPF Urine Microscopic WBC (0-5) /HPF Ur Epithelial Cells (None Seen) /HPF Urine Bacteria (None Seen) /HPF Urine Culture Reflexed (NO) 02/01/24 Range/Units 05:15 WBC (3.98-10.04) x10^3/uL RBC (3.93-5.22) x10^6/uL Hgb (11.2-15.7) g/dL Hct (34.1-44.9) % MCV (79.4-94.8) fL MCH (25.6-32.2) pg MCHC (32.2-35.5) g/dL RDW (11.7-14.4) % Plt Count (182-369) x10^3/uL MPV (9.4-12.3) fL Gran % (34.0-71.1) % Immature Gran % (Auto) (0.001-0.429) % Nucleat RBC Rel Count (0.00-0.2) % Eos # (Auto) (0.04-0.36) x10^3/uL Immature Gran # (Auto) (0.001-0.031) x10^3u/L Absolute Lymphs (auto) (1.18-3.74) x10^3/uL Absolute Monos (auto) (0.24-0.86) x10^3/uL Absolute Nucleated RBC (0.00-0.012) x10^3u/L Lymphocytes % (19.3-51.7) % Monocytes % (4.7-12.5) % Eosinophils % (0.7-5.8) % Basophils % (0.1-1.2) % Absolute Granulocytes (1.56-6.13) x10^3/uL Basophils # (0.01-0.08) x10^3/uL Sodium 140 (135-145) mmol/L Potassium 3.8 (3.5-5.1) mmol/L Chloride 105 (98-107) mmol/L Carbon Dioxide 26 (22-30) mmol/L Anion Gap 12.4 (5-15) MEQ/L BUN 26 H (7-17) mg/dL Creatinine 0.99 (0.52-1.04) mg/dL Estimated GFR 66.1 ML/MIN Glucose 93 (74-106) mg/dL Calcium 9.0 (8.4-10.2) mg/dL Total Bilirubin (0.2-1.3) mg/dL AST (14-36) U/L ALT (0-35) U/L Alkaline Phosphatase (38-126) U/L Troponin I (0.000-0.033) ng/mL Serum Total Protein (6.3-8.2) g/dL Albumin (3.5-5.0) g/dL Lipase (23-300) U/L Urine Color (Yellow) Urine Appearance (Clear) Urine pH (4.6-8.0) Ur Specific Dearing (1.005-1.030) Urine Protein (Negative) Urine Glucose (UA) (Negative) mg/dL Urine Ketones (Negative) Urine Blood (Negative) Urine Nitrite (Negative) Urine Bilirubin (Negative) Urine Urobilinogen (0.2) mg/dL Ur Leukocyte Esterase (Negative) U Hyaline Cast (Auto) (0-2) /LPF Urine Microscopic RBC (0-5) /HPF Urine Microscopic WBC (0-5) /HPF Ur Epithelial Cells (None Seen) /HPF Urine Bacteria (None Seen) /HPF Urine Culture Reflexed (NO) - Radiology Impressions Radiology Exams & Impressions: Radiology Procedures Category Date Time Status CHEST 1 VIEW (PORTABLE) Stat Exams 02/01/24 01:03 Taken CXR images reviewed, no infiltrate, effusion, or edema. Assessment/Plan (1) Epigastric pain Current Visit: Yes Status: Acute Assessment & Plan: 58 y/o F with h/o HTN, GERD, and hypothyroidism, presenting with recurrent epigastric pain, found to have elevated troponin. ## Elevated troponin - concerning that patient's abdominal pain could be anginal equivalent. It is different from her usual abdominal pain in some characters. However, it is non-exertional and not relieved by rest. As well, she has had a negative stress test in the last three months, making ACS less likely although not impossible. Her EKG is unchanged from prior. Concern for serious injury if ACS is not diagnosed. - trend troponins - place in observation and monitor on telemetry - if troponins trend down, will have patient follow up with cardiology to determine if further risk stratification necessary given relatively recent nuclear stress imaging. ## Chronic recurrent epigastric pain - etiology unclear, currently following with GI Dr. Enrique Chavez in [place]. Chart notes peptic ulcer disease, although patient denies having prior EGD. (One is scheduled with Dr. Chavez.) Her AlkPhos is very mildly elevated. Patient has prior cholecystectomy, but could still have CBD or pancreatic duct obstruction (although would expect more acute episodes rather than recurrent pain) or interhepatic duct disease. - follow up with GI for RUQ U/S and EGD - PRN morphine and Zofran ## Hypertension - BP controlled - continue Norvasc 5 QHS ## Post-operative hypothyroidism - continue liothyronine and levothyroxine supplementation Code Status: Full code Diet: regular Prophylaxis: none (low risk, encourage ambulation) Dispo: Place in observation, expect discharge to home in 1 midnight Code(s): R10.13 - EPIGASTRIC PAIN Telemedicine Encounter - Telemedicine Encounter Telemedicine Encounter: "The entirety of this encounter was performed via Telemedicine" This visit was performed using real-time audio and video connection between my location and thepatients locationwith the assistance of a surrogateat the patients location. Written or verbal consent was obtained from the patient/guardian to perform this visit [facility]. Any patient questions regarding the telemedicine interaction were answered.
[2024-02-01] MEDS ORDERED: MEDICATION INTERVENTION MC SCH (07:15)
--- NOTE | 2024-02-01 09:16 | XRAY ---
Indication: Epigastric pain. Comparison: May 23, 2023 Portable chest again demonstrates normal heart and lungs with incidental small/tiny calcified granulomas. Bony thorax intact. No new/acute findings.
[2024-02-01] MEDS: Protonix 40MG Tablet PO SCH (09:51)
[2024-02-01] MEDS: Carafate SUSPENSION 1000 MG/10 ML PO ONE (09:51)
[2024-02-01] MEDS: SYNTHROID 112 MCG PO SCH (09:53)
[2024-02-01] MEDS: SYNTHROID 25 MCG PO SCH (09:53)
[2024-02-01] MEDS ORDERED: LEVOTHYROXINE SODIUM 137 MCG PO SCH (10:00)
[2024-02-01] MEDS ORDERED: NON-FORMULARY ITEM (Liothyronine Sodium [Liothyronine Sodium] 5 MCG Tablet) PO SCH (10:00)
[2024-02-01] MEDS: TYLENOL 325 MG PO PRN (11:40)
--- NOTE | 2024-02-01 14:03 | PCM.CONS ---
History of Present Illness - Date of Consult Date of Encounter: 02/01/24 Consulting Stockroom Keeper: JOVNAA NGUYEN MD Requesting Provider: Attending Provider: JACE MCCLAIN MD Primary Care Provider: PCP: NURY HINTON, DO - Consult Narrative Reason for Consult: elevated trops HPI: Patient is a 58F w/ PMHx of graves now hypothyroid after ablation, pre-DM, HTN, and HL who presents for evaluation of abdominal discomfort as per HPI. She reports symptoms come once every 4 weeks or so for the past year. She has been undergoing w/u by GI with negative colonoscopy thus far. She is to have an liver u/s and possible EGD in the near future. The pain can be quite severe at times and can last from an hour or so to days long. She reports associated nausea but no emesis. No SOB. It can radiate to her back. Symptoms occur completely randomly and aren't related to exertion or other stressors. She reports there is nothing particularly different about today's episode vs. previous ones. In addition, she reports a weird fluttering sensation across the top of her chest. It can be fleeting or last up to an hour. It's not painful and she has a hard time describing it. This lead to a recent nuclear stress test which per the patient was unremarkable. Cardiac trops were elevated and thus cardiology was consulted for further evaluation. cc:: The requesting physician will be sent a copy of the consult. Review of Systems - Review of Systems All systems: as per HPI - Past Medical History Past Medical History: Yes Neurological History: Other ENT History: No Pertinent History Cardiac History: No Pertinent History, High Cholesterol, Hypertension Respiratory History: Pneumonia, Sleep Apnea Endocrine Medical History: Hypothyroidism, Other (Graves now hypothyroid) Musculoskelatal History: No Pertinent History GI Medical History: Gallbladder Disease, Ulcer, Other History: No Pertinent History Pyscho-Social History: No Pertinent History Reproductive Disorders: Other Comment: N/T into medial side of R foot - Past Surgical History Past Surgical History: Yes Neuro Surgical History: No Pertinent History Cardiac History: No Pertinent History Respiratory Surgery: No Pertinent History GI Surgical History: Cholecystectomy Genitourinary Surgical Hx: No Pertinent History Musculskeletal Surgical Hx: Other Female Surgical History: Section, Hysterectomy, Lumpectomy Other Surgical History: carpal tunnel- bilateral colonoscopy done last week and ultrasound being done sunday02/04/2024. uterine ablation Significant Family History: no pertinent family hx - Social History Smoking Status: Never smoker Exposure to second hand smoke: Yes Alcohol: None Drug Use: none - Social Determinants of Health Will the patient participate in the screening: Yes Do you worry about a steady place to live?: No Do you have any problems with any of the following?: No known problems In the past 12 months,have you had to go without utilities?: No Have you or anyone in your house had to go without enough: No Transportation Issues: No Has anyone in your support network made you feel unsafe?: No Does the patient want assistance with any of the above?: No Medications & Allergies Home Medications: Home Medication List Amlodipine Besylate 5 mg [Norvasc 5 mg] 5 mg PO HS 04/20/19 [History Confirmed 01/31/24] Semaglutide [Ozempic] 2 mg SQ WEEKLY 07/12/22 [History Confirmed 01/31/24] Calcium Carbonate [Calcium] 2 tab PO HS 01/29/23 [History Confirmed 01/31/24] Cholecalciferol (Vitamin D3) [Vitamin D3] 1 cap PO HS 01/29/23 [History Confirmed 01/31/24] Biotin 5,000 mcg PO HS 10/29/23 [History Confirmed 01/31/24] Cyanocobalamin/Folic Acid [Vitamin Q39-Vmgys Acid Tablet] 1 tab PO HS 10/29/23 [History Confirmed 01/31/24] Escitalopram Oxalate [Lexapro] 10 mg PO HS 10/29/23 [History Confirmed 01/31/24] Ondansetron ODT 4 MG [Zofran Odt 4 mg] 4 mg PO Q6H PRN PRN #10 tablet 10/29/23 [Rx Confirmed 01/31/24] PANTOPRAZOLE 40 mg Tablet [Protonix 40MG Tablet] 40 mg PO DAILY 10/29/23 [History Confirmed 01/31/24] Levothyroxine Sodium [Tirosint] 137 mcg PO DAILY 01/31/24 [History Confirmed 01/31/24] Liothyronine Sodium 5 mg PO DAILY 01/31/24 [History Confirmed 01/31/24] Allergies/Adverse Reactions: Allergies Allergy/AdvReac Type Severity Reaction Status Date / Time shrimp Allergy Severe Swelling Verified 10/29/23 05:13 of Tongue and Lips morphine AdvReac Mild ITCH Verified 01/31/24 21:57 Exam - Vitals Vital Signs: Vital Signs - 24 hr Temp Pulse Resp BP BP Pulse Ox 02/01/24 11:49 97.4 F 77 17 145/73 96 02/01/24 07:34 97.3 F 73 17 149/71 96 02/01/24 05:12 72 16 96 02/01/24 04:48 97 F 76 16 186/84 99 02/01/24 03:00 77 18 129/78 96 02/01/24 02:30 151/82 91 L 02/01/24 02:00 70 16 154/77 96 02/01/24 01:55 97 02/01/24 01:30 76 18 161/87 96 02/01/24 01:00 77 18 166/108 100 02/01/24 00:30 147/82 98 02/01/24 00:00 127/76 97 01/31/24 23:30 147/76 84 L 01/31/24 23:00 154/86 88 L 01/31/24 22:31 80 16 153/101 94 L 01/31/24 22:00 163/98 96 01/31/24 21:45 96.2 F 77 17 162/113 98 General:: alert and oriented x 4, no acute distress HEENT: PERRLA, EOMI Cardiovascular Exam: regular rate/rhythm, normal heart sounds, capillary refill <2 sec, other (no m/r/g) Respiratory Exam: normal breath sounds, lungs clear SpO2: 96 Gastrointestinal/Abdomen Exam: soft, normal bowel sounds Skin Exam: normal color Extremity Exam: normal inspection, other (no edema) Neurologic: zmt operator II-XII grossly intact, 5/5 Motor and Sensory Upper and Lower Extremities Results Vital Signs: Vital Signs - 24 hr Temp Pulse Resp BP BP Pulse Ox 02/01/24 11:49 97.4 F 77 17 145/73 96 02/01/24 07:34 97.3 F 73 17 149/71 96 02/01/24 05:12 72 16 96 02/01/24 04:48 97 F 76 16 186/84 99 02/01/24 03:00 77 18 129/78 96 02/01/24 02:30 151/82 91 L 02/01/24 02:00 70 16 154/77 96 02/01/24 01:55 97 02/01/24 01:30 76 18 161/87 96 02/01/24 01:00 77 18 166/108 100 02/01/24 00:30 147/82 98 02/01/24 00:00 127/76 97 01/31/24 23:30 147/76 84 L 01/31/24 23:00 154/86 88 L 01/31/24 22:31 80 16 153/101 94 L 01/31/24 22:00 163/98 96 01/31/24 21:45 96.2 F 77 17 162/113 98 Pain Assessment - Last Documented Pain Intensity 7 Pain Scale Used 0-10 Pain Scale Intake and Output: Intake & Output 01/30/24 01/31/24 02/01/24 02/02/24 11:59 11:59 11:59 11:59 Intake Total 120 150 Balance 120 150 Weight 83.3 kg LAB: I have reviewed the Labs in [employer] Radiology Exams: Radiology Procedures Category Date Time Status CHEST 1 VIEW (PORTABLE) Stat Exams 02/01/24 01:03 Completed ECHO W/2D AND DOPPLER [US] Routine Exams 02/01/24 11:30 Ordered Tracing 2 Attestation: I have reviewed this EKG and interpreted as documented below. EKG Narrative: EKG with NSR and subtle upsloping ST changes inferiorly and V6. - ECHO Echo: pending Assessment & Plan (1) Elevated troponin Current Visit: Yes Status: Acute Assessment & Plan: Very mild elevation now downtrendin.80 --> 0.68 --> 0.55 --> 0.37. While her abdominal pain could certainly be an anginal equivalent, it seems to be similar to all of her other prior episodes. It is also very atypical in nature for CAD in that it isn't exertional and can last for hours/days at a time. EKG shows subtle upsloping changes (more characteristic of pericarditis); however, patient has no classic symptoms of such. Will check esr/crp for completeness. Will also check echo to assess for structural issues. The patient had a recent stress test which was negative (although not predictive of MN, it can detect severe coronary lesions). Another rarer possibility would be coronary vasospasm although it only rarely results in elevated trop levels. She is already on amlodipine which theoretically should treat this if that were the etiology. Regardless, recommend increasing to 10mg as her BP remains out of control so needs higher dose anyway. There is no indication for urgent cath and presuming the above workup is unremarkable, she can follow up with cardiology as an outpatient. Code(s): R79.89 - OTHER SPECIFIED ABNORMAL FINDINGS OF BLOOD CHEMISTRY - Encounter Encounter: "The entirety of this encounter was performed via Telemedicine using audio and visual "
[2024-02-01 16:42] VITALS: BP 138/70; PULSE 72; RESP 18; TEMP 97.5; O2SAT 95
--- NOTE | 2024-02-01 16:52 | PCM.DS ---
Discharge Summary Date of Admission: 02/01/24 03:25 Date of Discharge: 02/01/24 Admitting Physician: JACE MCCLAIN MD Consults: Consults on Case 02/01/24 07:23 Consult Cardiology ROUTINE Primary Care Provider: NURY HINTON DO Allergies Allergies shrimp Allergy (Severe, Verified 10/29/23 05:13) Swelling of Tongue and Lips morphine Adverse Reaction (Mild, Verified 01/31/24 21:57) ITCH Hospital Summary - Hospital Course Hospital Course: is a 58 year old female with h/o chronic abdominal pain, GERD, HTN, hypothyroidism, here with recurrent but varying midepigastric pain. Patient has had chronic midepigastric abdominal pain, currently being worked up with Dr. Enrique Chavez in [place]. She has had multiple CT and colonoscopy, and no abnormality to date except mild elevation in AlkPhos. She is pending RUQ U/S and EGD with Dr. Chavez. Today presents with sudden recurrence of her sharp stabbing midepigastric abdominal pain. Somewhat different from usual pain in that is ra diating to the back, and associated with some "chest fluttering" that is described as non-painful. Associated with some nausea and dyspnea. Symptoms occur at rest, and she ahs no exertional component. She had a nuclear stress test in October that was negative for ischemia. However, in the ED, she was found to have elevated troponins that trended down. Her pain was initially relieved by Dilaudid in ED, but is recurring upon arriving to floor. Cardiology consulted, recommended better blood pressure control EF 72% with LVH. Diet and exercise control recommended. Pt wanting to d/c today and is feeling better w/o CP or abd pain. Cardiology appointment made OP. GI f/u next week. She denies any further concerns at this time. - Vitals & Intake/Output Vital Signs: Vital Signs Temperature 97.5 F 02/01/24 16:00 Pulse Rate 72 02/01/24 16:00 Respiratory Rate 18 02/01/24 16:00 Blood Pressure 138/70 02/01/24 16:00 O2 Sat by Pulse Oximetry 95 02/01/24 16:00 Intake & Output: Intake & Output 01/30/24 01/31/24 02/01/24 02/02/24 11:59 11:59 11:59 11:59 Intake Total 120 150 Balance 120 150 Weight 83.3 kg - Lab Result Diagrams: 02/01/24 05:15 02/01/24 05:15 Lab Results-Last 24 Hrs: Lab Results-Last 24 Hours 01/31/24 01/31/24 01/31/24 Range/Units 22:00 22:50 22:50 WBC 6.1 (3.98-10.04) x10^3/uL RBC 4.11 (3.93-5.22) x10^6/uL Hgb 11.8 (11.2-15.7) g/dL Hct 34.8 (34.1-44.9) % MCV 84.7 (79.4-94.8) fL MCH 28.7 (25.6-32.2) pg MCHC 33.9 (32.2-35.5) g/dL RDW 12.9 (11.7-14.4) % Plt Count 222 (182-369) x10^3/uL MPV 9.5 (9.4-12.3) fL Gran % 53.5 (34.0-71.1) % Immature Gran % (Auto) 0.2 (0.001-0.429) % Nucleat RBC Rel Count 0.0 (0.00-0.2) % Eos # (Auto) 0.09 (0.04-0.36) x10^3/uL Immature Gran # (Auto) 0.01 (0.001-0.031) x10^3u/L Absolute Lymphs (auto) 2.23 (1.18-3.74) x10^3/uL Absolute Monos (auto) 0.47 (0.24-0.86) x10^3/uL Absolute Nucleated RBC 0.00 (0.00-0.012) x10^3u/L Lymphocytes % 36.6 (19.3-51.7) % Monocytes % 7.7 (4.7-12.5) % Eosinophils % 1.5 (0.7-5.8) % Basophils % 0.5 (0.1-1.2) % Absolute Granulocytes 3.26 (1.56-6.13) x10^3/uL Basophils # 0.03 (0.01-0.08) x10^3/uL ESR (0-20) mm/hr Sodium 141 (135-145) mmol/L Potassium 3.5 (3.5-5.1) mmol/L Chloride 106 (98-107) mmol/L Carbon Dioxide 25 (22-30) mmol/L Anion Gap 13.9 (5-15) MEQ/L BUN 28 H (7-17) mg/dL Creatinine 1.05 H (0.52-1.04) mg/dL Estimated GFR 61.6 ML/MIN Glucose 104 (74-106) mg/dL Calcium 9.1 (8.4-10.2) mg/dL Total Bilirubin 0.40 (0.2-1.3) mg/dL AST 34 (14-36) U/L ALT 21 (0-35) U/L Alkaline Phosphatase 137 H (38-126) U/L Troponin I (0.000-0.033) ng/mL Serum Total Protein 6.4 (6.3-8.2) g/dL Albumin 3.8 (3.5-5.0) g/dL Lipase 128 (23-300) U/L Urine Color Yellow (Yellow) Urine Appearance Clear (Clear) Urine pH 6.0 (4.6-8.0) Ur Specific [place] >=1.030 A (1.005-1.030) Urine Protein Trace A (Negative) Urine Glucose (UA) Negative (Negative) mg/dL Urine Ketones Negative (Negative) Urine Blood NHT (Negative) Urine Nitrite Negative (Negative) Urine Bilirubin Negative (Negative) Urine Urobilinogen 1.0 A (0.2) mg/dL Ur Leukocyte Esterase Negative (Negative) U Hyaline Cast (Auto) 3-5 A (0-2) /LPF Urine Microscopic RBC 6-10 A (0-5) /HPF Urine Microscopic WBC 0-2 (0-5) /HPF Ur Epithelial Cells None Seen (None Seen) /HPF Urine Bacteria None Seen (None Seen) /HPF Urine Culture Reflexed YES (NO) 01/31/24 02/01/24 02/01/24 Range/Units 22:50 02:10 05:15 WBC (3.98-10.04) x10^3/uL RBC (3.93-5.22) x10^6/uL Hgb (11.2-15.7) g/dL Hct (34.1-44.9) % MCV (79.4-94.8) fL MCH (25.6-32.2) pg MCHC (32.2-35.5) g/dL RDW (11.7-14.4) % Plt Count (182-369) x10^3/uL MPV (9.4-12.3) fL Gran % (34.0-71.1) % Immature Gran % (Auto) (0.001-0.429) % Nucleat RBC Rel Count (0.00-0.2) % Eos # (Auto) (0.04-0.36) x10^3/uL Immature Gran # (Auto) (0.001-0.031) x10^3u/L Absolute Lymphs (auto) (1.18-3.74) x10^3/uL Absolute Monos (auto) (0.24-0.86) x10^3/uL Absolute Nucleated RBC (0.00-0.012) x10^3u/L Lymphocytes % (19.3-51.7) % Monocytes % (4.7-12.5) % Eosinophils % (0.7-5.8) % Basophils % (0.1-1.2) % Absolute Granulocytes (1.56-6.13) x10^3/uL Basophils # (0.01-0.08) x10^3/uL ESR (0-20) mm/hr Sodium (135-145) mmol/L Potassium (3.5-5.1) mmol/L Chloride (98-107) mmol/L Carbon Dioxide (22-30) mmol/L Anion Gap (5-15) MEQ/L BUN (7-17) mg/dL Creatinine (0.52-1.04) mg/dL Estimated GFR ML/MIN Glucose (74-106) mg/dL Calcium (8.4-10.2) mg/dL Total Bilirubin (0.2-1.3) mg/dL AST (14-36) U/L ALT (0-35) U/L Alkaline Phosphatase (38-126) U/L Troponin I 0.803 H* 0.672 H* 0.548 H* (0.000-0.033) ng/mL Serum Total Protein (6.3-8.2) g/dL Albumin (3.5-5.0) g/dL Lipase (23-300) U/L Urine Color (Yellow) Urine Appearance (Clear) Urine pH (4.6-8.0) Ur Specific [place] (1.005-1.030) Urine Protein (Negative) Urine Glucose (UA) (Negative) mg/dL Urine Ketones (Negative) Urine Blood (Negative) Urine Nitrite (Negative) Urine Bilirubin (Negative) Urine Urobilinogen (0.2) mg/dL Ur Leukocyte Esterase (Negative) U Hyaline Cast (Auto) (0-2) /LPF Urine Microscopic RBC (0-5) /HPF Urine Microscopic WBC (0-5) /HPF Ur Epithelial Cells (None Seen) /HPF Urine Bacteria (None Seen) /HPF Urine Culture Reflexed (NO) 02/01/24 02/01/24 02/01/24 Range/Units 05:15 05:15 05:15 WBC 5.2 (3.98-10.04) x10^3/uL RBC 4.19 (3.93-5.22) x10^6/uL Hgb 11.9 (11.2-15.7) g/dL Hct 36.1 (34.1-44.9) % MCV 86.2 (79.4-94.8) fL MCH 28.4 (25.6-32.2) pg MCHC 33.0 (32.2-35.5) g/dL RDW 12.9 (11.7-14.4) % Plt Count 232 (182-369) x10^3/uL MPV 9.9 (9.4-12.3) fL Gran % (34.0-71.1) % Immature Gran % (Auto) (0.001-0.429) % Nucleat RBC Rel Count (0.00-0.2) % Eos # (Auto) (0.04-0.36) x10^3/uL Immature Gran # (Auto) (0.001-0.031) x10^3u/L Absolute Lymphs (auto) (1.18-3.74) x10^3/uL Absolute Monos (auto) (0.24-0.86) x10^3/uL Absolute Nucleated RBC (0.00-0.012) x10^3u/L Lymphocytes % (19.3-51.7) % Monocytes % (4.7-12.5) % Eosinophils % (0.7-5.8) % Basophils % (0.1-1.2) % Absolute Granulocytes (1.56-6.13) x10^3/uL Basophils # (0.01-0.08) x10^3/uL ESR (0-20) mm/hr Sodium 140 (135-145) mmol/L Potassium 3.8 (3.5-5.1) mmol/L Chloride 105 (98-107) mmol/L Carbon Dioxide 26 (22-30) mmol/L Anion Gap 12.4 (5-15) MEQ/L BUN 26 H (7-17) mg/dL Creatinine 0.99 (0.52-1.04) mg/dL Estimated GFR 66.1 ML/MIN Glucose 93 (74-106) mg/dL Calcium 9.0 (8.4-10.2) mg/dL Total Bilirubin (0.2-1.3) mg/dL AST (14-36) U/L ALT (0-35) U/L Alkaline Phosphatase 142 H (38-126) U/L Troponin I (0.000-0.033) ng/mL Serum Total Protein (6.3-8.2) g/dL Albumin (3.5-5.0) g/dL Lipase (23-300) U/L Urine Color (Yellow) Urine Appearance (Clear) Urine pH (4.6-8.0) Ur Specific [place] (1.005-1.030) Urine Protein (Negative) Urine Glucose (UA) (Negative) mg/dL Urine Ketones (Negative) Urine Blood (Negative) Urine Nitrite (Negative) Urine Bilirubin (Negative) Urine Urobilinogen (0.2) mg/dL Ur Leukocyte Esterase (Negative) U Hyaline Cast (Auto) (0-2) /LPF Urine Microscopic RBC (0-5) /HPF Urine Microscopic WBC (0-5) /HPF Ur Epithelial Cells (None Seen) /HPF Urine Bacteria (None Seen) /HPF Urine Culture Reflexed (NO) 02/01/24 02/01/24 Range/Units 09:35 14:55 WBC (3.98-10.04) x10^3/uL RBC (3.93-5.22) x10^6/uL Hgb (11.2-15.7) g/dL Hct (34.1-44.9) % MCV (79.4-94.8) fL MCH (25.6-32.2) pg MCHC (32.2-35.5) g/dL RDW (11.7-14.4) % Plt Count (182-369) x10^3/uL MPV (9.4-12.3) fL Gran % (34.0-71.1) % Immature Gran % (Auto) (0.001-0.429) % Nucleat RBC Rel Count (0.00-0.2) % Eos # (Auto) (0.04-0.36) x10^3/uL Immature Gran # (Auto) (0.001-0.031) x10^3u/L Absolute Lymphs (auto) (1.18-3.74) x10^3/uL Absolute Monos (auto) (0.24-0.86) x10^3/uL Absolute Nucleated RBC (0.00-0.012) x10^3u/L Lymphocytes % (19.3-51.7) % Monocytes % (4.7-12.5) % Eosinophils % (0.7-5.8) % Basophils % (0.1-1.2) % Absolute Granulocytes (1.56-6.13) x10^3/uL Basophils # (0.01-0.08) x10^3/uL ESR 8 (0-20) mm/hr Sodium (135-145) mmol/L Potassium (3.5-5.1) mmol/L Chloride (98-107) mmol/L Carbon Dioxide (22-30) mmol/L Anion Gap (5-15) MEQ/L BUN (7-17) mg/dL Creatinine (0.52-1.04) mg/dL Estimated GFR ML/MIN Glucose (74-106) mg/dL Calcium (8.4-10.2) mg/dL Total Bilirubin (0.2-1.3) mg/dL AST (14-36) U/L ALT (0-35) U/L Alkaline Phosphatase (38-126) U/L Troponin I 0.367 H* (0.000-0.033) ng/mL Serum Total Protein (6.3-8.2) g/dL Albumin (3.5-5.0) g/dL Lipase (23-300) U/L Urine Color (Yellow) Urine Appearance (Clear) Urine pH (4.6-8.0) Ur Specific [place] (1.005-1.030) Urine Protein (Negative) Urine Glucose (UA) (Negative) mg/dL Urine Ketones (Negative) Urine Blood (Negative) Urine Nitrite (Negative) Urine Bilirubin (Negative) Urine Urobilinogen (0.2) mg/dL Ur Leukocyte Esterase (Negative) U Hyaline Cast (Auto) (0-2) /LPF Urine Microscopic RBC (0-5) /HPF Urine Microscopic WBC (0-5) /HPF Ur Epithelial Cells (None Seen) /HPF Urine Bacteria (None Seen) /HPF Urine Culture Reflexed (NO) - Radiology Exams Ordered Rad Exams-Entire Visit: Radiology Procedures Category Date Time Status CHEST 1 VIEW (PORTABLE) Stat Exams 02/01/24 01:03 Completed ECHO W/2D AND DOPPLER [US] Routine Exams 02/01/24 11:30 Taken - Procedures and Test Procedures and Tests throughout Hospitalization: Therapy Orders & Screens 02/01/24 03:31 Respiratory Therapy Consult ONCE Comment: Reason For Exam: Discharge Exam General Appearance: no apparent distress, alert Neurologic Exam: alert, oriented x 3, cooperative, normal mood/affect, nml cerebellar function, sensation nml, No motor deficits Eye Exam: PERRL, EOMI, eyes nml inspection Ears, Nose, Throat Exam: normal ENT inspection, pharynx normal, moist mucous membranes Neck Exam: normal inspection, non-tender, supple, full range of motion Respiratory Exam: normal breath sounds, lungs clear, No respiratory distress Cardiovascular Exam: regular rate/rhythm, normal heart sounds Gastrointestinal/Abdomen Exam: soft, No tenderness, No mass Pelvic Exam: deferred Rectal Exam: deferred Back Exam: normal inspection, normal range of motion, No CVA tenderness, No vertebral tenderness Extremity Exam: normal inspection, normal range of motion Skin Exam: normal color, warm, dry Final Diagnosis/Problem List - Final Discharge Diagnosis/Problem (1) Elevated troponin Current Visit: Yes Status: Acute Assessment & Plan: - Trop x3 trended down - cardiology consulted- note reviewed. - TSH - ECHO- EF 72% with LVH - EKG - tele - denies CP this evening. - Advised low salt diet and exercise - Recent Nuc stress test negative OP- per pt - F/U with Dr. Alvarez- cardiology as scheduled OP Code(s): R79.89 - OTHER SPECIFIED ABNORMAL FINDINGS OF BLOOD CHEMISTRY (2) Epigastric pain Current Visit: Yes Status: Acute Assessment & Plan: - reoslved - f/u with GI OP Code(s): R10.13 - EPIGASTRIC PAIN (3) Abdominal pain Current Visit: No Status: Acute Assessment & Plan: - resolved Code(s): R10.9 - UNSPECIFIED ABDOMINAL PAIN (4) HTN (hypertension) Current Visit: Yes Status: Acute Assessment & Plan: - continue home meds - advised low salt diet and exercise- lifestyle changes - F/U with PCP and cardiology OP - Consider meds changes if lifestyle changes do not help BP - added HCTZ daily Code(s): I10 - ESSENTIAL (PRIMARY) HYPERTENSION (5) Adult BMI 35.0-35.9 kg/sq m Current Visit: Yes Status: Chronic Assessment & Plan: - advised cardiac low Na+ diet and exercise. Code(s): Z68.35 - BODY MASS INDEX [BMI] 35.0-35.9, ADULT - Discharge Discharge Date: 02/01/24 Disposition: Home, Self-Care Condition: Stable Prescriptions: Continue Amlodipine Besylate 5 mg [Norvasc 5 mg] 5 mg PO HS Semaglutide [Ozempic] 2 mg SQ WEEKLY Cholecalciferol (Vitamin D3) [Vitamin D3] 1 cap PO HS Calcium Carbonate [Calcium] 2 tab PO HS PANTOPRAZOLE 40 mg Tablet [Protonix 40MG Tablet] 40 mg PO DAILY Biotin 5,000 mcg PO HS Escitalopram Oxalate [Lexapro] 10 mg PO HS Cyanocobalamin/Folic Acid [Vitamin Z60-Ibrcx Acid Tablet] 1 tab PO HS Ondansetron ODT 4 MG [Zofran Odt 4 mg] 4 mg PO Q6H PRN PRN #10 tablet PRN Reason: Vomiting Liothyronine Sodium 5 mg PO DAILY Levothyroxine Sodium [Tirosint] 137 mcg PO DAILY Follow up with: NURY HINTON DO [Primary Care Provider] - 02/11/24 3:00 pm EDWIN ALVAREZ MD [CONSULTING PHYSICIAN] - 02/18/24 11:00 am ()
[2024-02-01] MEDS ORDERED: Lexapro PO SCH (22:00)
[2024-02-01] MEDS ORDERED: Calcium 500MG W/Vit D Tablet PO SCH (22:00)
[2024-02-01] MEDS ORDERED: NON-FORMULARY ITEM (Calcium Carbonate [Calcium] 600 MG Tablet) PO SCH (22:00)
[2024-02-01] MEDS ORDERED: NORVASC 5 MG PO SCH (22:00)
== END 2024-02-01 17:32 | disposition home or self-care (01) ==
LOC: ED 21:31 → MED SURG 02-01 03:25
PROVIDERS: ADMIT Internal Medicine; ATTEND Internal Medicine
DX: R79.89 Other specified abnormal findings of blood chemistry (principal); R10.13 Epigastric pain; R10.9 Unspecified abdominal pain; I10 Essential (primary) hypertension; E03.9 Hypothyroidism, unspecified; Z68.35 Body mass index [BMI] 35.0-35.9, adult; Z79.899 Other long term (current) drug therapy
CPT/HCPCS: 36000; 36415; 71045; 80048; 80053; 81001; 83690; 84075; 84484; 85025; 85027; 85652; 86140; 87086; 93005; 93268; 93306; 96374; 96375; 99285; J1170; J2405; Q3014; A9270-GY; G0378

== ENCOUNTER 2024-02-22 16:14 | Emergency (ER) | payer BC ==
--- NOTE | 2024-02-22 16:15 | ERPHSYRPT ---
- History of Present Illness Time Seen by Provider: 02/22/24 16:15 Historian: patient, family Exam Limitations: no limitations Physician History: pt had cath this week and found mild CAD not requiring interventions. developed CP rad to back today and called Dr. Raphael who told herto come to ER to r/o dissection and PE. We cannot do both with our CT limitations requiring 2 boluses of contrast - so we will try to contact [facility] in for options there. We will hold ASA at this time due to concerns for dissection. Discussed risks/benefits of testing, Tx, Transfer with pt and spouse, including CXR, EKG, Lactate, CNBC, Trop CMP, Lipase, Amylase, BNP, D Dimer, and they wish to proceed, so these are pursued. Results discussed. Timing/Duration: today Activities at Onset: none Quality: fullness, pressure, sharpness, tightness Location: central, back Chest Pain Radiation: back Severity of Pain-Max: moderate Severity of Pain-Current: moderate Modifying Factors: Improves With: nothing Associated Symptoms: denies symptoms Prior Chest Pain/Cardiac Workup: cardiac cath, recently seen/treated, recent hospitalization Nitro Today/Relief: 0.4 mg x 1, provided by ED Aspirin Treatment Today: no aspirin today (held due to concern for dissection) Allergies/Adverse Reactions: shrimp Allergy (Severe, Verified 02/22/24 16:15) Swelling of Tongue and Lips morphine Adverse Reaction (Mild, Verified 02/22/24 16:15) ITCH Home Medications: Amlodipine Besylate 5 mg [Norvasc 5 mg] 5 mg PO HS 04/20/19 [History] Semaglutide [Ozempic] 1 mg SQ WEEKLY 07/12/22 [History] Calcium Carbonate [Calcium] 2 tab PO HS 01/29/23 [History] Cholecalciferol (Vitamin D3) [Vitamin D3] 1 cap PO HS 01/29/23 [History] Biotin 5,000 mcg PO HS 10/29/23 [History] Cyanocobalamin/Folic Acid [Vitamin V31-Tdodo Acid Tablet] 1 tab PO HS 10/29/23 [History] Escitalopram Oxalate [Lexapro] 10 mg PO HS 10/29/23 [History] PANTOPRAZOLE 40 mg Tablet [Protonix 40MG Tablet] 40 mg PO HS 10/29/23 [History] Levothyroxine Sodium [Tirosint] 137 mcg PO DAILY 01/31/24 [History] Liothyronine Sodium 5 mcg PO DAILY 01/31/24 [History] Aspirin EC 81 mg [Ecotrin 81 mg] 81 mg PO HS 02/22/24 [History] Atorvastatin Calcium 40 mg PO HS 02/22/24 [History] Clopidogrel Bisulfate [PLAVIX Tablet] 75 mg PO HS 02/22/24 [History] Lisinopril 5 mg [Zestril 5 MG] 5 mg PO HS 02/22/24 [History] Metoprolol Succinate 25 mg Xl* [Toprol-Xl 25MG Tablets] 25 mg PO HS 02/22/24 [History] Sucralfate 1 gm [Carafate 1 GM] 1 g PO QID 02/22/24 [History] Hx Tetanus, Diphtheria Vaccination/Date Given: No (unknown) Hx Influenza Vaccination/Date Given: No Hx Pneumococcal Vaccination/Date Given: Yes Travel Risk - Emerging Infectious Disease Are you exhibiting symptoms associated with any current EIDs: Yes Symptoms: Abdominal Pain - Review of Systems Constitutional: No Fever, No Chills Eyes: No Symptoms Ears, Nose, & Throat: No Symptoms Respiratory: Dyspnea, No Cough Cardiac: Chest Pain, No Edema, No Syncope Abdominal/Gastrointestinal: No Abdominal Pain, No Nausea, No Vomiting, No Diarrhea Genitourinary Symptoms: No Dysuria Musculoskeletal: Back Pain, No Neck Pain Skin: No Rash Neurological: No Dizziness, No Focal Weakness, No Sensory Changes Psychological: No Symptoms Endocrine: No Symptoms Hematologic/Lymphatic: No Symptoms Immunological/Allergic: No Symptoms All Other Systems: Reviewed and Negative - Past Medical History Pertinent Past Medical History: Yes Neurological History: Other ENT History: No Pertinent History Cardiac History: No Pertinent History Respiratory History: Pneumonia, Sleep Apnea Endocrine Medical History: Hypothyroidism Musculoskeletal History: No Pertinent History GI Medical History: Gallbladder Disease, Ulcer, Other History: No Pertinent History Psycho-Social History: No Pertinent History Female Reproductive Disorders: Other Other Medical History: N/T into medial side of R foot - Past Surgical History Past Surgical History: Yes Neuro Surgical History: No Pertinent History Cardiac: No Pertinent History Respiratory: No Pertinent History Gastrointestinal: Cholecystectomy Genitourinary: No Pertinent History Musculoskeletal: Other Female Surgical History: Section, Hysterectomy, Lumpectomy Other Surgical History: carpal tunnel- bilateral colonoscopy done last week and ultrasound being done sunday02/04/2024. uterine ablation Significant Family History: no pertinent family hx - Social History Smoking Status: Never smoker Exposure to second hand smoke: No Drug Use: none Patient Lives Alone: No - Social Determinants of Health Will the patient participate in the screening: Yes Do you worry about a steady place to live?: No In the past 12 months,have you had to go without utilities?: No Transportation Issues: No Has anyone in your support network made you feel unsafe?: No Have you or anyone in your house had to go without enough: No - Nursing Vital Signs Nursing Vital Signs: Initial Vital Signs Temperature 97.8 F 02/22/24 16:14 Pulse Rate 70 02/22/24 16:14 Respiratory Rate 16 02/22/24 16:14 Blood Pressure 153/85 02/22/24 16:14 O2 Sat by Pulse Oximetry 97 02/22/24 16:14 Pain Scale Pain Intensity 5 - Physical Exam General Appearance: no apparent distress, alert Eye Exam: PERRL/EOMI, eyes nml inspection Ears, Nose, Throat Exam: normal ENT inspection, moist mucous membranes Neck Exam: normal inspection, non-tender, supple, full range of motion Respiratory Exam: normal breath sounds, lungs clear, No respiratory distress Cardiovascular Exam: regular rate/rhythm, normal heart sounds Gastrointestinal/Abdomen Exam: soft, No tenderness, No mass Pelvic Exam: deferred Rectal Exam: deferred Back Exam: normal inspection, No CVA tenderness, No vertebral tenderness Extremity Exam: normal inspection, normal range of motion Neurologic Exam: alert, oriented x 3, cooperative, normal mood/affect, sensation nml, No motor deficits Skin Exam: normal color, warm, dry - Course Nursing assessment & vital signs reviewed: Yes EKG Interpreted by Me: Sinus Rhythm, NORMAL AXIS, NORMAL INTERVALS, NORMAL QRS, Ischemic ST-T changes, Non-specific ST Changes - Radiology Exams Chest X-ray Interpretation: Interpreted by me (interstitial changes bilaterally), Reviewed by me Ordered Tests: Active Orders 24 hr Category Date Time Status Tobacco Stripper STAT Care 02/22/24 16:23 Active EKG-ER Only STAT Care 02/22/24 16:22 Active IV Insertion STAT Care 02/22/24 16:22 Active Pulse Oximetry (ED) STAT Care 02/22/24 16:22 Active CHEST 1 VIEW (PORTABLE) Stat Exams 02/22/24 16:23 Taken AMYLASE Stat Lab 02/22/24 16:25 Completed CBC W DIFF Stat Lab 02/22/24 16:25 Completed CMP Stat Lab 02/22/24 16:25 Completed D-DIMER QUANTITATIVE Stat Lab 02/22/24 16:25 Completed LIPASE Stat Lab 02/22/24 16:25 Completed Lactic Acid Stat Lab 02/22/24 16:28 Completed NT PRO BNPII Stat Lab 02/22/24 16:25 Completed TROPONIN Q4H Lab 02/22/24 18:15 Ordered TROPONIN Q4H Lab 02/22/24 22:15 Ordered TROPONIN Q4H Lab 02/23/24 02:15 Ordered Medication Summary Generic Name Dose Route Start Last Admin Trade Name Freq PRN Reason Stop Dose Admin Hydromorphone HCl 1 mg 02/22/24 18:04 Hydromorphone 1 Mg/1ml Inj IV 02/22/24 18:05 STAT ONE Discontinued Medications Generic Name Dose Route Start Last Admin Trade Name Freq PRN Reason Stop Dose Admin Nitroglycerin 0.4 mg 02/22/24 16:22 02/22/24 16:40 Nitroglycerin 0.4 Mg (Ed) 0.4 Mg Tab.Subl SL 02/22/24 16:23 0.4 mg STAT ONE Administration Nitroglycerin Confirm 02/22/24 16:40 Nitroglycerin 0.4 Mg (Ed) 0.4 Mg Tab.Subl Administered 02/22/24 16:41 Dose 0.4 mg SL .STK-MED ONE Lab/Rad Data: Laboratory Result Diagrams 02/22/24 16:25 02/22/24 16:25 Laboratory Results 02/22/24 02/22/24 02/22/24 Range/Units 16:28 16:25 16:25 WBC (3.98-10.04) x10^3/uL RBC (3.93-5.22) x10^6/uL Hgb (11.2-15.7) g/dL Hct (34.1-44.9) % MCV (79.4-94.8) fL MCH (25.6-32.2) pg MCHC (32.2-35.5) g/dL RDW (11.7-14.4) % Plt Count (182-369) x10^3/uL MPV (9.4-12.3) fL Gran % (34.0-71.1) % Immature Gran % (Auto) (0.001-0.429) % Nucleat RBC Rel Count (0.00-0.2) % Eos # (Auto) (0.04-0.36) x10^3/uL Immature Gran # (Auto) (0.001-0.031) x10^3u/L Absolute Lymphs (auto) (1.18-3.74) x10^3/uL Absolute Monos (auto) (0.24-0.86) x10^3/uL Absolute Nucleated RBC (0.00-0.012) x10^3u/L Lymphocytes % (19.3-51.7) % Monocytes % (4.7-12.5) % Eosinophils % (0.7-5.8) % Basophils % (0.1-1.2) % Absolute Granulocytes (1.56-6.13) x10^3/uL Basophils # (0.01-0.08) x10^3/uL D-Dimer 0.30 (0.0-0.50) mg/L Sodium 138 (135-145) mmol/L Potassium 4.0 (3.5-5.1) mmol/L Chloride 103 (98-107) mmol/L Carbon Dioxide 26 (22-30) mmol/L Anion Gap 13.8 (5-15) MEQ/L BUN 30 H (7-17) mg/dL Creatinine 1.09 H (0.52-1.04) mg/dL Estimated GFR 58.9 ML/MIN Glucose 101 (74-106) mg/dL Lactic Acid 1.4 (0.4-2.0) Calcium 9.6 (8.4-10.2) mg/dL Total Bilirubin 0.40 (0.2-1.3) mg/dL AST 32 (14-36) U/L ALT 23 (0-35) U/L Alkaline Phosphatase 155 H (38-126) U/L NT-Pro-B Natriuret Pep 732 (<300) pg/mL Serum Total Protein 7.3 (6.3-8.2) g/dL Albumin 4.4 (3.5-5.0) g/dL Amylase 131 H (30-110) U/L Lipase 280 (23-300) U/L 02/22/24 Range/Units 16:25 WBC 7.7 (3.98-10.04) x10^3/uL RBC 4.69 (3.93-5.22) x10^6/uL Hgb 13.3 (11.2-15.7) g/dL Hct 38.7 (34.1-44.9) % MCV 82.5 (79.4-94.8) fL MCH 28.4 (25.6-32.2) pg MCHC 34.4 (32.2-35.5) g/dL RDW 13.1 (11.7-14.4) % Plt Count 274 (182-369) x10^3/uL MPV 10.4 (9.4-12.3) fL Gran % 57.4 (34.0-71.1) % Immature Gran % (Auto) 0.1 (0.001-0.429) % Nucleat RBC Rel Count 0.0 (0.00-0.2) % Eos # (Auto) 0.21 (0.04-0.36) x10^3/uL Immature Gran # (Auto) 0.01 (0.001-0.031) x10^3u/L Absolute Lymphs (auto) 2.49 (1.18-3.74) x10^3/uL Absolute Monos (auto) 0.53 (0.24-0.86) x10^3/uL Absolute Nucleated RBC 0.00 (0.00-0.012) x10^3u/L Lymphocytes % 32.5 (19.3-51.7) % Monocytes % 6.9 (4.7-12.5) % Eosinophils % 2.7 (0.7-5.8) % Basophils % 0.4 (0.1-1.2) % Absolute Granulocytes 4.38 (1.56-6.13) x10^3/uL Basophils # 0.03 (0.01-0.08) x10^3/uL D-Dimer (0.0-0.50) mg/L Sodium (135-145) mmol/L Potassium (3.5-5.1) mmol/L Chloride (98-107) mmol/L Carbon Dioxide (22-30) mmol/L Anion Gap (5-15) MEQ/L BUN (7-17) mg/dL Creatinine (0.52-1.04) mg/dL Estimated GFR ML/MIN Glucose (74-106) mg/dL Lactic Acid (0.4-2.0) Calcium (8.4-10.2) mg/dL Total Bilirubin (0.2-1.3) mg/dL AST (14-36) U/L ALT (0-35) U/L Alkaline Phosphatase (38-126) U/L NT-Pro-B Natriuret Pep (<300) pg/mL Serum Total Protein (6.3-8.2) g/dL Albumin (3.5-5.0) g/dL Amylase (30-110) U/L Lipase (23-300) U/L - Progress Progress: improved, re-examined Air Movement: good Progress Note: 02/22/24 17:47 call palced to [facility] to consult cardio and consider transfer since we cannot rule out both dissection and PE here with our imaging. 02/22/24 18:[address] Silverio at [facility] and they accept in transfer for Cardio. Pt and family also agree this is best. Blood Culture(s) Obtained: No Antibiotics given: No Discussed with Dr.: Other (Dr. Jean at [facility] hospitalist) Will see patient in: hospital (observation) Counseled pt/family regarding: lab results, diagnosis, need for follow-up, rad results Medical Desision Making - Independent Historian Additional History obtained from: Spouse - Discussion of managment Care discussed with:: hospitalist Reviewed:: Test results, Need for additional workup Agreed on:: Treatment plan, need for follow-up, decision to admit, place in obs Will see patient: in hospital - Diagnostic Testing Diagnostic test were ordered, analyzed, and reviewed by me: Yes Radiological Interpretation: Interpreted by me, Reviewed by me - Risk of complications The pt has a mod risk of morbidity or mortality based on: Need for prescription drug management The pt has a high risk of morbidity or mortality based on: Decision regarding hospitilization or escalation of hosp level of care - Departure Departure Disposition: Transfer Clinical Impression: Chest pain Condition: Good Critical Care Time: No Referrals: NURY HINTON, [Primary Care Provider] - Follow up/PCP as directed
[2024-02-22 16:40] VITALS: TEMP 97.8
[2024-02-22] MEDS: Nitrostat 0.4 MG (ED) SL ONE (16:40)
[2024-02-22] MEDS ORDERED: Nitrostat 0.4 MG (ED) SL ONE (16:40)
[2024-02-22 16:44] LABS: Absolute Neutrophil Ct (ANC) 4.38 x10^3/uL (1.56-6.13); BASOPHIL % 0.4 % (0.1-1.2); Basophil (Absolute #) 0.03 x10^3/uL (0.01-0.08); Eosinophil % 2.7 % (0.7-5.8); Eosinophil (Absolute #) 0.21 x10^3/uL (0.04-0.36); Hematocrit 38.7 % (34.1-44.9); Hemoglobin 13.3 g/dL (11.2-15.7); IMMATURE GRAN # 0.01 x10^3u/L (0.001-0.031); IMMATURE GRAN % 0.1 % (0.001-0.429); Lymphocyte (Absolute #) 2.49 x10^3/uL (1.18-3.74); Lymphocytes % 32.5 % (19.3-51.7); Mean Cell Volume 82.5 fL (79.4-94.8); Mean Corpuscular Hemoglobin 28.4 pg (25.6-32.2); Mean Corpuscular Hgb Concent. 34.4 g/dL (32.2-35.5); Mean Platelet Volume 10.4 fL (9.4-12.3); Monocyte (Absolute #) 0.53 x10^3/uL (0.24-0.86); Monocytes % 6.9 % (4.7-12.5); Neutrophil % 57.4 % (34.0-71.1); Platelet Count 274 x10^3/uL (182-369); Red Blood Count 4.69 x10^6/uL (3.93-5.22); Red Cell Distribution Width 13.1 % (11.7-14.4); White Blood Count 7.7 x10^3/uL (3.98-10.04)
[2024-02-22 17:07] LABS: ALBUMIN 4.4 g/dL (3.5-5.0); ANION GAP 13.8 MEQ/L (5-15); BILIRUBIN,TOTAL 0.4 mg/dL (0.2-1.3); Calcium 9.6 mg/dL (8.4-10.2); Creatinine 1 1.09 mg/dL (0.52-1.04); EST GLOMERULAR FILTRATION RATE 58.9 ML/MIN; Total Protein 7.3 g/dL (6.3-8.2)
[2024-02-22] MEDS ORDERED: Hydromorphone 1 mg/ml Injection ONE (18:07)
[2024-02-22] MEDS: Hydromorphone 1 mg/ml Injection IV ONE (18:08)
[2024-02-22 19:35] VITALS: BP 148/78; PULSE 68; RESP 17; O2SAT 94
--- NOTE | 2024-02-22 22:26 | XRAY ---
Indication: Chest pain. Comparison: February 01, 2024 Portable chest again demonstrates normal heart and lungs with incidental small/tiny calcified granulomas. No new/acute findings.
== END 2024-02-22 19:27 | disposition short-term general hospital (02) ==
LOC: ED 16:14
DX: R07.9 Chest pain, unspecified (principal); Z79.85 Long-term (current) use of injectable non-insulin antidiabetic drugs; Z79.02 Long term (current) use of antithrombotics/antiplatelets; Z79.899 Other long term (current) drug therapy
CPT/HCPCS: 36000; 36415; 71045; 80053; 82150; 83605; 83690; 83880; 84484; 85025; 85379; 93005; 93041; 94760; 96374; 99285; J1171; A9270-GY

== ENCOUNTER 2024-04-07 16:03 | Emergency (ER) | payer BC ==
[2024-04-07 16:38] VITALS: TEMP 97.7
[2024-04-07 16:50] LABS: Absolute Neutrophil Ct (ANC) 5.31 x10^3/uL (1.56-6.13); BASOPHIL % 0.3 % (0.1-1.2); Basophil (Absolute #) 0.03 x10^3/uL (0.01-0.08); Eosinophil % 2.3 % (0.7-5.8); Eosinophil (Absolute #) 0.22 x10^3/uL (0.04-0.36); Hematocrit 40.1 % (34.1-44.9); Hemoglobin 13.3 g/dL (11.2-15.7); IMMATURE GRAN # 0.05 x10^3u/L (0.001-0.031); IMMATURE GRAN % 0.5 % (0.001-0.429); Mean Cell Volume 85.9 fL (79.4-94.8); Mean Corpuscular Hemoglobin 28.5 pg (25.6-32.2); Mean Corpuscular Hgb Concent. 33.2 g/dL (32.2-35.5); Mean Platelet Volume 9.5 fL (9.4-12.3); Monocyte (Absolute #) 0.76 x10^3/uL (0.24-0.86); Monocytes % 8.1 % (4.7-12.5); Neutrophil % 56.8 % (34.0-71.1); Platelet Count 302 x10^3/uL (182-369); Red Blood Count 4.67 x10^6/uL (3.93-5.22); Red Cell Distribution Width 13.5 % (11.7-14.4); White Blood Count 9.4 x10^3/uL (3.98-10.04)
[2024-04-07 17:09] LABS: ALBUMIN 3.9 g/dL (3.5-5.0); ANION GAP 9.7 MEQ/L (5-15); BILIRUBIN,TOTAL 0.3 mg/dL (0.2-1.3); Calcium 8.9 mg/dL (8.4-10.2); Creatinine 1 1.44 mg/dL (0.52-1.04); EST GLOMERULAR FILTRATION RATE 42.2 ML/MIN; Potassium 3.8 mmol/L (3.5-5.1); Total Protein 6.7 g/dL (6.3-8.2)
--- NOTE | 2024-04-07 17:10 | XRAY ---
Indication: Chest pain. Portable chest again demonstrates normal heart and lungs with incidental bilateral calcified granulomas, unchanged compared to exam 5 days ago. No new/acute findings.
[2024-04-07] MEDS ORDERED: TORAdol 30 mg Injection ONE (17:30)
[2024-04-07] MEDS ORDERED: BABY ASPIRIN 81 MG CHEW ONE (17:30)
[2024-04-07] MEDS ORDERED: BENADRYL 50 MG/ML ONE (17:30)
[2024-04-07] MEDS: BABY ASPIRIN 81 MG CHEW PO ONE (17:35)
[2024-04-07] MEDS: TORAdol 30 mg Injection IV ONE (17:41)
[2024-04-07] MEDS: BENADRYL 50 MG/ML IV ONE (17:43)
[2024-04-07] MEDS ORDERED: Sodium Chloride 0.9% 1000 ML 1,000 ML ONE (17:49)
[2024-04-07] MEDS: Sodium Chloride 0.9% 1000 ML 1,000 ML IV STA (17:50)
--- NOTE | 2024-04-07 19:04 | ERPHSYRPT ---
- History of Present Illness Source: patient Exam Limitations: no limitations Patient Subjective Stated Complaint: C/O intermittent chest pain that started a few hours ago while patient was at work; not exerting herself. Denies N/V. Pain radiates down right arm when it occurs. Triage Nursing Assessment: Patient ambulated back to ER without difficulties. No SOB. PARR WNL. Skin tone normal. Hx Tetanus, Diphtheria Vaccination/Date Given: Yes Hx Influenza Vaccination/Date Given: No Hx Pneumococcal Vaccination/Date Given: Yes Immunizations Up to Date: Yes <SUSAN HADLEY - Last Filed: 04/07/24 18:59> <MARY GRIFFIN - Last Filed: 04/07/24 19:49> - History of Present Illness Time Seen by Provider: 04/07/24 16:14 Physician History: Patient is here with intermittent chest pain for the past few hours at work. Midsternal. Nonradiating. Patient states that she does have some recent cardiac history. She states approximately 1 month ago she did have some chest pain with elevated troponins. Therefore she did obtain a cardiac cath. Per the overnight associate patient had a normal cardiac cath with nothing that needed to be stented. States that amount of blockage was expected for patient's age. Patient since then has been on Plavix and aspirin. She has not missed any doses of her medication. She has had no other shortness of breath, nausea, vomiting. Patient is taking PO well. Same number of urinations and defecations. The patient has no signs of altered mental status, nuchal rigidity, signs of meningitis. The patient is up-to-date on all vaccinations. (SUSAN HADLEY) Allergies/Adverse Reactions: shrimp Allergy (Severe, Verified 04/07/24 16:30) Swelling of Tongue and Lips morphine Adverse Reaction (Mild, Verified 04/07/24 16:30) ITCH Home Medications: Amlodipine Besylate 5 mg [Norvasc 5 mg] 5 mg PO HS 04/20/19 [History] Semaglutide [Ozempic] 1 mg SQ WEEKLY 07/12/22 [History] Calcium Carbonate [Calcium] 2 tab PO HS 01/29/23 [History] Cholecalciferol (Vitamin D3) [Vitamin D3] 1 cap PO HS 01/29/23 [History] Biotin 5,000 mcg PO HS 10/29/23 [History] Cyanocobalamin/Folic Acid [Vitamin D04-Scwpd Acid Tablet] 1 tab PO HS 10/29/23 [History] Escitalopram Oxalate [Lexapro] 10 mg PO HS 10/29/23 [History] PANTOPRAZOLE 40 mg Tablet [Protonix 40MG Tablet] 40 mg PO HS 10/29/23 [History] Levothyroxine Sodium [Tirosint] 137 mcg PO DAILY 01/31/24 [History] Liothyronine Sodium 5 mcg PO DAILY 01/31/24 [History] Aspirin EC 81 mg [Ecotrin 81 mg] 81 mg PO HS 02/22/24 [History] Atorvastatin Calcium 40 mg PO HS 02/22/24 [History] Clopidogrel Bisulfate [PLAVIX Tablet] 75 mg PO HS 02/22/24 [History] Lisinopril 5 mg [Zestril 5 MG] 5 mg PO HS 02/22/24 [History] Metoprolol Succinate 25 mg Xl* [Toprol-Xl 25MG Tablets] 25 mg PO HS 02/22/24 [History] Sucralfate 1 gm [Carafate 1 GM] 1 g PO QID 02/22/24 [History] Travel Risk - International Travel Have you traveled outside of the country in past 3 weeks: No - Emerging Infectious Disease Are you exhibiting symptoms associated with any current EIDs: No Symptoms: Abdominal Pain <SUSAN HADLEY - Last Filed: 04/07/24 18:59> - Past Medical History Pertinent Past Medical History: Yes Neurological History: Other ENT History: No Pertinent History Cardiac History: No Pertinent History Respiratory History: Pneumonia, Sleep Apnea Endocrine Medical History: Hypothyroidism Musculoskeletal History: No Pertinent History GI Medical History: Gallbladder Disease, Ulcer, Other History: No Pertinent History Psycho-Social History: No Pertinent History Female Reproductive Disorders: Other Other Medical History: N/T into medial side of R foot, 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 - Past Surgical History Past Surgical History: Yes Neuro Surgical History: No Pertinent History Cardiac: Cardiac Catheterization Respiratory: No Pertinent History Gastrointestinal: Cholecystectomy Genitourinary: No Pertinent History Musculoskeletal: Other Female Surgical History: Section, Hysterectomy, Lumpectomy Other Surgical History: carpal tunnel- bilateral, uterine ablation Significant Family History: no pertinent family hx - Social History Smoking Status: Never smoker Exposure to second hand smoke: No Drug Use: none Patient Lives Alone: No - Social Determinants of Health Will the patient participate in the screening: Yes Do you worry about a steady place to live?: No Do you have any problems with any of the following?: No known problems In the past 12 months,have you had to go without utilities?: No Transportation Issues: No Has anyone in your support network made you feel unsafe?: No Have you or anyone in your house had to go without enough: No <SUSAN HADLEY - Last Filed: 04/07/24 18:59> - Physical Exam SpO2 Interpretation: normal SpO2: 100 <SUSAN HADLEY - Last Filed: 04/07/24 18:59> - Nursing Vital Signs Nursing Vital Signs: Initial Vital Signs O2 Sat by Pulse Oximetry 99 04/07/24 16:12 Pain Scale Pain Intensity 8 - Physical Exam Comments: 04/07/24 19:01 Review of Systems Constitutional: Negative for fever. HENT: Negative for congestion. Respiratory: Negative for shortness of breath. Cardiovascular: Chest pain Gastrointestinal: Negative for abdominal pain. Genitourinary: Negative for dysuria. Musculoskeletal: Negative for back pain. Skin: Negative for rash. Neurological: Negative for headaches. Psychiatric/Behavioral: Negative for behavioral problems. All other systems reviewed and are negative. Physical Exam Vitals signs and nursing note reviewed. Constitutional: Appearance: Patient is well-developed. HENT: Head: Normocephalic and atraumatic. Eyes: Conjunctiva/sclera: Conjunctivae normal. Neck: Musculoskeletal: Normal range of motion. Trachea: No tracheal deviation. Cardiovascular: Rate and Rhythm: Normal rate. Pulmonary: Effort: Pulmonary effort is normal. No respiratory distress. Abdominal: Palpations: Abdomen is soft. Musculoskeletal: General: No deformity. Skin: General: Skin is warm and dry. Neurological/ Psychiatric: Mental Status: Mental status, behavior, interaction with environment is appropriate for patient's age and condition (SUSAN HADLEY) - Course Nursing assessment & vital signs reviewed: Yes EKG Interpreted by Me: Sinus Rhythm (EKG demonstrates sinus rhythm, rate of 70, SD interval 188, QRS 85, QTc is 439, patient has some minimal ST elevation throughout the inferior leads. No inverted T waves.) <SUSAN HADLEY JulioStalin - Last Filed: 04/07/24 18:59> Ordered Tests: Active Orders 24 hr Category Date Time Status EKG-ER Only STAT Care 04/07/24 16:43 Active IV Insertion STAT Care 04/07/24 16:43 Active CHEST 1 VIEW (PORTABLE) Stat Exams 04/07/24 16:45 Completed CBC W DIFF Stat Lab 04/07/24 16:15 Completed CMP Stat Lab 04/07/24 16:15 Completed D-DIMER QUANTITATIVE Stat Lab 04/07/24 16:15 Completed LIPASE Stat Lab 04/07/24 16:15 Completed NT PRO BNPII Stat Lab 04/07/24 16:15 Completed TROPONIN Q4H Lab 04/07/24 16:15 Completed TROPONIN Q4H Lab 04/07/24 19:00 Completed TROPONIN Q4H Lab 04/08/24 00:45 Ordered Medication Summary Discontinued Medications Generic Name Dose Route Start Last Admin Trade Name Freq PRN Reason Stop Dose Admin Aspirin 324 mg 04/07/24 16:43 04/07/24 17:35 Aspirin 81 Mg Tab.Chew PO 04/07/24 16:44 324 mg STAT ONE Administration Aspirin Confirm 04/07/24 17:30 Aspirin 81 Mg Tab.Chew Administered 04/07/24 17:31 Dose 324 mg .ROUTE .STK-MED ONE Diphenhydramine HCl 25 mg 04/07/24 16:46 04/07/24 17:43 Diphenhydramine Hcl 50 Mg/Ml Vial IV 04/07/24 16:47 25 mg STAT ONE Administration Diphenhydramine HCl Confirm 04/07/24 17:30 Diphenhydramine Hcl 50 Mg/Ml Vial Administered 04/07/24 17:31 Dose 50 mg .ROUTE .STK-MED ONE Droperidol 1.25 mg 04/07/24 16:46 04/07/24 17:45 Droperidol 5 Mg/2 Ml Vial IV 04/07/24 16:47 1.25 mg STAT ONE Administration Droperidol Confirm 04/07/24 17:30 Droperidol 5 Mg/2 Ml Vial Administered 04/07/24 17:31 Dose 5 mg .ROUTE .STK-MED ONE Sodium Chloride 1,000 mls @ 999 mls/hr 04/07/24 17:47 04/07/24 19:02 Sodium Chloride 0.9% 1000 Ml IV 04/07/24 18:47 Infused .Q1H1M STA Infusion Sodium Chloride Confirm 04/07/24 17:49 Sodium Chloride 0.9% 1000 Ml Administered 04/07/24 17:50 Dose 1,000 mls @ ud .ROUTE .STK-MED ONE Ketorolac Tromethamine 30 mg 04/07/24 16:46 04/07/24 17:41 Ketorolac Tromethamine 30 Mg/Ml Inj IV 04/07/24 16:47 30 mg STAT ONE Administration Ketorolac Tromethamine Confirm 04/07/24 17:30 Ketorolac Tromethamine 30 Mg/Ml Inj Administered 04/07/24 17:31 Dose 30 mg .ROUTE .STK-MED ONE Lab/Rad Data: Laboratory Result Diagrams 04/07/24 16:15 04/07/24 16:15 Laboratory Results 04/07/24 04/07/24 04/07/24 Range/Units 19:00 16:15 16:15 WBC (3.98-10.04) x10^3/uL RBC (3.93-5.22) x10^6/uL Hgb (11.2-15.7) g/dL Hct (34.1-44.9) % MCV (79.4-94.8) fL MCH (25.6-32.2) pg MCHC (32.2-35.5) g/dL RDW (11.7-14.4) % Plt Count (182-369) x10^3/uL MPV (9.4-12.3) fL Gran % (34.0-71.1) % Immature Gran % (Auto) (0.001-0.429) % Nucleat RBC Rel Count (0.00-0.2) % Eos # (Auto) (0.04-0.36) x10^3/uL Immature Gran # (Auto) (0.001-0.031) x10^3u/L Absolute Lymphs (auto) (1.18-3.74) x10^3/uL Absolute Monos (auto) (0.24-0.86) x10^3/uL Absolute Nucleated RBC (0.00-0.012) x10^3u/L Lymphocytes % (19.3-51.7) % Monocytes % (4.7-12.5) % Eosinophils % (0.7-5.8) % Basophils % (0.1-1.2) % Absolute Granulocytes (1.56-6.13) x10^3/uL Basophils # (0.01-0.08) x10^3/uL D-Dimer 0.23 (0.0-0.50) mg/L Sodium (135-145) mmol/L Potassium (3.5-5.1) mmol/L Chloride (98-107) mmol/L Carbon Dioxide (22-30) mmol/L Anion Gap (5-15) MEQ/L BUN (7-17) mg/dL Creatinine (0.52-1.04) mg/dL Estimated GFR ML/MIN Glucose (74-106) mg/dL Calcium (8.4-10.2) mg/dL Total Bilirubin (0.2-1.3) mg/dL AST (14-36) U/L ALT (0-35) U/L Alkaline Phosphatase (38-126) U/L Troponin I < 0.012 < 0.012 (0.000-0.033) ng/mL NT-Pro-B Natriuret Pep (<300) pg/mL Serum Total Protein (6.3-8.2) g/dL Albumin (3.5-5.0) g/dL Lipase (23-300) U/L 04/07/24 04/07/24 Range/Units 16:15 16:15 WBC 9.4 (3.98-10.04) x10^3/uL RBC 4.67 (3.93-5.22) x10^6/uL Hgb 13.3 (11.2-15.7) g/dL Hct 40.1 (34.1-44.9) % MCV 85.9 (79.4-94.8) fL MCH 28.5 (25.6-32.2) pg MCHC 33.2 (32.2-35.5) g/dL RDW 13.5 (11.7-14.4) % Plt Count 302 (182-369) x10^3/uL MPV 9.5 (9.4-12.3) fL Gran % 56.8 (34.0-71.1) % Immature Gran % (Auto) 0.5 H (0.001-0.429) % Nucleat RBC Rel Count 0.0 (0.00-0.2) % Eos # (Auto) 0.22 (0.04-0.36) x10^3/uL Immature Gran # (Auto) 0.05 H (0.001-0.031) x10^3u/L Absolute Lymphs (auto) 3.00 (1.18-3.74) x10^3/uL Absolute Monos (auto) 0.76 (0.24-0.86) x10^3/uL Absolute Nucleated RBC 0.00 (0.00-0.012) x10^3u/L Lymphocytes % 32.0 (19.3-51.7) % Monocytes % 8.1 (4.7-12.5) % Eosinophils % 2.3 (0.7-5.8) % Basophils % 0.3 (0.1-1.2) % Absolute Granulocytes 5.31 (1.56-6.13) x10^3/uL Basophils # 0.03 (0.01-0.08) x10^3/uL D-Dimer (0.0-0.50) mg/L Sodium 136 (135-145) mmol/L Potassium 3.8 (3.5-5.1) mmol/L Chloride 103 (98-107) mmol/L Carbon Dioxide 27 (22-30) mmol/L Anion Gap 9.7 (5-15) MEQ/L BUN 32 H (7-17) mg/dL Creatinine 1.44 H (0.52-1.04) mg/dL Estimated GFR 42.2 ML/MIN Glucose 82 (74-106) mg/dL Calcium 8.9 (8.4-10.2) mg/dL Total Bilirubin 0.30 (0.2-1.3) mg/dL AST 32 (14-36) U/L ALT 18 (0-35) U/L Alkaline Phosphatase 184 H (38-126) U/L Troponin I (0.000-0.033) ng/mL NT-Pro-B Natriuret Pep 173 (<300) pg/mL Serum Total Protein 6.7 (6.3-8.2) g/dL Albumin 3.9 (3.5-5.0) g/dL Lipase 338 H (23-300) U/L - Progress Progress: improved Counseled pt/family regarding: lab results, diagnosis, need for follow-up, rad results <SUSAN HADLEY - Last Filed: 04/07/24 18:59> <MARY GRIFFIN - Last Filed: 04/07/24 19:49> - Progress Progress Note: 04/07/24 19:02 Differential diagnosis includes: PNA, STEMI, NSTEMI, other infection, musculoskeletal pain, pneumothorax - We'll obtain basic labs, fluids, EKG, troponin, chest x-ray - EKG shows minimal nonspecific ST changes - my read - O2 saturations consistently greater than 95%. - CXR shows no pneumonia, pneumothorax - my read Reevaluation: Patient's first troponin negative. First EKG did have some abnormalities. D- dimer negative. Chest x-ray negative. Patient does have a slight elevation in her creatinine and lipase. Certainly could be causing some of her issues. Patient may have a mild pancreatitis with some dehydration. Therefore patient was given fluids and nausea medication. Patient does feel much improved. At this time, second troponin pending, repeat EKG pending. Transfer of care to Dr. Griffin at 7 PM. He will follow-up on all labs and imaging. Disposition appropriately from these. Consider contacting cardiology given all of her recent issues. (SUSAN HADLEY) 04/07/24 19:17 I took over the care of this patient at approximately [address] Hdaley had interpreted the original/initial twelve-lead EKG as did I. The initial twelve-lead EKG was performed on 04/07/2024 at 1608. It shows a heart rate of 70 bpm and normal sinus rhythm. The QTc is 439. There is normal axis deviation, normal intervals and normal QRS. I do not appreciate ST elevation or any other acute findings in the initial twelve-lead EKG. Comparatively, the repeat twelve-lead EKG was performed on 04/07/2024 at 1908. It shows a heart rate of 76 bpm and normal sinus rhythm. There is no evidence for ST elevation or any other acute ischemic changes. The QT interval is 483. There is normal axis deviation, normal intervals and normal QRS. Per Dr. Hadley, if the second twelve-lead EKG and the repeat troponin level are normal the patient can be discharged home. 04/07/24 19:48 Reexamined the patient. She no longer has chest pain. She wants to go home. The second, 3-hour, troponin is negative/normal (MARY GRIFFIN) Medical Desision Making - Independent Historian Additional History obtained from: Spouse - Diagnostic Testing Diagnostic test were ordered, analyzed, and reviewed by me: Yes Radiological Interpretation: Reviewed by me, Teleradiologist Report - Risk of complications Low Risk: Low risk of morbidity from additional dx testing or treatment <MARY GRIFFIN - Last Filed: 04/07/24 19:49> - Departure Critical Care Time: No <SUSAN HADLEY - Last Filed: 04/07/24 18:59> - Departure Departure Disposition: Home Critical Care Time: No <MARY GRIFFIN - Last Filed: 04/07/24 19:49> - Departure Clinical Impression: Midsternal chest pain, Elevated lipase, Elevated serum creatinine Condition: Stable Referrals: NURY HINTON DO [Primary Care Provider] - Follow up/PCP as directed Additional Instructions: Drink plenty of clear liquids. Avoid fatty greasy spicy foods. Call your primary care provider and overnight associate tomorrow, 04/08/2024 to make arrangements for follow-up appointment for further evaluation and management.
[2024-04-07 19:13] VITALS: PULSE 74
[2024-04-07 19:20] VITALS: RESP 16
[2024-04-07 19:57] VITALS: BP 146/79; O2SAT 97
== END 2024-04-07 19:57 | disposition home or self-care (01) ==
LOC: ED 16:03
DX: R07.9 Chest pain, unspecified (principal); R79.89 Other specified abnormal findings of blood chemistry; Z79.01 Long term (current) use of anticoagulants
CPT/HCPCS: 36415; 71045; 80053; 83690; 83880; 84484; 85025; 85379; 93005; 96374; 96375; 99284; 99285; J1200; J1885; A9270-GY

== ENCOUNTER 2024-07-16 08:09 | Day surgery (SDC) | payer BC ==
[2024-07-16] MEDS ORDERED: celeBREX 100 MG ONE (08:19)
[2024-07-16] MEDS ORDERED: TYLENOL EXTRA STRENGTH 500 MG ONE (08:19)
[2024-07-16] MEDS ORDERED: NEURONTIN ONE (08:19)
[2024-07-16] MEDS ORDERED: Decadron 4 MG ONE (08:19)
[2024-07-16] MEDS ORDERED: Lactated Ringers 1,000 ML IV ONE (08:19)
[2024-07-16] MEDS: Decadron 4 MG PO ONE (08:29)
[2024-07-16] MEDS: celeBREX 100 MG PO ONE (08:29)
[2024-07-16] MEDS: Lactated Ringers 1,000 ML IV SCH (08:29)
[2024-07-16] MEDS: NEURONTIN PO ONE (08:29)
[2024-07-16] MEDS: TYLENOL EXTRA STRENGTH 500 MG PO ONE (08:29)
[2024-07-16 08:49] LABS: Hematocrit 39.7 % (34.1-44.9); Hemoglobin 13.2 g/dL (11.2-15.7); Mean Cell Volume 84.8 fL (79.4-94.8); Mean Corpuscular Hemoglobin 28.2 pg (25.6-32.2); Mean Corpuscular Hgb Concent. 33.2 g/dL (32.2-35.5); Mean Platelet Volume 9.2 fL (9.4-12.3); Platelet Count 228 x10^3/uL (182-369); Red Blood Count 4.68 x10^6/uL (3.93-5.22); Red Cell Distribution Width 12.6 % (11.7-14.4); White Blood Count 6.3 x10^3/uL (3.98-10.04)
[2024-07-16 08:56] VITALS: RESP 16; O2SAT 97
[2024-07-16 09:01] LABS: ALBUMIN 3.9 g/dL (3.5-5.0); ANION GAP 10.5 MEQ/L (5-15); BILIRUBIN,TOTAL 0.5 mg/dL (0.2-1.3); Calcium 8.8 mg/dL (8.4-10.2); Creatinine 1 0.95 mg/dL (0.52-1.04); EST GLOMERULAR FILTRATION RATE 69.5 ML/MIN; Potassium 4.1 mmol/L (3.5-5.1); Total Protein 6.2 g/dL (6.3-8.2)
[2024-07-16] MEDS ORDERED: Xylocaine-Mpf 2% 5 Ml Vial ONE (09:25)
[2024-07-16] MEDS ORDERED: Zofran 4 MG/2 ML VIAL ONE (09:25)
[2024-07-16] MEDS ORDERED: propofoL IV ONE (09:25)
[2024-07-16] MEDS ORDERED: dexAMETHasone sodium phosphate ONE (09:25)
[2024-07-16] MEDS ORDERED: SUBLIMAZE 100 MCG/2 ML ONE ×2 (09:26→12:07)
[2024-07-16] MEDS ORDERED: CEFAZOLIN 2 GM/100 ML NaCl 2 GM/100 ML IVPB IV ONE (09:42)
[2024-07-16] MEDS: CEFAZOLIN 2 GM/100 ML NaCl 2 GM/100 ML IVPB IV SCH (09:43)
[2024-07-16] MEDS ORDERED: Epinephrine Preservative Free 1 MG/ML ONE (09:44)
[2024-07-16] MEDS ORDERED: MARCAINE 0.25% PF/ EPI 1:200,000 ONE ×2 (10:51→11:28)
[2024-07-16 13:03] VITALS: BP 119/71; PULSE 80; TEMP 97
--- NOTE | 2024-07-17 13:30 | OP ---
DATE OF SURGERY: 07/16/2024 2005-1502 PREOPERATIVE DIAGNOSES: 1) Right knee pain. 2) Right knee medial meniscus tear. POSTOPERATIVE DIAGNOSES: 1) Right knee pain. 2) Right knee medial meniscus tear. PROCEDURE PERFORMED: 1) Right knee diagnostic arthroscopy. 2) Partial medial meniscectomy, right knee. INDICATIONS: This patient was seen in the office yesterday for acute onset of right knee pain. Her knee popped while doing exercises after which she had persistent medial joint line pain. MRI showed a tear of the medial meniscus. In addition, she showed degenerative changes and cyst formation in the patella consistent with patellofemoral DJD. She did have some longstanding chronic symptoms of patellofemoral pain with squatting and kneeling. Examination confirmed medial joint line pain aggravated by twisting maneuvers and Sujey. We recommended surgical arthroscopy to evaluate the tear and trim. Consent was obtained. DESCRIPTION OF PROCEDURE: The patient was seen preoperatively and the operative limb was identified, confirmed and initialed. She received preoperative antibiotics and was taken to the operating room and placed under general anesthesia. She was kept in supine position and a tourniquet was applied to the right thigh over a padded sleeve. We secured the right thigh in a thigh holding device with the foot of the bed flexed 90 degrees at the knee level. Sterile prep and drape to the right lower extremity was carried out. We then exsanguinated the limb with an Esmarch and inflated the tourniquet to 300 mmHg. A lateral portal was established and the arthroscope was advanced into the knee joint. Fluid distention was commenced and examination was carried out. The patellofemoral joint was examined first and we noted intact patellofemoral cartilage with no more than grade 1 chondromalacia. The patella was not initially seen well. We proceeded to examine the suprapatellar pouch and medial gutter. No loose bodies were seen. The medial joint space was entered. Grade 3 chondromalacia of the medial femoral condyle was noted with a small flap tear that we identified by probing. The medial portal was established with needle localization, dilated, and then a probe was used to examine the articular cartilage as well as the posterior horn of the medial meniscus. The posterior horn was noted to have an unstable undersurface tear with an undersurface flap that extended back to the root area. We initially used a 3.4 mm shaver to debride the undersurface. We then identified a full thickness tear near the root. We proceeded to use a curved basket and shaver to alternately trim, refine, and smooth the meniscus back to a stable rim. The final unstable fragment was at the root itself and we debrided this with an electronic wand device. Final probing of the meniscus showed no unstable fragments and a smooth rim. The medial femoral condyle was lightly shaved to remove the flap discussed previously. The ACL was normal. Lateral joint space was entered and showed intact, normal-appearing articular cartilage with a stable meniscus to probing. Lateral and medial gutter were examined and were found to be normal. We switched portals and brought our scope in from the medial side. We then performed minimal debridement of the infrapatellar fat pad to promote full visualization of the patella. We identified a small flap tear of the articular cartilage on the patella which was then shaved. One final look around the joint was carried out. Suction shaver was used to remove fine debris. We then terminated the procedure. We injected 10 mL of 0.25% Marcaine with epinephrine into the joint and another 10 mL of 0.25% Marcaine with epinephrine were used to inject 5 mL into each portal site. The portals were closed with 4-0 nylon. Sterile dressings were applied and secured with an Goi wrap. She tolerated the procedure well.
== END 2024-07-16 13:13 | disposition home or self-care (01) ==
LOC: SDC 08:09
PROVIDERS: ATTEND Orthopaedic Surgery
DX: S83.241A Other tear of medial meniscus, current injury, right knee, initial encounter (principal); M25.561 Pain in right knee
CPT/HCPCS: 29881; 36415; 80053; 85027; 93005; J0171; J0690; J1100; J2405; J2704; J3010; A9270-GY

== ENCOUNTER 2025-01-07 06:48 | Day surgery (SDC) | payer BC ==
[2025-01-07] MEDS ORDERED: MARCAINE 0.25% PF/ EPI 1:200,000 IJ ONE (06:49)
[2025-01-07] MEDS ORDERED: CEFAZOLIN SODIUM ONE (07:36)
[2025-01-07] MEDS ORDERED: celeBREX 100 MG ONE (07:36)
[2025-01-07] MEDS ORDERED: TYLENOL EXTRA STRENGTH 500 MG ONE (07:36)
[2025-01-07] MEDS ORDERED: Decadron 4 MG ONE (07:37)
[2025-01-07] MEDS: celeBREX 100 MG PO ONE (07:39)
[2025-01-07] MEDS: Decadron 4 MG PO ONE (07:39)
[2025-01-07] MEDS: TYLENOL EXTRA STRENGTH 500 MG PO ONE (07:39)
[2025-01-07] MEDS: NEURONTIN PO ONE (07:41)
[2025-01-07 08:05] VITALS: RESP 16
[2025-01-07 09:08] LABS: BASOPHIL % 0.4 % (0.1-1.2); Basophil (Absolute #) 0.02 x10^3/uL (0.01-0.08); Eosinophil (Absolute #) 0.12 x10^3/uL (0.04-0.36); Hematocrit 36.6 % (34.1-44.9); Hemoglobin 12.3 g/dL (11.2-15.7); IMMATURE GRAN # 0.01 x10^3u/L (0.001-0.031); IMMATURE GRAN % 0.2 % (0.001-0.429); Lymphocyte (Absolute #) 1.75 x10^3/uL (1.18-3.74); Mean Corpuscular Hemoglobin 28.7 pg (25.6-32.2); Mean Corpuscular Hgb Concent. 33.6 g/dL (32.2-35.5); Monocyte (Absolute #) 0.46 x10^3/uL (0.24-0.86); NUCLEATED RBC # 0.00 x10^3u/L (0.00-0.012); NUCLEATED RBC % 0.0 % (0.00-0.2); Platelet Count 215 x10^3/uL (182-369); Red Blood Count 4.28 x10^6/uL (3.93-5.22); White Blood Count 5.3 x10^3/uL (3.98-10.04)
[2025-01-07 09:14] LABS: Calcium 9.5 mg/dL (8.4-10.2); Carbon Dioxide 27.0 mmol/L (22-30); Creatinine 1 1.01 mg/dL (0.52-1.04); EST GLOMERULAR FILTRATION RATE 64.1 ML/MIN; Glucose 100.0 mg/dL (74-106); Potassium 3.8 mmol/L (3.5-5.1); SGOT/AST 29.0 U/L (14-36); SGPT/ALT 16.0 U/L (0-35); Total Protein 6.5 g/dL (6.3-8.2)
--- NOTE | 2025-01-07 09:26 | XRAY ---
CLINICAL HISTORY: PRE-OP COMPARISON: The prior X-ray dated 04/02/2024 was used for comparison. TECHNIQUE: X-ray images of the chest were obtained in posteroanterior (PA) and lateral projections. FINDINGS: Pulmonary Parenchyma: A stable few calcified nodular opacities are seen in the right lower zone, most likely representing healed granulomas. Stable thin atelectatic bands are noted in the left mid zone. There is no evidence of consolidation or collapse. There is no evidence of pleural effusion or pleural thickening. Heart and Mediastinum: The heart size and shape are normal. There is no mediastinal widening or evidence of masses. Stable bilateral hilar small calcified lymph nodes are present. Bony Thorax: The bony thorax appears intact, without fractures or deformities. Soft Tissues: The soft tissues overlying the chest wall are unremarkable. IMPRESSION: 1. No acute cardiopulmonary abnormalities are identified. 2. A few stable calcified nodular opacities are seen in the right lower zone, most likely representing healed granulomas. 3. Stable thin atelectatic bands are noted in the left mid zone. Electronically Signed by: Ramiro Cavanaugh MD. (01/07/2025 08:37:19 EDT)
[2025-01-07] MEDS ORDERED: SUBLIMAZE 100 MCG/2 ML ONE (10:35)
[2025-01-07] MEDS ORDERED: propofoL IV ONE (10:35)
[2025-01-07] MEDS ORDERED: Versed 2 MG/2 ML Injection ONE (10:35)
[2025-01-07] MEDS ORDERED: ROCURONIUM BROMIDE IV ONE (11:02)
[2025-01-07] MEDS ORDERED: DILAUDID 2 MG INJECTION ONE (11:05)
[2025-01-07] MEDS ORDERED: BRIDION 200MG/2ML IV ONE (11:17)
[2025-01-07] MEDS ORDERED: Quelicin Fliptop 200 MG/10 ML ONE (11:17)
[2025-01-07] MEDS ORDERED: TORAdol 30 mg Injection ONE (11:58)
[2025-01-07 12:27] VITALS: TEMP 97
[2025-01-07 12:49] VITALS: BP 127/73; PULSE 85; O2SAT 96
--- NOTE | 2025-01-08 16:00 | OP ---
SURGERY DATE/TIME: 01/07/2025 0501-1915 PREOPERATIVE DIAGNOSES: Torn left medial meniscus, chondromalacia of patella left knee. POSTOPERATIVE DIAGNOSES: Torn left medial meniscus, chondromalacia of patella. PROCEDURE: Arthroscopy of the left knee with partial medial meniscectomy and chondroplasty of the patella. SURGEON: Mike Farrell II, ANESTHESIA: General. DESCRIPTION OF PROCEDURE AND FINDINGS: The patient was identified and informed consent was obtained. The patient was taken to the operative suite where she placed into the supine position on the operating table and general anesthetic was administered. Once an appropriate level of anesthesia had been obtained, a tourniquet was placed high on the left thigh. The left lower extremity was then placed in a knee conway, prepped and draped in the usual sterile fashion. Standard time-out was taken. At this point, the leg was exsanguinated and tourniquet elevated to 350 mmHg. Standard superomedial portal was created with an 11-blade. Trocar and cannula were placed in the joint. Joint was distended with the arthroscopic pump. Inferolateral portal was created with an 11-blade. The arthroscope was then placed in through a cannula. An 18-gauge spinal needle then identified the level for the inferomedial portal which was also created with a #11-blade and the knee was now inspected in a systematic fashion beginning in the suprapatellar pouch where there were no loose bodies or synovial hypertrophy. The undersurface of the patella had some grade 2 and 3 chondromalacia changes noted on the lateral facet. At this point, a chondroplasty was performed with the motorized shaver. Scope was then placed into the gutters where no loose bodies or synovial hypertrophy was encountered. Scope was placed into the medial compartment where a flap tear of the posterior horn of the medial meniscus was encountered. There was also noted to be some horizontal cleavage component to this, making this more of a complex tear. It was resected with the handheld biting instruments and then shaved to a smooth transition with the shaver. Femoral condyle and tibial plateau were noted to be intact without any significant degenerative changes or chondromalacia. Intercondylar notch region was inspected. The anterior cruciate ligament was noted to be intact without attenuation or tears. The scope was placed into the lateral compartment where the lateral meniscus was probed throughout its entirety on both the upper and under surfaces and noted to be intact without evidence of tears. At this point, the knee was reinspected and copiously irrigated. No further pathology identified. The instrumentation was removed and the portal sites were closed with interrupted 4-0 nylon suture. Knee was infiltrated with 30 mL of 0.25% Marcaine with epinephrine. Adaptics, 4 x 4's, and a standard postop arthroscopy dressing applied. The patient was transferred to the cart and taken to the recovery room in satisfactory condition, having tolerated the procedure well.
== END 2025-01-07 13:04 | disposition home or self-care (01) ==
LOC: SDC 06:48
PROVIDERS: ATTEND Orthopaedic Surgery
DX: S83.242A Other tear of medial meniscus, current injury, left knee, initial encounter (principal); M94.262 Chondromalacia, left knee; R73.03 Prediabetes; Z79.899 Other long term (current) drug therapy

== ENCOUNTER 2025-01-23 04:51 | Emergency (ER) | payer BC ==
[2025-01-23 05:03] VITALS: TEMP 96.3
[2025-01-23 05:12] VITALS: O2SAT 96
[2025-01-23] MEDS ORDERED: Hydromorphone 1 mg/ml Injection ONE (05:33)
[2025-01-23] MEDS ORDERED: Compazine 10 MG/2 ML ONE (05:33)
[2025-01-23] MEDS: Hydromorphone 1 mg/ml Injection IM ONE (05:35)
[2025-01-23] MEDS: Compazine 10 MG/2 ML IM ONE (05:35)
--- NOTE | 2025-01-23 06:26 | ERPHSYRPT ---
- History of Present Illness Source: patient Exam Limitations: no limitations Patient Subjective Stated Complaint: "I had surgery on my left knee by Dr. Farrell on the 07 of January. It was for my meniscus. Ever since, my knee has been hurting and the pain has got so bad I can't stand it. It's like something is twisting the bone. I have already went back to the Ortho clinic twice and saw Erica." Triage Nursing Assessment: Pt presents to ER with post-op pain in left knee from meniscus surgery performed by Dr. Farrell on Jan 07. She states pain is 10/10 scale and constant. States pain radiates down her leg and to posterior side of knee. She states that the pain has never stopped since surgery but has got so severe, she could not stand it anymore. She has already been back to the ortho clinic twice and is currently taking Percocet and Prednisone. States last dose of Percocet was at 0000 without any relief. Pt has tenderness to the medial side of her left knee, just below patella. She has full ROM. Pt skin is pink, warm, and dry. Respirations are easy and unlabored. Pt is alert and oriented x 3. Arrived in wheelchair but was able to get into bed with assist x 1. is at bedside. Method of Injury: other (Postsurgical) Quality: constant, aching, other (Squeezing) Severity of Pain-Max: moderate Severity of Pain-Current: moderate Lower Extremities Pain: knee: left (Anteriorly) Modifying Factors: Improves With: movement Associated Symptoms: other (Can bear weight but hurts to do so) Hx Tetanus, Diphtheria Vaccination/Date Given: Yes Hx Influenza Vaccination/Date Given: No Hx Pneumococcal Vaccination/Date Given: No Immunizations Up to Date: No - History of Present Illness Time Seen by Provider: 01/23/25 05:10 Physician History: This is an overweight 59-year-old white female patient who arrives from home via private vehicle and accompanied by spouse and is a patient Dr. Hinton with complaint of significant left knee postoperative pain. On 01/07/2025, the patient underwent a left knee surgical procedure. I read the operative report which states that the patient underwent an arthroscopy of the left knee with partial medial meniscectomy and chondroplasty of the patella. Since that time, the patient's pain has never let up. In fact, the patient was seen at the Ortho clinic clinic twice since her surgery date. Most recently, 01/21/2025, the patient received a prescription for Percocet and prednisone. She took a Percocet at midnight prior to arrival to our emergency department. She has not received much benefit in pain control. She denies chest pain. She denies shortness of breath. She describes the pain as a constant squeezing "like something is twisting the bone". The patient has a history of migraine headaches, diabetes, hypertension, hypothyroidism, hyperlipidemia. Patient is on Plavix. (MARY GRIFFIN) Allergies/Adverse Reactions: shrimp Allergy (Severe, Verified 01/23/25 04:57) Swelling of Tongue and Lips morphine Adverse Reaction (Mild, Verified 01/23/25 04:57) ITCH Home Medications: Amlodipine Besylate 5 mg [Norvasc 5 mg] 5 mg PO DAILY 04/20/19 [History] Calcium Carbonate [Calcium] 2 tab PO HS 01/29/23 [History] Liothyronine Sodium 5 mcg PO DAILY 01/31/24 [History] Aspirin EC 81 mg [Ecotrin 81 mg] 81 mg PO HS 02/22/24 [History] Atorvastatin Calcium 40 mg PO HS 02/22/24 [History] Metoprolol Succinate 25 mg Xl* [Toprol-Xl 25MG Tablets] 25 mg PO HS 02/22/24 [History] Cetirizine HCl 10 mg PO DAILY 10/09/24 [History] Cholecalciferol (Vitamin D3) [Vitamin D3] 1 tab PO DAILY 10/09/24 [History] Clopidogrel Bisulfate [Clopidogrel] 75 mg PO DAILY 10/09/24 [History] Cyanocobalamin (Vitamin B-12) [Vitamin B12] 1 tab PO DAILY 10/09/24 [History] Fluticasone Propionate 1 spray IN DAILY 10/09/24 [History] Isosorbide Mononitrate 30 mg [Imdur 30 MG] 1 tab PO DAILY 10/09/24 [History] Sumatriptan Succinate [Imitrex] 100 mg PO DAILY PRN 10/09/24 [History] hydroCHLOROthiazide [Hydrochlorothiazide] 12.5 mg PO DAILY 10/09/24 [History] Escitalopram Oxalate 10 mg PO DAILY 10/14/24 [History] Levothyroxine Sodium [Tirosint] 150 mcg PO DAILY 01/07/25 [History] Losartan Potassium [Cozaar] 25 mg PO DAILY 01/07/25 [History] Tirzepatide [Mounjaro] 2.5 mg SQ WEEKLY 01/07/25 [History] Oxycodone/APAP 5 mg/325 mg [Percocet Tablet 5/325Mg] 1 tab PO Q6HPRN PRN 01/23/25 [History] Prednisone 20 mg [Deltasone 20 mg] 20 mg PO DAILY 01/23/25 [History] Travel Risk - International Travel Have you traveled outside of the country in past 3 weeks: No - Emerging Infectious Disease Are you exhibiting symptoms associated with any current EIDs: No Symptoms: Abdominal Pain - Review of Systems Constitutional: No Symptoms Eyes: No Symptoms Ears, Nose, & Throat: No Symptoms Respiratory: No Symptoms Cardiac: No Symptoms Abdominal/Gastrointestinal: No Symptoms Genitourinary Symptoms: No Symptoms Musculoskeletal: Joint Pain (Left anterior knee pain), Other Skin: No Symptoms Neurological: No Symptoms Psychological: No Symptoms Endocrine: No Symptoms Hematologic/Lymphatic: No Symptoms Immunological/Allergic: No Symptoms All Other Systems: Reviewed and Negative - Past Medical History Pertinent Past Medical History: Yes Neurological History: Other ENT History: No Pertinent History Cardiac History: Hypertension, Myocardial Infarction ([place]) Respiratory History: Pneumonia, Sleep Apnea Endocrine Medical History: Diabetes Type II, Hypothyroidism Musculoskeletal History: No Pertinent History GI Medical History: Gallbladder Disease, Ulcer, Other History: No Pertinent History Psycho-Social History: No Pertinent History Female Reproductive Disorders: Other Other Medical History: N/T into medial side of R foot, 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 Raphael- pre diabetic. Graves Dz. Neuropathy. Obesity - Past Surgical History Past Surgical History: Yes Neuro Surgical History: No Pertinent History Cardiac: Cardiac Catheterization Respiratory: No Pertinent History Gastrointestinal: Cholecystectomy Genitourinary: No Pertinent History Musculoskeletal: Other Female Surgical History: Section, Hysterectomy, Lumpectomy Other Surgical History: carpal tunnel- bilateral, uterine ablation. Hardware in right foot, left knee Significant Family History: no pertinent family hx - Social History Smoking Status: Never smoker Exposure to second hand smoke: Yes Drug Use: none - Social Determinants of Health Will the patient participate in the screening: Yes Do you worry about a steady place to live?: No Do you have any problems with any of the following?: No known problems In the past 12 months,have you had to go without utilities?: No Transportation Issues: No Has anyone in your support network made you feel unsafe?: No Have you or anyone in your house had to go w/o enough food: No - Physical Exam General Appearance: mild distress, alert, anxiety, obese Eyes, Ears, Nose, Throat Exam: normal ENT inspection, moist mucous membranes Neck Exam: normal inspection, non-tender, supple, full range of motion Cardiovascular/Respiratory Exam: chest non-tender, no respiratory distress Gastrointestinal/Abdominal Exam: non-tender Back Exam: normal inspection, normal range of motion, No CVA tenderness, No vertebral tenderness Hips Exam: bilateral: non-tender, normal inspection, normal range of motion, no evidence of injury Legs Exam: bilateral leg: non-tender, normal inspection, normal range of motion, no evidence of injury Knees Exam: right knee: non-tender, normal inspection, no evidence of injury, left knee: bone tenderness (Anteriorly), soft tissue tenderness (Anteriorly), swelling (Anteriorly), other (Surgical site incision line intact without evidence of infection), bilateral knee: normal range of motion Ankle Exam: bilateral ankle: non-tender, normal inspection, normal range of motion, no evidence of injury Foot Exam: bilateral foot: non-tender, normal inspection, normal range of motion, no evidence of injury Neuro/Tendon Exam: normal sensation, normal motor functions, normal tendon functions, responds to pain, no evidence tendon injury Mental Status Exam: alert, oriented x 3, cooperative Skin Exam: normal color, warm, dry SpO2 Interpretation: normal SpO2: 96 O2 Delivery: Room Air - Nursing Vital Signs Nursing Vital Signs: Initial Vital Signs Temperature 96.3 F 01/23/25 04:59 Pulse Rate 92 H 01/23/25 04:59 Respiratory Rate 18 01/23/25 04:59 Blood Pressure 148/100 01/23/25 04:59 O2 Sat by Pulse Oximetry 99 01/23/25 04:59 Pain Scale Pain Intensity 10 - Course Nursing assessment & vital signs reviewed: Yes Ordered Tests: Active Orders 24 hr Category Date Time Status LOWER EXTREMITY WO CONTRAST [CT] Stat Exams 01/23/25 05:43 Completed Medication Summary Discontinued Medications Generic Name Dose Route Start Last Admin Trade Name Guillermina PRN Reason Stop Dose Admin Hydromorphone HCl 1 mg 01/23/25 05:31 01/23/25 05:35 Hydromorphone 1 Mg/1ml Inj IM 01/23/25 05:32 1 mg STAT ONE Administration Prochlorperazine Edisylate 5 mg 01/23/25 05:32 01/23/25 05:35 Prochlorperazine Edisylate 10 Mg/2 Ml Vial IM 01/23/25 05:33 5 mg STAT ONE Administration - Progress Progress: improved, pain not gone completely, re-examined Counseled pt/family regarding: diagnosis, need for follow-up, rad results - Progress Progress Note: 01/23/25 06:27 My medical decision making and the assignment of low to moderate complexity of this patient's medical issue today is based on review of the patient's past medical history, reviewed the patient's medication list, reviewed patient drug allergy list, history present illness and physical findings on examination. The workup in this patient includes CT scan of the patient's left knee. We will also provide the patient with injectable Dilaudid and injectable Compazine. Differential diagnosis includes was not limited to postoperative left knee pain, postoperative left knee fluid collection, postoperative left knee bony abnormality 01/23/25 07:[address] scan of the left knee without contrast results are still pending. I am transferring care of this patient to Dr. Ann at shift change. She will follow-up on this study and make final disposition. The disposition plan though is to discharge this patient from the emergency department and sent her to orthopedic clinic for further evaluation and management. 01/23/25 07:01 I discussed the plan of care with this patient. She was reexamined and her pain is significantly improved with the injections of Dilaudid and Compazine medi abdias (MARY GRIFFIN) Medical Desision Making - Independent Historian Additional History obtained from: Spouse - Departure Departure Disposition: Home Critical Care Time: No - Departure Clinical Impression: Postoperative pain of left knee Condition: Stable Referrals: NURY HINTON DO [Primary Care Provider, [facility]] - Follow up/PCP as directed Instructions: Knee pain Outpatient Orders: Ortho Referral Time Frame: 1 Day, Facility: [facility], Location: ORTHO CLINIC
[2025-01-23 07:08] VITALS: PULSE 71; RESP 16
--- NOTE | 2025-01-23 07:08 | XRAY ---
CLINICAL HISTORY: Severe left knee pain COMPARISON: None. TECHNIQUE: Contiguous axial CT images of the left lower extremity were obtained without intravenous contrast. Coronal and sagittal reconstructions were also performed and indicated to increase the sensitivity for detecting clinically relevant pathology. The CT scan was performed according to ALARA (as low as reasonably achievable). FINDINGS: A degenerative cyst is noted involving the articular surface of the patella. Mild left knee joint effusion is seen. No acute fracture or dislocation is identified. No destructive osseous lesion is present. The visualized muscles and tendons appear grossly unremarkable. There is no cortical destruction to suggest osteomyelitis. No abscess formation is seen. IMPRESSION: 1. A degenerative cyst is noted involving the articular surface of the patella. 2. Mild left knee joint effusion is seen. 3. No other abnormality is seen. Electronically Signed by: Gee Otto MD. (01/23/2025 07:05:21 EDT)
[2025-01-23 07:52] VITALS: BP 165/79
== END 2025-01-23 07:55 | disposition home or self-care (01) ==
LOC: ED 04:51
DX: M25.562 Pain in left knee (principal)

== ENCOUNTER 2025-03-08 21:20 | Emergency (ER) | payer BC ==
[2025-03-08 21:39] VITALS: TEMP 97.5
--- NOTE | 2025-03-08 21:43 | ERPHSYRPT ---
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 pt reports that now her entire face feels itchy. pt denies any new exposures. pt denies shortness of breath. Triage Nursing Assessment: pt is aox3, pupils perrl, afebrile, resps easy and non labored, cap refill < 3 seconds, radial pulses strong and equal, pt with mild swelling to the right eyelid, skin is intact. Physician History: 59-year-old female comes in the ED secondary to periorbital swelling and itching. States she also has some tingling and itchiness on her face and her mouth. Denies trouble breathing. Denies tongue swelling. and patient states that she was sitting and watching TV when the symptoms spontaneously occ urred. Denies any recent ingestions, make-ups, contacts, exposures. Timing/Duration: today Quality: itchy Severity: mild Location: face, other (Right periorbital area) Possible Causes: no cause identified Associated Symptoms: denies symptoms Allergies/Adverse Reactions: shrimp Allergy (Severe, Verified 03/08/25 21:40) Swelling of Tongue and Lips morphine Adverse Reaction (Mild, Verified 03/08/25 21:40) ITCH Home Medications: Amlodipine Besylate 5 mg [Norvasc 5 mg] 5 mg PO DAILY 04/20/19 [History] Calcium Carbonate [Calcium] 2 tab PO HS 01/29/23 [History] Liothyronine Sodium 5 mcg PO DAILY 01/31/24 [History] Aspirin EC 81 mg [Ecotrin 81 mg] 81 mg PO HS 02/22/24 [History] Atorvastatin Calcium 40 mg PO HS 02/22/24 [History] Metoprolol Succinate 25 mg Xl* [Toprol-Xl 25MG Tablets] 25 mg PO HS 02/22/24 [History] Cetirizine HCl 10 mg PO DAILY 10/09/24 [History] Cholecalciferol (Vitamin D3) [Vitamin D3] 1 tab PO DAILY 10/09/24 [History] Clopidogrel Bisulfate [Clopidogrel] 75 mg PO DAILY 10/09/24 [History] Cyanocobalamin (Vitamin B-12) [Vitamin B12] 1 tab PO DAILY 10/09/24 [History] Fluticasone Propionate 1 spray IN DAILY 10/09/24 [History] Isosorbide Mononitrate 30 mg [Imdur 30 MG] 1 tab PO DAILY 10/09/24 [History] Sumatriptan Succinate [Imitrex] 100 mg PO DAILY PRN 10/09/24 [History] hydroCHLOROthiazide [Hydrochlorothiazide] 12.5 mg PO DAILY 10/09/24 [History] Escitalopram Oxalate 10 mg PO DAILY 10/14/24 [History] Levothyroxine Sodium [Tirosint] 150 mcg PO DAILY 01/07/25 [History] Losartan Potassium [Cozaar] 25 mg PO DAILY 01/07/25 [History] Tirzepatide [Mounjaro] 2.5 mg SQ WEEKLY 01/07/25 [History] Oxycodone/APAP 5 mg/325 mg [Percocet Tablet 5/325Mg] 1 tab PO Q6HPRN PRN 01/23/25 [History] Prednisone 20 mg [Deltasone 20 mg] 20 mg PO DAILY 01/23/25 [History] Hx Tetanus, Diphtheria Vaccination/Date Given: Yes Hx Influenza Vaccination/Date Given: No Hx Pneumococcal Vaccination/Date Given: No Immunizations Up to Date: Yes Travel Risk - International Travel Have you traveled outside of the country in past 3 weeks: No - Emerging Infectious Disease Are you exhibiting symptoms associated with any current EIDs: No Symptoms: Abdominal Pain - Review of Systems Constitutional: No Fever, No Chills Eyes: Itchy, Other (Right periorbital swelling.), No Discharge, No Eye Pain, No Eye Redness, No Photophobia, No Vision Changes, No Double Vision Ears, Nose, & Throat: No Symptoms Respiratory: No Cough, No Dyspnea Cardiac: No Symptoms Abdominal/Gastrointestinal: No Abdominal Pain, No Nausea, No Vomiting, No Diarrhea Genitourinary Symptoms: No Dysuria Musculoskeletal: No Back Pain, No Neck Pain Skin: No Rash Neurological: No Dizziness, No Focal Weakness, No Sensory Changes Psychological: No Symptoms Endocrine: No Symptoms - Past Medical History Pertinent Past Medical History: Yes Neurological History: Other ENT History: No Pertinent History Cardiac History: Hypertension, Myocardial Infarction ([place]) Respiratory History: Pneumonia, Sleep Apnea Endocrine Medical History: Diabetes Type II, Hypothyroidism Musculoskeletal History: No Pertinent History GI Medical History: Gallbladder Disease, Ulcer, Other History: No Pertinent History Psycho-Social History: No Pertinent History Female Reproductive Disorders: Other Other Medical History: N/T into medial side of R foot, 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 Graves Dz. Neuropathy. Obesity - Past Surgical History Past Surgical History: Yes Neuro Surgical History: No Pertinent History Cardiac: Cardiac Catheterization Respiratory: No Pertinent History Gastrointestinal: Cholecystectomy Genitourinary: No Pertinent History Musculoskeletal: Other Female Surgical History: Section, Hysterectomy, Lumpectomy Other Surgical History: carpal tunnel- bilateral, uterine ablation. Hardware in right foot, left knee Significant Family History: no pertinent family hx - Social History Smoking Status: Never smoker Exposure to second hand smoke: Yes Drug Use: none - Social Determinants of Health Will the patient participate in the screening: Yes Do you worry about a steady place to live?: No Do you have any problems with any of the following?: No known problems In the past 12 months,have you had to go without utilities?: No Transportation Issues: No Has anyone in your support network made you feel unsafe?: No Have you or anyone in your house had to go w/o enough food: No - Nursing Vital Signs Nursing Vital Signs: Initial Vital Signs Temperature 97.5 F 03/08/25 21:30 Pulse Rate 83 03/08/25 21:30 Respiratory Rate 18 03/08/25 21:30 Blood Pressure 145/105 03/08/25 21:30 O2 Sat by Pulse Oximetry 98 03/08/25 21:30 Pain Scale Pain Intensity 0 - Physical Exam SpO2: 98 Ordered Tests: Medication Summary Discontinued Medications Generic Name Dose Route Start Last Admin Trade Name Guillermina PRN Reason Stop Dose Admin Methylprednisolone Sodium 0 mg 03/08/25 21:40 03/08/25 21:48 Succinate 125 mg/ Sterile IV 03/08/25 21:41 125 mg Water 2 ml STAT ONE Administration Diphenhydramine HCl 25 mg 03/08/25 21:40 03/08/25 21:51 Diphenhydramine Hcl 50 Mg/Ml Vial IV 03/08/25 21:41 25 mg STAT ONE Administration Diphenhydramine HCl Confirm 03/08/25 21:47 Diphenhydramine Hcl 50 Mg/Ml Vial Administered 03/08/25 21:48 Dose 50 mg .ROUTE .STK-MED ONE Famotidine 20 mg 03/08/25 21:40 03/08/25 21:51 Famotidine 20 Mg/1 Vial IV 03/08/25 21:41 20 mg STAT ONE Administration Famotidine Confirm 03/08/25 21:47 Famotidine 20 Mg/1 Vial Administered 03/08/25 21:48 Dose 20 mg IV .STK-MED ONE Methylprednisolone Sodium Succinate Confirm 03/08/25 21:47 Methylprednis Sod Succ 125 Mg/2 Ml Vial Administered 03/08/25 21:48 Dose 125 mg .ROUTE .STK-MED ONE Sterile Water Confirm 03/08/25 21:47 Water For Injection,Sterile 10 Ml Vial Administered 03/08/25 21:48 Dose 10 ml IJ .STK-MED ONE - Progress Progress Note: 03/08/25 22:49 On follow-up evaluation, the patient states she noticed some improvement. No other systemic symptoms. After further discussion still unable identify potential etiology. Had discussion the patient and to search for potential etiologies. Also encouraged to clean with soap and water in case there is some skin or contamination on her hands or other part of the body. Also discussed with the patient with steroids and Benadryl. Medical Decision Making: No signs of anaphylaxis. No other systemic symptoms. Symptoms remained focally periorbitally which seem to improve while patient was in the ED. Uncertain about current etiology. No signs of infection. Patient denies any eye pain so this does not appear to be ocular in nature. - Departure Clinical Impression: Edema of eyelid, Allergic reaction Condition: Stable Critical Care Time: No Referrals: NURY HINTON DO [Primary Care Provider, [facility]] - Follow up/PCP as directed Additional Instructions: Discharge/Care Plan CLAIREMARCELO ELIAS was seen on 03/08/25 in the Emergency Room. The patient was counseled regarding Diagnosis,Lab results, Imaging studies, need for follow up and when to return to the Emergency Room. Prescriptions given: Discharge Note I have spoken with the patient and/or caregivers. I have explained the patient's condition, diagnosis and treatment plan based on the information available to me at this time. I have answered the patient's and/or caregiver's questions and addressed any concerns. The patient and/or caregivers have as good understanding of the patient's diagnosis, condition and treatment plan as can be expected at this point. The vital signs have been stable. The patient's condition is stable and appropriate for discharge from the emergency department. The patient will pursue further outpatient evaluation with the primary care physician or other designated or consulting physician as outlined in the discharge instructions. The patient and/or caregivers are agreeable to this plan of care and follow-up instructions have been explained in detail. The patient and/or caregivers have received these instruction. The patient/and or caregivers are aware that any significant change in condition or worsening of symptoms should prompt an immediate return to this or the closest emergency department or call 911. Take the prednisone for the next 4 days starting tomorrow Take Benadryl every 4-6 hours as needed for itching and swelling Wash your hands and face with soap and water to remove any potential sources Follow-up with primary care prior to this week for reevaluation monitoring Return to the ED if symptoms worsen, trouble breathing, increased swelling, or further concerns. Prescriptions: Prednisone 20 mg [Deltasone 20 mg] 20 mg PO DAILY 4 Days #2 tablet
[2025-03-08] MEDS ORDERED: Sterile H2O 10 ml IJ ONE (21:47)
[2025-03-08] MEDS ORDERED: Pepcid 20 MG VIAL IV ONE (21:47)
[2025-03-08] MEDS ORDERED: BENADRYL 50 MG/ML ONE (21:47)
[2025-03-08] MEDS: solu-MEDROL 125 MG, Sterile H2O 10 ml 2 ML IV ONE (21:48)
[2025-03-08] MEDS: Pepcid 20 MG VIAL IV ONE (21:51)
[2025-03-08] MEDS: BENADRYL 50 MG/ML IV ONE (21:51)
[2025-03-08 23:03] VITALS: BP 164/93; PULSE 81; RESP 16; O2SAT 97
== END 2025-03-08 23:05 | disposition home or self-care (01) ==
LOC: ED 21:20
DX: T78.40XA Allergy, unspecified, initial encounter (principal); H02.843 Edema of right eye, unspecified eyelid; L29.89 Other pruritus; I10 Essential (primary) hypertension; E11.9 Type 2 diabetes mellitus without complications; Z79.52 Long term (current) use of systemic steroids; Z79.02 Long term (current) use of antithrombotics/antiplatelets; Z79.85 Long-term (current) use of injectable non-insulin antidiabetic drugs; Z79.899 Other long term (current) drug therapy